=== PATIENT | female | born 1980 | race Two or more races ===

== ENCOUNTER 2020-02-22 08:27 | Day surgery (SDC) | payer OTHER, SELFPAY ==
--- NOTE | 2020-02-21 10:27 | HO.ANESPROP2 ---
HPI - Anesthesia Eval Consult details Narrative: 39yo F for EGD and colonoscopy: RUQ pain, rectal discharge PMFSH Past Medical History Medical History (Updated 02/22/20 @ 09:53 by David Grace MD) Asthma Gastric ulcer Hemorrhoids IBS (irritable bowel syndrome) Menorrhagia Seasonal allergic rhinitis Surgical History Surgical History Hx of tubal ligation Social History Social History Smoking Status: Never smoker Second Hand Smoke Exposure: No Use of substances other than those prescribed or required for medical reasons: No Advance Directives: No Advance Directives Information Provided: Yes Advance Directives on File: No Meds Allergies Allergy/AdvReac Type Severity Reaction Status Date / Time pollen Allergy Mild Itchy Eyes Uncoded 02/22/20 08:42 Home Medications Medication Instructions Recorded Confirmed Type dicyclomine 1 cap PO TID 02/21/20 02/21/20 History norethindrone (contraceptive) 1 tab PO DAILY 02/21/20 02/21/20 History [Leidy] Exam Exam Date and Time: February 21, 2020 1027 Assessment and Plan Assessment Anesthesia Assessment: Chart Reviewed
[2020-02-21 11:02] VITALS: BMI 29.2
--- NOTE | 2020-02-22 08:33 | MHC.SHP ---
Pre-Procedural Eval Section A The patient is an INPATIENT: No Changes since office visit: Yes Patient answered all questions; No Cold of Flu in the past 2 weeks, No New Medical Problems and No Changes in Medication The History & Physical has been completed within 30 days and I have reviewed it.: Yes Section B Chief Complaint: Rectal Discharge, RUQ Abdominal Pain Details of Present Illness: abdominal pain, diarrhea alternating with constipation, rectal bleeding and rectal discharge. Relevant Family History (Specify if Yes): No Relevant Social History: None Present Medications: see Short Stay Collaborative assessment Medical History: Significant History ( Mixed irritable bowel syndrome. Menorrhagia with irregular cycle. Seasonal allergic rhinitis due to other allergic trigger. ) History of Previous Operations: Relevant previous surgery/procedure and date(s) ( tubal ligation.) Allergies: Allergies Allergy/AdvReac Type Severity Reaction Status Date / Time pollen Allergy Unknown Uncoded 10/05/19 00:00 Review of Systems Sugical H&P ROS: Negative: Cardiovascular, Respiratory and Neurological and Yes, Specify: Gastrointestinal (abd pain, rectal bleeding with discharge) Exam Surgical H&P Exam: Normal: Heart, Normal: Lungs, Normal: Extremities and Normal: Abdomen Plan Diagnosis/Plan: Unchanged Patient has been examined and remains a candidate for the planned procedure
--- NOTE | 2020-02-22 08:36 | PM.OP ---
Brief Operative Note Date of procedure: 02/22/20 Pre-op diagnosis: abdominal pain, diarrhea alternating with constipation, rectal discharge Post-op diagnosis: other (Gastric ulcer, gastritis, diverticulosis, hemorrhoids) Procedure: FLEXIBLE TRANSORAL UPPER GASTROINTESTINAL ENDOSCOPY WITH BIOPSIES AND COLONOSCOPY TILL CECUM WITH BIOPSIES UPPER ENDOSCOPY Consent: Indications for the procedure and potential complications of bleeding, perforation, reaction to medications and missed diagnosis were discussed with the patient and informed consent was obtained. Instrument: Olympus GIF H 190 mid size upper endoscope Monitoring: Vital signs and clinical assessment, continuous EKG monitoring, Pulse oximetry, Carbon Dioxide monitoring and blood pressure monitoring were done throughout the procedure. Procedure: The patient was placed in the left lateral decubitis position and pre-procedure medications were administered and a bite block was placed. The endoscope was inserted into the mouth and advanced under direct vision to the third part of duodenum. A careful inspection was made as the upper endoscope was withdrawn including a retroflexed examination of the proximal stomach; Findings and interventions are described below. Findings: Esophagus: GE junction at 35cms. No esophagitis or Blackwood?s. Stomach: A 1.5 to 2 cms chronic appearing ulcer in the antrum - biopsied. Mild gastric erythema. Biopsies were obtained to check for H Pylori. Grade 2 flap valve on retroflexed examination of the cardia. Duodenum: Normal bulb and descending duodenum. Biopsies were obtained from 3rd part of duodenum to check for celiac sprue. Intervention: Biopsies as noted above COLONOSCOPY PROCEDURE NOTE Consent: Indications for the procedure and potential complications of bleeding, perforation, reaction to medications and missed diagnosis were discussed with the patient and informed consent was obtained. Instrument: Olympus PCF H 190 L variable stiffness pediatric colonoscope Monitoring: Vital signs and clinical assessment, intermittent blood pressure monitoring, continuous EKG monitoring, Pulse oximetry and Carbon Dioxide monitoring were done throughout the procedure. Colon withdrawl time was 12 minutes. Procedure: The patient was placed in the left lateral decubitis position and pre-procedure medications were administered. After a digital rectal examination of the ano-rectum, the video colonoscope was inserted into the rectum and advanced through the colon to the cecum. The colonoscope was slowly withdrawn in a retrograde panoramic fashion and the colon mucosa was carefully examined including a retroflexed view of the rectum. Findings and interventions are described below. Procedure Difficulty: Without difficulty Findings: Terminal Ileum: distal 10 cm was examined and showed a few 3-5 mm benign-appearing nodules (likely lymphoid hyperplasia) which were biopsied. Cecum: Normal Ascending Colon: Normal Transverse Colon: Normal Descending Colon: Normal Sigmoid Colon: Mild diverticulosis Rectum: Normal Ano-rectum: Moderate internal hemorrhoids In hypertrophied anal papillae Colon preparation: Excellent Impression and Post Procedure Diagnosis: Endoscopy Findings: STOMACH: A 1.5 to 2 cms chronic appearing ulcer in the antrum - biopsied. Mild gastric erythema. Biopsies were obtained to check for H Pylori. Grade 2 flap valve on retroflexed examination of the cardia (pt admits to taking Alleve 2 tab 3 times a week for neck pains). DUODENUM: Normal - biopsied to check for celiac sprue. Colonoscopy Findings: No polyps were detected. Random biopsies were obtained from the TI, right and left colon and rectum. Mild diverticulosis seen in the sigmoid colon Moderate hemorrhoids in hypertrophied anal papillae on retroflexed exam. Plan: Await pathology results Patient to schedule a FU appointment in the GI Clinic with COOKIE Veliz or David Grace M.D to discuss bx results. Start Omeprazole 20 mg daily for PUD and hold NSAID use. Repeat EGD in 12 weeks to confirm gastric ulcer has healed. Repeat Colonoscopy in 10 years if Colon biopsies are normal. Above findings were reviewed with the patient and Gastritis and diverticulosis handouts were given in the discharge area Surgeon: David Grace MD Anesthesia: MAC (Dr Eller) Family Readiness Support Assistant: Wilfrido Rojas Estimated blood loss (mL): 0 Pathology: other (A. Small bowel, B. Gastric antrum, C. Gastric ulcer, D. TI, E. Rt Colon, F. Left Colon, G. Rectum) Condition: stable Disposition: PACU
[2020-02-22 08:37] VITALS: BP 120/81; PULSE 98; RESP 18; TEMP 36.1; O2SAT 98
--- NOTE | 2020-02-22 08:55 | HO.ANESPROP2 ---
[facility] Past Medical History Medical History Asthma IBS (irritable bowel syndrome) Menorrhagia Seasonal allergic rhinitis Surgical History Surgical History Hx of tubal ligation Social History Social History Smoking Status: Never smoker Second Hand Smoke Exposure: No Use of substances other than those prescribed or required for medical reasons: No Advance Directives: No Advance Directives Information Provided: Yes Advance Directives on File: No Meds Allergies Allergy/AdvReac Type Severity Reaction Status Date / Time pollen Allergy Mild Itchy Eyes Uncoded 02/22/20 08:42 Home Medications Medication Instructions Recorded Confirmed Type dicyclomine 1 cap PO TID 02/21/20 02/21/20 History norethindrone (contraceptive) 1 tab PO DAILY 02/21/20 02/21/20 History [Leidy] Exam Exam Date and Time: February 22, 2020 0855 Height,Weight and Vital Signs: Height 5 ft 4 in Weight 77.111 kg Last Vital Signs Temp 97 F 02/22/20 08:37 Pulse 98 02/22/20 08:37 Resp 18 02/22/20 08:37 BP 120/81 02/22/20 08:37 Pulse Ox 98 02/22/20 08:37 Airway Mallampati Class: II TM Dist: >3cm Neck ROM: Full Heart: rrr Lungs: clear Assessment and Plan Assessment Anesthesia Assessment: Anesthesia Plan Discussed Final Anesthetic Review NPO: Yes ASA Class: II Final Preanesthetic Review: No Changes in Pt Med Stat, Meds/Allgs Chart Reviewed, Consent Obtained/Reviewed and Anes Risks/Benef Reviewed Patient Risk: Low Procedure Risk: Low Anesthetic Plan Anesthetic Plan: MAC:
[2020-02-22] MEDS: Lactated Ringers 1,000 ML 100 ML IVCONT (09:01)
[2020-02-22 09:48] VITALS: BP 113/88; PULSE 92; RESP 20; TEMP 36.6; O2SAT 99
[2020-02-22 10:04] VITALS: BP 107/75; PULSE 80; RESP 17; TEMP 36.6; O2SAT 99
--- NOTE | 2020-02-22 10:55 | HO.POSTANES ---
Post Anesthesia Evaluation Post Anesthesia Evaluation Vital Signs: Vital Signs Temp Pulse Resp BP Pulse Ox 02/22/20 10:04 97.9 F 80 17 107/75 99 02/22/20 09:48 97.9 F 92 20 113/88 99 02/22/20 08:37 97 F 98 18 120/81 98 Anesthesia: Monitored Mental Status: Awake Pain Control: Satisfactory Nausea/Vomiting: None Hydration: Adequate Anesthesia-Related Issues: No Anes. Related Issues
== END 2020-02-22 10:54 | disposition home or self-care (01) ==
PROVIDERS: Visit Provider Internal Medicine Gastroenterology
PROC: (CPT 45380; principal; 2020-02-22 10:50)
DX: R19.8 Other specified symptoms and signs involving the digestive system and abdomen (principal); K58.2 Mixed irritable bowel syndrome; K57.30 Diverticulosis of large intestine without perforation or abscess without bleeding; K64.8 Other hemorrhoids; K62.89 Other specified diseases of anus and rectum; K29.70 Gastritis, unspecified, without bleeding; K25.9 Gastric ulcer, unspecified as acute or chronic, without hemorrhage or perforation; F41.9 Anxiety disorder, unspecified; J30.9 Allergic rhinitis, unspecified; Z79.51 Long term (current) use of inhaled steroids; Z79.899 Other long term (current) drug therapy
CPT/HCPCS: 45380; 43239; 88305; 88342

== ENCOUNTER → 2020-04-02 12:54 | Outpatient (BNVA) | payer OTHER, SELFPAY | PROVIDERS: PCP Internal Medicine; Referring Provider Internal Medicine; Visit Provider Dietitian, Registered | DX: Z76.89 Persons encountering health services in other specified circumstances (principal) ==

== ENCOUNTER 2020-08-14 14:58 | Outpatient (REF) | payer OTHER, SELFPAY ==
--- NOTE | ~2020-08-14 | XR_ITS ---
EXAMINATION: XR CHEST CLINICAL INFORMATION: Shortness of breath COMPARISON: None TECHNIQUE: 2 views of the chest were obtained. FINDINGS: No significant abnormality is noted involving the heart, lungs, mediastinum, bony thorax or soft tissues. XR/XR chest 2V IMPRESSION: No acute disease.
== END 2020-08-14 14:59 | disposition home or self-care (01) ==
LOC: HO.HMGCX 14:58
PROVIDERS: Visit Provider Hospitalist
DX: R06.02 Shortness of breath (principal)
CPT/HCPCS: 71046

== ENCOUNTER 2020-09-27 06:42 | Outpatient (REF) | payer OTHER, SELFPAY ==
[2020-09-27 11:06] LABS: MANUAL DIFF FLAG NO
[2020-09-27 11:12] LABS: Basophils Absolute Auto 0.1 X10*3/uL (0.0-0.2); Basophils Percent Auto 1.1 % (0-2); Eosinophils Absolute Auto 0.1 X10*3/uL (0.0-0.4); Eosinophils Percent Auto 1.9 % (0-4); Hematocrit 38.3 % (37-47); Hemoglobin 12.2 g/dl (12.0-16.0); Imm Gran Abs Auto 0.01 X10*3/uL (0.00-0.03); Imm Gran Pct Auto 0.2 % (0.0-0.4); Lymphocytes Absolute Auto 1.9 X10*3/uL (1.2-4.9); Lymphocytes Percent Auto 40.5 % (20-40); Mean Corpuscular HGB Conc 31.9 g/dl (31.0-35.0); Mean Corpuscular Hemoglobin 27.1 pg (27.0-33.0); Mean Corpuscular Volume 84.9 fL (80-98); Mean Platelet Volume 12.1 fL (9.4-12.3); Monocytes Absolute Auto 0.4 X10*3/uL (0.1-1.2); Monocytes Percent Auto 8.1 % (2-11); Neutrophils Absolute Auto 2.3 X10*3/uL (2.0-8.3); Neutrophils Percent Auto 48.2 % (45-73); Platelet Count 241 X10*3/uL (160-400); Red Blood Count 4.51 X10*6/uL (4.20-5.50); Red Cell Distribution Width 14.8 % (11.0-16.0); White Blood Count 4.7 X10*3/uL (4.8-10.8)
[2020-09-27 11:46] LABS: Alanine Aminotransferase 23 U/L (0-31); Anion Gap 8 (12-20); Aspartate Amino Transferase 19 U/L (5-31); Blood Urea Nitrogen 12 mg/dL (9-16); Calcium 8.8 mg/dL (8.4-10.2); Carbon Dioxide 27 mmol/L (22-29); Chloride 107 mmol/L (96-108); Cholesterol 258 mg/dL; Estimated Glomerular Filt Rate > 60; Glucose Fasting 92 mg/dL (60-99); HDL Cholesterol 68 mg/dL; LDL Cholesterol Calculated 167 mg/dl; Potassium 4.3 mmol/L (3.3-5.1); Sodium 138 mmol/L (135-145); Triglycerides 116 mg/dL
[2020-09-28 07:28] LABS: SARS COV2 IgG Positive (Negative)
== END 2020-09-27 06:43 | disposition home or self-care (01) ==
LOC: HO.HMGCLDS 06:42
PROVIDERS: PCP Internal Medicine; Visit Provider Internal Medicine
DX: Z00.01 Encounter for general adult medical examination with abnormal findings (principal); F41.8 Other specified anxiety disorders; J45.20 Mild intermittent asthma, uncomplicated; K25.9 Gastric ulcer, unspecified as acute or chronic, without hemorrhage or perforation; K58.1 Irritable bowel syndrome with constipation; K64.9 Unspecified hemorrhoids; I10 Essential (primary) hypertension; E04.9 Nontoxic goiter, unspecified; Z86.16 Personal history of COVID-19; Z86.39 Personal history of other endocrine, nutritional and metabolic disease
CPT/HCPCS: 36415; 80048; 80061; 82306; 84443; 84450; 84460; 85025; 86769

== ENCOUNTER 2020-10-30 11:04 | Outpatient (REF) | payer OTHER, SELFPAY ==
--- NOTE | ~2020-10-30 | MM_ITS ---
EXAMINATION: MM SCREENING DIGITAL BREAST TOMOSYNTHESIS, BILATERAL CLINICAL INFORMATION: Screening. Asymptomatic. The lifetime risk of breast cancer based on the Tyrer-Cuzick Model is 15.2%. COMPARISON: Mammography: None. TECHNIQUE: Digital breast tomosynthesis is performed in both the craniocaudal and mediolateral oblique views along with computer-aided detection (CAD). Synthesized 2D images are generated from the tomosynthesis. FINDINGS: The breasts are heterogeneously dense, which may obscure small masses (ACR BI-RADS breast composition Category c). No suspicious abnormal dominant masses or grouping of microcalcifications within the left breast is identified. There is nodular dense breast parenchyma present. Within the anterior medial aspect of the right breast, approximately 3 cm from nipple there is a circumscribed somewhat lobular density without spiculation or microcalcifications for which spot compression view and possible ultrasound is recommended. MM/MM tomosynthesis screening BI IMPRESSION: Right breast density for further evaluation with spot compression view and possible ultrasound. ASSESSMENT: BI-RADS 0: Incomplete - Need Additional Imaging Evaluation. RECOMMENDATION: 1. Additional views of the right breast. 2. Targeted ultrasound if warranted after review of the additional views. 3. Radiology department staff will contact the patient for additional imaging. This patient's information was entered into a reminder system with a target due date for their next mammogram.
== END 2020-10-30 11:05 | disposition home or self-care (01) ==
LOC: HO.MAMMO 11:04
PROVIDERS: Visit Provider Internal Medicine
DX: Z12.31 Encounter for screening mammogram for malignant neoplasm of breast (principal)
CPT/HCPCS: 77063; 77067

== ENCOUNTER 2020-11-13 10:40 | Outpatient (REF) | payer OTHER, SELFPAY ==
--- NOTE | ~2020-11-13 | MM_ITS ---
EXAMINATION: MM DIAGNOSTIC DIGITAL BREAST TOMOSYNTHESIS, RIGHT US DIAGNOSTIC ULTRASOUND BREAST, RIGHT CLINICAL INFORMATION: Recall from baseline exam for question of asymmetric density anterior medial right breast. Family history premenopausal breast cancer maternal aunt. TC score 15%. COMPARISON: Mammography: 10/30/2020, baseline. TECHNIQUE: Digital breast tomosynthesis is performed. 2D images are generated from the tomosynthesis. The following views are obtained: 3-D spot CC, 3-D ML. Ultrasound right breast is targeted to the medial breast. Grayscale imaging and color Doppler are performed without and with harmonics. FINDINGS: There are scattered areas of fibroglandular density (ACR BI-RADS breast composition Category b). Additional views show scattered fibroglandular densities without underlying mass or architectural abnormality. Ultrasound demonstrates no cystic or solid mass or architectural abnormality. No focal duct ectasia or skin thickening or edema tracking in soft tissue planes. Results are discussed with the patient at time of visit. MM/MM tomosynthesis added views R IMPRESSION: 1. Additional views show no asymmetric density or mass or architectural abnormality. 2. Unremarkable targeted right breast ultrasound. ASSESSMENT: BI-RADS 1: Negative RECOMMENDATION: Routine annual mammography screening. This patient's information was entered into a reminder system with a target due date for their next mammogram.
== END 2020-11-13 10:41 | disposition home or self-care (01) ==
LOC: HO.MAMMO 10:40
PROVIDERS: Visit Provider Internal Medicine
DX: R92.2 Inconclusive mammogram (principal)
CPT/HCPCS: 76642; 77061; 77065

== ENCOUNTER → 2021-06-24 11:26 | Outpatient (BNVA) | payer OTHER, SELFPAY | PROVIDERS: PCP Internal Medicine; Visit Provider Physician Assistant ==

== ENCOUNTER → 2021-09-23 11:58 | Outpatient (BNVA) | payer OTHER, SELFPAY | PROVIDERS: PCP Internal Medicine; Referring Provider Internal Medicine; Visit Provider Physician Assistant | DX: K58.1 Irritable bowel syndrome with constipation (principal) ==

== ENCOUNTER 2021-10-15 09:55 | Outpatient (REF) | payer OTHER, SELFPAY ==
--- NOTE | ~2021-10-15 | XR_ITS ---
EXAMINATION: XR CHEST CLINICAL INFORMATION: Shortness of breath COMPARISON: None TECHNIQUE: 2 views of the chest were obtained. FINDINGS: No significant abnormality is noted involving the heart, lungs, mediastinum, bony thorax or soft tissues. XR/XR chest 2V IMPRESSION: Unremarkable chest examination.
== END 2021-10-15 09:56 | disposition home or self-care (01) ==
LOC: HO.HMGCX 09:55
PROVIDERS: PCP Internal Medicine; Visit Provider Internal Medicine
DX: R06.02 Shortness of breath (principal); J06.9 Acute upper respiratory infection, unspecified; U07.1 COVID-19
CPT/HCPCS: 71046

== ENCOUNTER 2021-12-07 08:25 | Outpatient (REF) | payer OTHER, SELFPAY ==
--- NOTE | ~2021-12-07 | US_ITS ---
EXAMINATION: US THYROID CLINICAL INFORMATION: Nontoxic multinodular goiter. COMPARISON: None TECHNIQUE: Linear transducer grayscale and color Doppler examination with attention to the region of the thyroid. FINDINGS: SIZE: Measurements of the thyroid lobes and nodules are given in sagittal, anteroposterior and transverse dimensions respectively. Right Thyroid Lobe: 7.2 x 2.7 x 2.9 cm, volume 29.5 mL. Parenchyma: The gland echotexture is homogeneous. Thyroid vascularity is normal. Left Thyroid Lobe: 7.0 x 2.2 x 2.9 cm, volume 23.4 mL. Parenchyma: The gland echotexture is homogeneous. Thyroid vascularity is normal. Isthmus: 0.7 cm in maximum AP dimension. Estimated total number of nodules greater than or equal to 1 cm: 0. Irrigation Specialist nodules are described as follows: 1. Location: Left mid. Size: 0.6 x 0.4 x 0.6 cm, volume 0.07 mL. Nodule characteristics: Composition: Spongiform (0). Echogenicity: Anechoic (0). Shape: Not taller than wide (0). Margins: Smooth (0). Echogenic Foci: None (0). ACR TI-RADS total points: 0 ACR TI-RADS category: 1 NODES: No lymphadenopathy is seen in the tissue surrounding the thyroid gland. US/US thyroid IMPRESSION: 1. A small left thyroid lobe nodule is seen, as detailed. 2. There is a diffuse goiter. ACR TI-RADS RECOMMENDATION REFERENCE: Ultrasound-guided fine-needle aspiration, followup ultrasound, no further follow up. * TR1 (0 point) and TR 2 (2 points): No FNA or follow up * TR3 (3 points): FNA if more than or equal to 2.5 cm in maximum dimension, followup ultrasound in 1, 3 and 5 years if 1.5 to 2.4 cm in maximum dimension. * TR4 (4-6 points): FNA if more than or equal to 1.5 cm in maximum dimension, followup ultrasound in 1, 2, 3 and 5 years if 1 to 1.4 cm in maximum dimension. * TR5 (more than or equal to 7 points): FNA if more than or equal to 1 cm in maximum dimension, followup ultrasound every year for 5 years if 0.5 to 0.9 cm in maximum dimension. * TR3, TR4 or TR5 nodules that are below the size threshold for follow up receive no follow up.
== END 2021-12-07 08:26 | disposition home or self-care (01) ==
LOC: HO.HMGCX 08:25
PROVIDERS: PCP Internal Medicine; Visit Provider Internal Medicine
DX: E04.2 Nontoxic multinodular goiter (principal)
CPT/HCPCS: 76536

== ENCOUNTER 2021-12-24 09:04 | Outpatient (REF) | payer OTHER, SELFPAY ==
[2021-12-24 11:55] LABS: Alanine Aminotransferase 14 U/L (0-31); Albumin Level 4.2 g/dL (3.5-5.0); Alkaline Phosphatase 44 U/L (39-117); Aspartate Amino Transferase 15 U/L (5-31); Bilirubin Direct 0.2 mg/dL (0.0-0.5); Bilirubin Total 0.5 mg/dL (0.0-1.0); Total Protein 7.1 g/dL (6.5-8.0)
== END 2021-12-24 09:05 | disposition home or self-care (01) ==
LOC: HO.HMGCLDS 09:04
PROVIDERS: PCP Internal Medicine; Visit Provider Internal Medicine
DX: R10.11 Right upper quadrant pain (principal)
CPT/HCPCS: 36415; 80076

== ENCOUNTER 2022-01-19 09:47 | Outpatient (REF) | payer OTHER, SELFPAY ==
--- NOTE | ~2022-01-19 | US_ITS ---
EXAMINATION: US ABDOMEN COMPLETE CLINICAL INFORMATION: Right upper quadrant pain x2 months. COMPARISON: None TECHNIQUE: Real-time imaging of the abdominal viscera. FINDINGS: PANCREAS: Normal. ABDOMINAL AORTA: The proximal, mid, and distal segments are normal in caliber. INFERIOR VENA CAVA: Visualized portions are normal. LIVER: Normal. The liver is normal in size. The liver contour is normal. Parenchymal echogenicity is normal. No focal hepatic lesion. There is no intrahepatic biliary duct dilatation seen. GALLBLADDER: Gallbladder wall thickness is 0.23 cm. The gallbladder is physiologically distended without evidence of stones, sludge, polyps, wall thickening or pericholecystic fluid. COMMON BILE DUCT: Normal in caliber measuring 0.31 cm in diameter. RIGHT KIDNEY: Normal. No hydronephrosis. No renal calculi or focal parenchymal lesions. The kidney measures 10.2 cm in maximum dimension. LEFT KIDNEY: Normal. No hydronephrosis. No renal calculi or focal parenchymal lesions. The kidney measures 10.9 cm in maximum dimension. SPLEEN: Normal. The spleen measures 12.5 cm in maximum dimension. FREE FLUID: None. US/US abdomen complete IMPRESSION: Unremarkable complete abdomen ultrasound.
== END 2022-01-19 09:48 | disposition home or self-care (01) ==
LOC: HO.HMGCX 09:47
PROVIDERS: PCP Internal Medicine; Visit Provider Internal Medicine
DX: R10.11 Right upper quadrant pain (principal)
CPT/HCPCS: 76700

== ENCOUNTER 2022-02-17 12:13 | Outpatient (REF) | payer OTHER, SELFPAY ==
--- NOTE | ~2022-02-17 | MM_ITS ---
EXAMINATION: MM SCREENING DIGITAL BREAST TOMOSYNTHESIS, BILATERAL CLINICAL INFORMATION: Screening. Asymptomatic. The lifetime risk of breast cancer based on the Tyrer-Cuzick Model is 13.5%. COMPARISON: Mammography: 11/13/2020 and 10/30/2020. TECHNIQUE: Digital breast tomosynthesis is performed in both the craniocaudal and mediolateral oblique views along with computer-aided detection (CAD). Synthesized 2D images are generated from the tomosynthesis. FINDINGS: The breasts are heterogeneously dense, which may obscure small masses (ACR BI-RADS breast composition Category c). There is a stable parenchymal pattern of the right breast. Within the deep superior aspect of the left breast there is an asymmetric density present which spot compression view is recommended. MM/MM tomosynthesis screening BI IMPRESSION: Left breast density for further evaluation. ASSESSMENT: BI-RADS 0: Incomplete - Need Additional Imaging Evaluation RECOMMENDATION: 1. Additional views of the left breast. 2. Targeted ultrasound if warranted after review of the additional views. 3. Radiology department staff will contact the patient for additional imaging. This patient's information was entered into a reminder system with a target due date for their next mammogram.
== END 2022-02-17 12:14 | disposition home or self-care (01) ==
LOC: HO.MAMMO 12:13
PROVIDERS: PCP Internal Medicine; Visit Provider Internal Medicine
DX: Z12.31 Encounter for screening mammogram for malignant neoplasm of breast (principal)
CPT/HCPCS: 77063; 77067

== ENCOUNTER 2022-06-09 14:02 | Outpatient (REF) | payer OTHER, SELFPAY ==
--- NOTE | ~2022-06-09 | MM_ITS ---
EXAMINATION: MM DIAGNOSTIC DIGITAL BREAST TOMOSYNTHESIS, LEFT CLINICAL INFORMATION: Asymmetric density deep superior left breast. COMPARISON: Mammography: February 17, 2022 and studies dating back to October 30, 2020 TECHNIQUE: Digital breast tomosynthesis is performed. 2D images are generated from the tomosynthesis. The following views are obtained: 90 degree mediolateral and mediolateral oblique views of the left breast. FINDINGS: The breasts are heterogeneously dense, which may obscure small masses (ACR BI-RADS breast composition Category c). Additional views show no significant mass, architectural abnormality, or abnormal calcifications. The density appears to have represented superimposition of structures. Results are provided to the patient at time of visit by the technologist. MM/MM tomosynthesis added views L IMPRESSION: No mammographic evidence of malignancy. ASSESSMENT: BI-RADS 1: Negative RECOMMENDATION: Routine annual mammography screening. This patient's information was entered into a reminder system with a target due date for their next mammogram.
== END 2022-06-09 14:03 | disposition home or self-care (01) ==
LOC: HO.MAMMO 14:02
PROVIDERS: PCP Internal Medicine; Visit Provider Internal Medicine
DX: R92.2 Inconclusive mammogram (principal)
CPT/HCPCS: 77061; 77065

== ENCOUNTER 2022-10-16 07:48 | Outpatient (REF) | payer OTHER, SELFPAY ==
[2022-10-16 11:03] LABS: MANUAL DIFF FLAG NO
[2022-10-16 11:10] LABS: Basophils Absolute Auto 0.1 X10*3/uL (0.0-0.2); Basophils Percent Auto 1.2 % (0-2); Eosinophils Percent Auto 0.8 % (0-4); Hematocrit 37.1 % (37.0-47.0); Hemoglobin 11.7 g/dl (12.0-16.0); Imm Gran Abs Auto 0.01 X10*3/uL (0.00-0.03); Imm Gran Pct Auto 0.2 % (0.0-0.4); Lymphocytes Absolute Auto 1.5 X10*3/uL (1.2-4.9); Lymphocytes Percent Auto 31.2 % (20-40); Mean Corpuscular HGB Conc 31.5 g/dl (31.0-35.0); Mean Corpuscular Hemoglobin 25.8 pg (27.0-33.0); Mean Corpuscular Volume 81.9 fL (80.0-98.0); Mean Platelet Volume 11.8 fL (9.4-12.3); Monocytes Absolute Auto 0.3 X10*3/uL (0.1-1.2); Monocytes Percent Auto 5.9 % (2-11); Neutrophils Percent Auto 60.7 % (45-73); Platelet Count 250 X10*3/uL (160-400); Red Blood Count 4.53 X10*6/uL (4.20-5.50); Red Cell Distribution Width 16.6 % (11.0-16.0); White Blood Count 4.9 X10*3/uL (4.8-10.8)
[2022-10-16 11:35] LABS: Alanine Aminotransferase 9 U/L (0-31); Anion Gap 9 (12-20); Aspartate Amino Transferase 14 U/L (5-31); Blood Urea Nitrogen 14 mg/dL (9-16); Calcium 9.3 mg/dL (8.4-10.2); Carbon Dioxide 23 mmol/L (22-29); Chloride 109 mmol/L (96-108); Cholesterol 227 mg/dL; Estimated Glomerular Filt Rate > 60; Glucose Fasting 93 mg/dL (60-99); HDL Cholesterol 53 mg/dL; LDL Cholesterol Calculated 159 mg/dl; Potassium 4.2 mmol/L (3.3-5.1); Sodium 137 mmol/L (135-145); Triglycerides 79 mg/dL
[2022-10-16 11:51] LABS: Free T4 (Free Thyroxine) 0.94 ng/dL (0.71-1.85); Vitamin D 25-OH Total 32.1 ng/mL (>30)
[2022-10-18 19:18] LABS: Thyroid Peroxidase Antibodies 1 IU/mL (<9)
== END 2022-10-16 07:49 | disposition home or self-care (01) ==
LOC: HO.HMGCLDS 07:48
PROVIDERS: PCP Internal Medicine; Visit Provider Internal Medicine
DX: Z00.01 Encounter for general adult medical examination with abnormal findings (principal); E04.2 Nontoxic multinodular goiter; E55.9 Vitamin D deficiency, unspecified; E78.5 Hyperlipidemia, unspecified; F41.9 Anxiety disorder, unspecified; J45.20 Mild intermittent asthma, uncomplicated; K58.1 Irritable bowel syndrome with constipation; E03.9 Hypothyroidism, unspecified
CPT/HCPCS: 36415; 80048; 80061; 82306; 84439; 84450; 84460; 85025; 86376

== ENCOUNTER → 2022-10-20 12:23 | Outpatient (BNVA) | payer OTHER, SELFPAY | PROVIDERS: Visit Provider Physician Assistant ==

== ENCOUNTER 2023-07-07 09:26 | Outpatient (AMB) | payer OTHER, SELFPAY ==
[2023-07-07 11:03] VITALS: BP 116/68; PULSE 96; TEMP 36.6; O2SAT 98; BMI 32.8
--- NOTE | 2023-07-07 11:03 | AM.OFFWIN_ITS ---
Intake Vital Signs 07/07/23 11:03 Height 5 ft 4 in Weight 191 lb BMI 32.8 BP 116/68 Blood Pressure Location Lt brachial Position Sitting Pulse 96 Pulse Source Pulse Oximeter Temp 97.9 F Temp Source Temporal Artery Scan Pulse Oximetry (%) 98 Oxygen Delivery Method Room Air Intake Visit Reasons: EP RT side pain Intake Note: pt is here today for rt side pain started 1 month ago Patient Tobacco Use Status: Never used Tobacco Allergies pollen Allergy (Mild, Uncoded 09/29/22 13:15) Itchy Eyes Do you need a note to return to daycare/school/sports/work: No HPI EP RT side pain HPI Details This is a 42-year-old female patient who presents today with right upper quadrant pain for about 1 month. States this is intermittent, and a dull pulling/aching sensation 3/10. States that it is worse when in a seated position, and resolves when she is lying down. Denies any cramping, epigastric pain, fever, chills, nausea or vomiting. States she has IBS so frequently does have diarrhea, however no recent change in bowel habits. States that she did have a fall down a flight of stairs about 1 year ago, at which time she did injure her right side, however she was evaluated at the emergency department and did not sustain any fractures. Denies any new trauma. No urinary issues. [facility], LAT[facility] Medical History Multinodular non-toxic goiter Dyslipidemia Dyslipidemia (high LDL; low HDL) Vitamin D deficiency Lumbago with sciatica, right side Depression with anxiety Mild intermittent asthma COVID-19 virus infection Hemorrhoids Gastric ulcer Seasonal allergic rhinitis Menorrhagia IBS (irritable bowel syndrome) Surgical History History of esophagogastroduodenoscopy (EGD) H/O colonoscopy Hx of tubal ligation Family History Father No problems noted. Paternal Grandmother No problems noted. Paternal Uncle Mental health disorder Paternal Grandmother Mental health disorder Mother Mental health disorder Social History Housing: Apartment Alcohol intake: current Alcohol intake frequency: holidays/special occasions only Patient Tobacco Use Status: Never used Tobacco e-Cigarette/Vaping Use: Never Used Second Hand Smoke Exposure: No service: No Current occupational status: employed Cognitive needs: No Hearing needs: No Vision needs: Yes Review of Systems Const All systems reviewed & are unremarkable except as noted in HPI and below Physical Exam Vital Signs: Last Vital Signs Temp 97.9 F 07/07/23 11:03 Pulse 96 07/07/23 11:03 BP 116/68 07/07/23 11:03 Pulse Ox 98 07/07/23 11:03 Oxygen Delivery Method Room Air 07/07/23 11:03 BMI result Body Mass Index 32.8 Const General: cooperative and no acute distress Resp Effort & Inspection: normal respiratory effort and able to speak in complete sentences Auscultation: clear to auscultation bilaterally Cardio Palpation: normal PMI Rate: regular rate Rhythm: regular rhythm GI Other: Mild tenderness to deep palpation RUQ. No rebound tenderness. No guarding. Inspection: Yes normal to inspection Palpation (GI): Soft to palpation Percussion: Yes normal to percussion Auscultation: normal bowel sounds General: Yes bladder normal to palpation and Yes no CVA tenderness Bimanual exam- vagina & uterus: bladder normal to palpation Back/Spine/Pelvis Back: no CVA tenderness Skin General skin exam: no rashes or lesions noted Extrem General: Yes capillary refill normal and Yes no clubbing, cyanosis or edema Psych Appearance: grossly normal Mental Status: mental status grossly normal Speech and movement: Normal speech and movement present Assessment & Plan Assessment & Plan (1) Right upper quadrant pain: Code(s): R10.11 - Right upper quadrant pain Plan: Patient has a one-month history of dull right upper quadrant pain. It does seem to change and resolve with movement, and so may represent a musculoskeletal condition in nature. I am going to order some labs for her today, and will follow-up with her via phone once these are available. I also would like her to follow up with her PCP Dr. Cherry within the next several weeks should this condition persist, as she has not due for an annual exam until September. I advised her to go to the emergency department if her pain worsens or new symptoms develop. She verbalizes understanding and agrees to plan. Orders: Orders Basic Metabolic Panel Today R10.11 - Right upper quadrant pain Liver Panel Today R10.11 - Right upper quadrant pain Complete Blood Count Auto Diff Today R10.11 - Right upper quadrant pain Coding Level of Care Code Est Pt Level 3 (02798) Diagnoses Right upper quadrant pain R10.11
== END 2023-07-07 12:16 | disposition home or self-care (01) ==
PROVIDERS: PCP Internal Medicine; Visit Provider Nurse Practitioner Family
DX: R10.11 Right upper quadrant pain (principal)
CPT/HCPCS: 99213

== ENCOUNTER 2023-07-07 12:08 | Outpatient (REF) | payer OTHER, SELFPAY ==
[2023-07-07 13:07] LABS: MANUAL DIFF FLAG NO
[2023-07-07 13:20] LABS: Basophils Absolute Auto 0.1 X10*3/uL (0.0-0.2); Basophils Percent Auto 1.1 % (0-2); Eosinophils Percent Auto 0.9 % (0-4); Hematocrit 41.7 % (37.0-47.0); Hemoglobin 13.8 g/dl (12.0-16.0); Imm Gran Abs Auto 0.01 X10*3/uL (0.00-0.03); Imm Gran Pct Auto 0.2 % (0.0-0.4); Lymphocytes Absolute Auto 1.5 X10*3/uL (1.2-4.9); Lymphocytes Percent Auto 34.1 % (20-40); Mean Corpuscular HGB Conc 33.1 g/dl (31.0-35.0); Mean Corpuscular Hemoglobin 28.5 pg (27.0-33.0); Monocytes Absolute Auto 0.3 X10*3/uL (0.1-1.2); Monocytes Percent Auto 6.7 % (2-11); Neutrophils Absolute Auto 2.5 x10*3/uL (2.0-8.3); Platelet Count 246 X10*3/uL (160-400); Red Blood Count 4.85 X10*6/uL (4.20-5.50); Red Cell Distribution Width 15.1 % (11.0-16.0); White Blood Count 4.5 X10*3/uL (4.8-10.8)
[2023-07-07 14:06] LABS: Alanine Aminotransferase 28 U/L (0-31); Albumin Level 4.1 g/dL (3.5-5.0); Alkaline Phosphatase 52 U/L (39-117); Anion Gap 12 (12-20); Aspartate Amino Transferase 21 U/L (5-31); Bilirubin Direct 0.1 mg/dL (0.0-0.5); Bilirubin Total 0.3 mg/dL (0.0-1.0); Blood Urea Nitrogen 14 mg/dL (9-16); Calcium 9.6 mg/dL (8.4-10.2); Carbon Dioxide 27 mmol/L (22-29); Chloride 104 mmol/L (96-108); Estimated Glomerular Filt Rate > 60; Glucose Random 90 mg/dL (60-115); Sodium 139 mmol/L (135-145); Total Protein 7.5 g/dL (6.5-8.0)
== END 2023-07-07 12:09 | disposition home or self-care (01) ==
LOC: HO.HMGCLDS 12:08
PROVIDERS: PCP Internal Medicine; Visit Provider Nurse Practitioner Family
DX: R10.11 Right upper quadrant pain (principal)
CPT/HCPCS: 36415; 80048; 80076; 85025

== ENCOUNTER 2023-07-15 11:28 | Outpatient (REF) | payer OTHER, SELFPAY | END 2023-07-15 11:29 | disposition home or self-care (01) | LOC: HO.MAMMO 11:28 | PROVIDERS: PCP Internal Medicine; Visit Provider Internal Medicine | DX: Z12.31 Encounter for screening mammogram for malignant neoplasm of breast (principal) | CPT/HCPCS: 77063; 77067 ==

== ENCOUNTER → 2023-07-15 11:30 | Outpatient (BNV) | payer OTHER, SELFPAY | PROVIDERS: PCP Internal Medicine; Visit Provider Radiology Diagnostic Radiology | DX: Z12.31 Encounter for screening mammogram for malignant neoplasm of breast (principal) | CPT/HCPCS: 77063; 77067 ==

== ENCOUNTER 2023-08-04 10:21 | Outpatient (AMB) | payer OTHER, SELFPAY ==
[2023-08-04 10:24] VITALS: BP 112/60; PULSE 87; O2SAT 98; BMI 33.5
--- NOTE | 2023-08-04 10:24 | A.OFFPC_ITS ---
Vital Signs 08/04/23 10:24 Height 5 ft 4 in Weight 195 lb BMI 33.5 BP 112/60 Blood Pressure Location Lt brachial Position Sitting Pulse 87 Pulse Source Pulse Oximeter Pulse Oximetry (%) 98 Oxygen Delivery Method Room Air Intake Visit Reasons: follow up from walk in per CB Intake Note: Pt is here today to f/u walkin Rt upper quadrant pain going to Rt leg Allergies pollen Allergy (Mild, Uncoded 08/07/23 21:09) Itchy Eyes Medication List - Last Reconciled 08/07/23 by Latosha Cherry MD albuterol sulfate 90 mcg/actuation 2 puffs inhalation QID PRN albuterol sulfate 0.63 mg (3 mL) inhalation QID PRN 30 days buspirone 5 mg PO TID cyclobenzaprine 10 mg PO BEDTIME PRN dicyclomine 10 mg PO TID PRN fluticasone propionate 50 mcg/actuation 1 spray intranasal DAILY omeprazole 40 mg (2 x 20 mg) PO DAILY Tobacco use date assessed: 08/04/23 Dental Screening Dental Screen Date: 08/04/23 Did you have a dental visit in the last 12 months?: Yes Did you have a dental problem in the last 6 months where you did not have access to dental care?: No Was dental information given to patient?: Patient has dentist HPI follow up from walk in per CB HPI Details 42-year-old female with history of hyper lipidemia, anxiety disorder, presents today after recent visit at the walk-in clinic complaining of right upper quadrant pain, which has been present now for about 1 month. She describes pain as intermittent, and a dull pulling/aching sensation , worse when in a seated position, and resolves when she is lying down. Denies any cramping, epigastric pain, fever, chills, nausea or vomiting. States she has IBS so frequently does have diarrhea, however no recent change in bowel habits. Has been diagnosed to have gastric ulcer a year ago but was unable to get an upper endoscopy due to insurance issues, currently has been taking omeprazole 40 mg daily, which has helped. [facility] Medical History (Updated 08/07/23 @ 22:10 by Latosha Cherry MD) Left thyroid nodule Dyslipidemia Dyslipidemia (high LDL; low HDL) Vitamin D deficiency Lumbago with sciatica, right side Depression with anxiety Mild intermittent asthma COVID-19 virus infection Hemorrhoids Gastric ulcer Seasonal allergic rhinitis Menorrhagia IBS (irritable bowel syndrome) Surgical History History of esophagogastroduodenoscopy (EGD) H/O colonoscopy Hx of tubal ligation Family History Father No problems noted. Paternal Grandmother No problems noted. Paternal Uncle Mental health disorder Paternal Grandmother Mental health disorder Mother Mental health disorder Social History Housing: Apartment Alcohol intake: current Alcohol intake frequency: holidays/special occasions only Patient Tobacco Use Status: Never used Tobacco e-Cigarette/Vaping Use: Never Used Second Hand Smoke Exposure: No service: No Current occupational status: employed Cognitive needs: No Hearing needs: No Vision needs: Yes Questionnaire PHQ-9 Over the last 2 weeks, how often have you been bothered by any of the following problems? 1. Little interest or pleasure in doing things: several days 2. Feeling down, depressed, or hopeless: several days 3. Trouble falling or staying asleep, or sleeping too much: more than half the days 4. Feeling tired or having little energy: nearly every day 5. Poor appetite or overeating: not at all 6. Feeling bad about yourself - or that you are a failure or have let yourself or your family down: more than half the days 7. Trouble concentrating on things, such as reading the newspaper or watching television: several days 8. Moving or speaking so slowly that other people could have noticed. Or the opposite - being so fidgety or restless that you have been moving around a lot more than usual: several days 9. Thoughts that you would be better off or of hurting yourself in some way: not at all Total score: 11 Source: Developed by Drs. Jose Sanchez, Giselle Valdez, Jose Tabor and colleagues, with an educational declan from [employer]. Thrive Questionnaire Date Thrive assessed: 08/04/23 I am a: Patient What is your living situation today?: I have a steady place to live Within the past 12 months, did the food you bought not last and you didn't have the money to get more?: Never true Within the past 12 months, did you worry whether your food would run out before you got money to buy more?: Never true Do you have trouble paying for medicines?: No Do you have trouble getting transportation to medical appointments?: No Do you have trouble paying your heating and electricity bill?: No Do you have trouble taking care of your child, family member or friend?: No Do you have trouble with day-to-day activities such as bathing, preparing meals, shopping, managing finances, etc.?: No Are you currently unemployed and looking for a job?: No Are you interested in more education?: No THRIVE Score: 0 AUDIT C Alcohol Use Questionnaire (AUDIT-C) 1. How often do you have a drink containing alcohol?: Monthly or less 2. How many drinks containing alcohol do you have on a typical day when you are drinking?: 1 or 2 3. How often do you have six or more drinks on one occasion?: Never Total Score: 1 ANTWAN-7 AMB Questionnaire ANTWAN-7 Date ANTWAN - 7 assessed: 08/04/23 Feeling nervous, anxious, or on edge: 1 = Several days Not being able to stop or control worryin = Not at all Worrying too much about different things: 1 = Several days Trouble relaxin = Several days Being so restless that it is hard to sit still: 1 = Several days Becoming easily annoyed or irritable: 0 = Not at all Feeling afraid as if something awful might happen: 0 = Not at all Total ANTWAN-7 score (0-4 normal; 5-9 mild; 10-14 moderate; 15-21 severe): 4 Source: Developed by Drs. Jose Sanchez, Giselle Valdez, Jose Tabor and colleagues, with an educational declan from [employer]. ANTWAN-7 Assessment Billing ANTWAN-7 Assessment Tool: ANTWAN-7 Assessment 58712 Review of Systems Const Denies headache(s) and Denies malaise ENT Denies dysphagia, Denies vertigo, Denies dizziness, Denies headache(s), Denies hoarseness, Denies sinus pressure, Denies sore throat and Denies throat swelling Card Denies chest pain, Denies rapid heart rate, Denies irregular heart rhythm, Denies lightheadedness and Denies dyspnea Resp Denies chest congestion, Denies cough and Denies dyspnea GI Denies melena, Denies hematochezia, Denies dysphagia, Denies dyspepsia and Reports heartburn Reports no additional complaints Musc Reports no additional complaints Skin/Breast Denies rash Neuro Denies vertigo, Denies dizziness and Denies headache(s) Psych Reports no additional complaints Endo Reports no additional complaints Trent/Lymph Denies easy bleeding and Denies easy bruising Aller/Immun Denies throat swelling Physical exam (Primary Care) Vital Signs: Last Vital Signs Pulse 87 08/04/23 10:24 BP 112/60 08/04/23 10:24 Pulse Ox 98 08/04/23 10:24 Oxygen Delivery Method Room Air 08/04/23 10:24 BMI result Body Mass Index 33.5 Tobacco/Smoking Status: Tobacco use Status Tobacco use date assessed 08/04/23 08/04/23 10:31 Patient Tobacco Use Status Never used Tobacco 08/04/23 10:26 e-Cigarette/Vaping Use Never Used 08/04/23 10:26 PHQ-9: PHQ-9 Score PHQ-9: Total score 11 08/04/23 11:22 Thrive Assessment: Date of Thrive Assessment Date Thrive assessed 08/04/23 08/04/23 11:22 Const Other: Alert oriented x3, no acute distress noted [facility] General nose exam: Normal external nose present Face and sinus: Yes face symmetric Mouth: Normal oral and palatal mucosa present, oropharynx normal and moist mucous membranes Eyes General: appearance normal, both eyes and all related structures Neck Neck: Yes full ROM, Yes no lymphadenopathy and Yes supple Resp Effort & Inspection: normal respiratory effort and able to speak in complete sentences Auscultation: clear to auscultation bilaterally Cardio Rate: regular rate Rhythm: regular rhythm Heart sounds: S1 normal heart sound present and S2 normal heart sound present GI Palpation (GI): Soft to palpation, no guarding and no masses General: Yes no CVA tenderness Back/Spine/Pelvis Back: no CVA tenderness and No back tenderness Skin General skin exam: no rashes or lesions noted Extrem Other: Slight swelling noted on right axillary area, no definite mass palpated Psych Appearance: grossly normal and well kempt Mental Status: mental status grossly normal Speech and movement: Normal speech and movement present Affect: normal affect Attitude: cooperative Thought process: Normal thought process present Thought content: Normal thought content present Assessment and Plan Assessment & Plan (1) Right upper quadrant pain: Code(s): R10.11 - Right upper quadrant pain Plan: Ultrasound abdomen ordered, continue omeprazole (2) Anxiety: Code(s): F41.9 - Anxiety disorder, unspecified Plan: Continue on buspirone 5 mg 1 tab 3 times a day (3) Left thyroid nodule: Comment: 0.6 x 0.4 x 0.6 cm, and a thyroid ultrasound done in 2021, no FNA biopsy or follow-up ultrasound recommended Code(s): E04.1 - Nontoxic single thyroid nodule Plan: Ordered TSH with free T4, and thyroid peroxidase antibodies (4) Right axillary swelling: Code(s): M79.89 - Other specified soft tissue disorders Plan: Likely muscle spasm, prescription sent for cyclobenzaprine, 10 mg, to take bedtime as needed for painful muscle spasms. (5) Dyslipidemia: Code(s): E78.5 - Hyperlipidemia, unspecified Plan: Ordered a repeat fasting lipid panel in 2 months Orders: Orders Lipid Panel 10/02/23 E04.1 - Nontoxic single thyroid nodule, E55.9 - Vitamin D deficiency, unspecified, E78.5 - Hyperlipidemia, unspecified, F41.9 - Anxiety disorder, unspecified Alanine Aminotransferase 10/02/23 E04.1 - Nontoxic single thyroid nodule, E55.9 - Vitamin D deficiency, unspecified, E78.5 - Hyperlipidemia, unspecified, F41.9 - Anxiety disorder, unspecified Aspartate Amino Transferase 10/02/23 E04.1 - Nontoxic single thyroid nodule, E55.9 - Vitamin D deficiency, unspecified, E78.5 - Hyperlipidemia, unspecified, F41.9 - Anxiety disorder, unspecified US abdomen complete 08/04/23 R10.11 - Right upper quadrant pain Thyroid Stimulating Hormone 10/02/23 E04.1 - Nontoxic single thyroid nodule, E55.9 - Vitamin D deficiency, unspecified, E78.5 - Hyperlipidemia, unspecified, F41.9 - Anxiety disorder, unspecified Thyroid Peroxidase Antibodies 10/02/23 E04.1 - Nontoxic single thyroid nodule, E55.9 - Vitamin D deficiency, unspecified, E78.5 - Hyperlipidemia, unspecified, F41.9 - Anxiety disorder, unspecified Free T4 (Free Thyroxine) 10/02/23 E04.1 - Nontoxic single thyroid nodule, E55.9 - Vitamin D deficiency, unspecified, E78.5 - Hyperlipidemia, unspecified, F41.9 - Anxiety disorder, unspecified Vitamin D 25-OH Total 10/02/23 E04.1 - Nontoxic single thyroid nodule, E55.9 - Vitamin D deficiency, unspecified, E78.5 - Hyperlipidemia, unspecified, F41.9 - Anxiety disorder, unspecified Medications: New cyclobenzaprine 10 mg PO BEDTIME PRN 30 tabs 0RF muscle spasm Coding Level of Care Code Est Pt Level 4 (13168) Diagnoses Right upper quadrant pain R10.11 Anxiety F41.9 Left thyroid nodule E04.1 Right axillary swelling M79.89 Dyslipidemia E78.5 Additional Codes ANTWAN-7 Assessment Billing - ANTWAN-7 Assessment Tool: ANTWAN-7 Assessment 99888 ([id number])
== END 2023-08-04 13:24 | disposition home or self-care (01) ==
PROVIDERS: PCP Internal Medicine; Visit Provider Internal Medicine
DX: R10.11 Right upper quadrant pain (principal); F41.9 Anxiety disorder, unspecified; E04.1 Nontoxic single thyroid nodule; M79.89 Other specified soft tissue disorders; E78.5 Hyperlipidemia, unspecified
CPT/HCPCS: 99214

== ENCOUNTER 2023-08-26 08:55 | Outpatient (REF) | payer OTHER, SELFPAY ==
--- NOTE | ~2023-08-26 | US_ITS ---
EXAMINATION: US ABDOMEN COMPLETE CLINICAL INFORMATION: Right upper quadrant pain. COMPARISON: Ultrasound abdomen complete 01/19/2022. TECHNIQUE: Real-time imaging of the abdominal viscera. Limited visualization due to bowel gas. FINDINGS: PANCREAS: Limited visualization of pancreatic tail and head. Imaged portion of pancreatic body is unremarkable. ABDOMINAL AORTA: Unremarkable. INFERIOR VENA CAVA: Visualized portions are normal. LIVER: The liver is normal in size. The liver contour is normal. Parenchymal echogenicity is normal. Limited visualization due to bowel gas. GALLBLADDER: No gallstones. No gallbladder wall thickening. COMMON BILE DUCT: Normal in caliber measuring 0.26 cm in diameter. RIGHT KIDNEY: No hydronephrosis. No renal calculi. Limited visualization. The kidney measures 11.2 cm in maximum dimension. LEFT KIDNEY: No hydronephrosis. No renal calculi. Limited visualization. The kidney measures 10.7 cm in maximum dimension. SPLEEN: Normal. The spleen measures 11.8 cm in maximum dimension. FREE FLUID: None. US/US abdomen complete IMPRESSION: Unremarkable exam. Visualization is limited due to bowel gas.
== END 2023-08-26 08:56 | disposition home or self-care (01) ==
LOC: HO.HMGCX 08:55
PROVIDERS: PCP Internal Medicine; Visit Provider Internal Medicine
DX: R10.11 Right upper quadrant pain (principal)
CPT/HCPCS: 76700

== ENCOUNTER 2023-11-14 08:11 | Day surgery (SDC) | payer OTHER, SELFPAY ==
--- NOTE | 2023-11-11 09:04 | HO.ANESPROP2 ---
HPI - Anesthesia Eval Consult details Narrative: 43yo F for Upper Endoscopy PMFSH Active Problems Active Problems: All Active Problems Left thyroid nodule (Acute) Dyslipidemia (Acute) Anxiety (Acute) IBS (irritable bowel syndrome) (Acute) Vitamin D deficiency (Acute) Lumbago with sciatica, right side (Acute) Seasonal allergic rhinitis (Acute) Mild intermittent asthma (Acute) Irritable bowel syndrome with predominant constipation (Acute) Other lactose intolerance (Acute) Diverticulosis (Acute) Gastric ulcer (Acute) Past Medical History Medical History Left thyroid nodule Dyslipidemia Dyslipidemia (high LDL; low HDL) Vitamin D deficiency Lumbago with sciatica, right side Depression with anxiety Mild intermittent asthma COVID-19 virus infection Hemorrhoids Gastric ulcer Seasonal allergic rhinitis Menorrhagia IBS (irritable bowel syndrome) Family History Family History Father No problems noted. Paternal Grandmother No problems noted. Paternal Uncle Mental health disorder Paternal Grandmother Mental health disorder Mother Mental health disorder Surgical History Surgical History History of esophagogastroduodenoscopy (EGD) H/O colonoscopy Hx of tubal ligation Social History Social History Housing: Apartment Alcohol intake: current Alcohol intake frequency: does not drink Patient Tobacco Use Status: Never used Tobacco e-Cigarette/Vaping Use: Never Used Second Hand Smoke Exposure: No service: No Current occupational status: employed Cognitive needs: No Hearing needs: No Vision needs: Yes Meds Allergies Allergy/AdvReac Type Severity Reaction Status Date / Time pollen Allergy Mild Itchy Eyes Uncoded 08/07/23 21:09 Assessment and Plan Assessment Anesthesia Assessment: Chart Reviewed
[2023-11-14] VITALS (11 sets, daily range): BP systolic 93–132; BP diastolic 50–88; PULSE 72–93; RESP 16–18; TEMP 36.3–36.9; O2SAT 94–97; BMI 34.0
[2023-11-14] MEDS: Lactated Ringers 1,000 ML 100 ML IVCONT (08:39)
--- NOTE | 2023-11-14 08:40 | MHC.SHP ---
Pre-Procedural Eval Section A - 24 Hr Update-Section A only Date of Service: 11/14/23 The patient is an INPATIENT: No The patient has been examined within 24 hours of the surgical procedure. The History & Physical has been completed within 30 days and I have reviewed it.: No Section B - Complete if H&P > 30 days Chief Complaint: FU of gastric ulcer Relevant Family History (Specify if Yes): No Relevant Social History: None Present Medications: see Short Stay Collaborative assessment Medical History: Significant History (Depression with anxiety Dyslipidemia Dyslipidemia (high LDL; low HDL) Gastric ulcer Hemorrhoids IBS (irritable bowel syndrome) Lumbago with sciatica, right side Menorrhagia Mild intermittent asthma Multinodular non-toxic goiter Seasonal allergic rhinitis Vitamin D deficiency) History of Previous Operations: Relevant previous surgery/procedure and date(s) (H/O colonoscopy History of esophagogastroduodenoscopy (EGD) Hx of tubal ligation) Allergies: Allergies Allergy/AdvReac Type Severity Reaction Status Date / Time pollen Allergy Mild Itchy Eyes Uncoded 08/07/23 21:09 Review of Systems Sugical H&P ROS: Negative: Constitution, Cardiovascular, Respiratory and Gastrointestinal Exam Surgical H&P Exam: Normal: Heart and Normal: Abdomen Plan Diagnosis/Plan: Unchanged I have reviewed the history and physical and performed a pertinent physical examination on my patient. No changes have occurred unless specified. Time Spent With Patient Time: Total time managing care of this patient today ____ minutes.
--- NOTE | 2023-11-14 10:05 | W.PM.OPN ---
Operative Note Operative Note Date of Service: 11/14/23 Narrative: FLEXIBLE TRANSORAL UPPER GASTROINTESTINAL ENDOSCOPY WITH BIOPSIES Pre-op diagnosis: GERD, epigastric pain, Hx of gastric ulcer Post-op diagnosis: GERD, Gastritis, Endoscopist:? David Grace MD Anesthesia:?MAC UPPER ENDOSCOPY Consent: Indications for the procedure and potential complications of bleeding, perforation, reaction to medications and missed diagnosis were discussed with the patient and informed consent was obtained. Instrument: Olympus GIF H 190 mid size upper endoscope Monitoring: Vital signs and clinical assessment, continuous EKG monitoring, Pulse oximetry, Carbon Dioxide monitoring and blood pressure monitoring were done throughout the procedure. Procedure: The patient was placed in the left lateral decubitis position and pre-procedure medications were administered and a bite block was placed. The endoscope was inserted into the mouth and advanced under direct vision to the third part of duodenum. A careful inspection was made as the upper endoscope was withdrawn including a retroflexed examination of the proximal stomach; Findings and interventions are described below. Findings: Larynx: Normal Esophagus: GE junction at 35 cms. No esophagitis or Blackwood's. Biopsies were obtained from distal esophagus to check for esophagitis Stomach: Minimal antral erythema - biopsies were obtained from the antrum. Ulcer seen on previous EGD healed completely Grade 2 flap valve on retroflexed examination of the cardia. Duodenum: Normal bulb and descending duodenum Intervention: Biopsies as noted above Impression and Post Procedure Diagnosis: Endoscopy Findings: ESOPHAGUS: Normal - biopsies were obtained from distal esophagus to check for esophagitis STOMACH: Ulcer seen on past EGD has healed Plan: Pt to schedule a FU appointment with COOKIE Miller, . Relevant handouts were given to the patient in the discharge area. If pt continues to have symptoms, consider obtaining a barium swallow to assess severity of GERD.
--- NOTE | 2023-11-14 10:33 | HO.ANESPROP2 ---
[facility] Active Problems Active Problems: All Active Problems Left thyroid nodule (Acute) Dyslipidemia (Acute) Anxiety (Acute) IBS (irritable bowel syndrome) (Acute) Vitamin D deficiency (Acute) Lumbago with sciatica, right side (Acute) Seasonal allergic rhinitis (Acute) Mild intermittent asthma (Acute) Irritable bowel syndrome with predominant constipation (Acute) Other lactose intolerance (Acute) Diverticulosis (Acute) Gastric ulcer (Acute) Past Medical History Medical History Left thyroid nodule Dyslipidemia Dyslipidemia (high LDL; low HDL) Vitamin D deficiency Lumbago with sciatica, right side Depression with anxiety Mild intermittent asthma COVID-19 virus infection Hemorrhoids Gastric ulcer Seasonal allergic rhinitis Menorrhagia IBS (irritable bowel syndrome) Functional capacity: independent ambulation Family History Family History Father No problems noted. Paternal Grandmother No problems noted. Paternal Uncle Mental health disorder Paternal Grandmother Mental health disorder Mother Mental health disorder Family history of problems with anesthesia: No Surgical History Surgical History History of esophagogastroduodenoscopy (EGD) H/O colonoscopy Hx of tubal ligation History of Problems with Anesthesia: No Social History Social History Housing: Apartment Alcohol intake: current Alcohol intake frequency: does not drink Patient Tobacco Use Status: Never used Tobacco e-Cigarette/Vaping Use: Never Used Second Hand Smoke Exposure: No Are you DNR?: No Advance Directives: No Advance Directives Information Provided: Yes Patient : No FDLMP: now service: No Current occupational status: employed Cognitive needs: No Hearing needs: No Vision needs: Yes Meds Allergies Allergy/AdvReac Type Severity Reaction Status Date / Time pollen Allergy Mild Itchy Eyes Uncoded 08/07/23 21:09 Active Medications: Current Medications Albuterol Sulfate (Albuterol Sulfate (0.083%) 2.5 Mg/3 Ml Vial.Neb) 2.5 mg INHALE ONCE PRN PRN Reason: Shortness of Breath/Wheezing Lactated Ringer's (Lr) 1,000 mls @ 100 mls/hr IVCONT .Q10H LISSET Last Admin: 11/14/23 08:39 Dose: 100 mls/hr Exam Height,Weight and Vital Signs: Height 5 ft 4 in Weight 89.947 kg Last Vital Signs Temp 97.9 F 11/14/23 10:24 Pulse 84 11/14/23 10:24 Resp 18 11/14/23 10:24 BP 119/78 11/14/23 10:24 Pulse Ox 96 11/14/23 10:24 O2 Del Method Room Air 11/14/23 10:24 O2 Flow Rate 2 11/14/23 10:09 Airway Mallampati Class: II TM Dist: >3cm Neck ROM: Full Heart: RRR Lungs: CTA Assessment and Plan Assessment Anesthesia Assessment: Anesthesia Plan Discussed Final Anesthetic Review Family History of Problems with Anesthesia: No History of Problems with Anesthesia: No NPO: Yes ASA Class: III Final Preanesthetic Review: Meds/Allgs Chart Reviewed, Consent Obtained/Reviewed and Anes Risks/Benef Reviewed Patient Risk: Low Procedure Risk: Low Anesthetic Plan Anesthetic Plan: MAC: Disposition: Standard PACU
--- NOTE | 2023-11-14 10:36 | HO.POSTANES ---
Post Anesthesia Evaluation Post Anesthesia Evaluation Date of Service: 11/14/23 Vital Signs: Vital Signs Temp Pulse Resp BP Pulse Ox O2 Del Method O2 Flow Rate 11/14/23 10:24 97.9 F 84 18 119/78 96 Room Air 11/14/23 10:09 97.3 F 93 16 93/50 L 94 Nasal Cannula 2 11/14/23 08:14 98.4 F 84 18 113/87 97 Room Air Anesthesia: Monitored Mental Status: Awake Pain Control: Satisfactory Nausea/Vomiting: None Hydration: Adequate Anesthesia-Related Issues: No Anes. Related Issues
[2023-11-14 12:34] LABS: Glucose, Whole Blood 88 mg/dL (60-115)
== END 2023-11-14 13:00 | disposition home or self-care (01) ==
PROVIDERS: PCP Internal Medicine; Visit Provider Internal Medicine Gastroenterology
PROC: 0DJ08ZZ Inspection of Upper Intestinal Tract, Via Natural or Artificial Opening Endoscopic (ICD-10-PCS; CPT 43235; principal; 2023-11-14 09:20)
DX: K21.9 Gastro-esophageal reflux disease without esophagitis (principal); K29.60 Other gastritis without bleeding; E78.5 Hyperlipidemia, unspecified; E04.1 Nontoxic single thyroid nodule; K58.9 Irritable bowel syndrome, unspecified; E55.9 Vitamin D deficiency, unspecified; J45.20 Mild intermittent asthma, uncomplicated; E73.8 Other lactose intolerance; Z79.899 Other long term (current) drug therapy
CPT/HCPCS: 43239; 82947; 88305; 88313; 88342; J2704

== ENCOUNTER → 2023-11-14 08:11 | Outpatient (BNV) | payer OTHER, SELFPAY | PROVIDERS: PCP Internal Medicine; Visit Provider Internal Medicine Gastroenterology | DX: K21.9 Gastro-esophageal reflux disease without esophagitis (principal); K29.70 Gastritis, unspecified, without bleeding | CPT/HCPCS: 43239 ==

== ENCOUNTER 2023-12-29 09:23 | Outpatient (AMB) | payer OTHER, SELFPAY ==
--- NOTE | 2023-12-29 09:25 | MHC.OFFWIV ---
Intake Vital Signs 12/29/23 09:34 Weight 192 lb 6 oz BP 124/80 Blood Pressure Location Rt brachial Position Sitting Pulse 113 H Pulse Source Pulse Oximeter Temp 98.7 F Temp Source Oral Pulse Oximetry (%) 98 Oxygen Delivery Method Room Air Intake Visit Reasons: EP- Positive Covid- [phone] Intake Note: Pt is here today tested positive for covid Patient Tobacco Use Status: Never used Tobacco Allergies pollen Allergy (Mild, Uncoded 12/29/23 09:26) Itchy Eyes Do you need a note to return to daycare/school/sports/work: Yes HPI EP- Positive Covid- [phone] HPI Details This note is constructed using voice recognition software. While every effort has been made to ensure accuracy, anode machine operator errors may have been included. The patient is a 43 year old female who presents to the clinic today with complaints of cough, congestion, ear pain following COVID positive test yesterday and symptom onset 6 days ago. She had an asthmatic and uses an albuterol inhaler, but noticed this morning that her albuterol inhaler was and would like a refill of this. She denies any current fever or any in greater than 24 hours. She denies dyspnea at rest but is having some dyspnea when she is coughing. [facility] Medical History Left thyroid nodule Dyslipidemia Dyslipidemia (high LDL; low HDL) Vitamin D deficiency Lumbago with sciatica, right side Depression with anxiety Mild intermittent asthma COVID-19 virus infection Hemorrhoids Gastric ulcer Seasonal allergic rhinitis Menorrhagia IBS (irritable bowel syndrome) Surgical History History of esophagogastroduodenoscopy (EGD) H/O colonoscopy Hx of tubal ligation Family History Father No problems noted. Paternal Grandmother No problems noted. Paternal Uncle Mental health disorder Paternal Grandmother Mental health disorder Mother Mental health disorder Social History Housing: Apartment Alcohol intake: current Alcohol intake frequency: does not drink Patient Tobacco Use Status: Never used Tobacco e-Cigarette/Vaping Use: Never Used Second Hand Smoke Exposure: No service: No Current occupational status: employed Cognitive needs: No Hearing needs: No Vision needs: Yes Review of Systems Const All systems reviewed & are unremarkable except as noted in HPI and below Physical Exam Vital Signs: Last Vital Signs Pulse 113 H 12/29/23 09:34 BP 124/80 12/29/23 09:34 Pulse Ox 98 12/29/23 09:34 Oxygen Delivery Method Room Air 12/29/23 09:34 Const General: cooperative, healthy appearing, comfortable and no acute distress Orientation/consciousness: patient oriented x3 HEENT Head: Yes normal to inspection, Yes No palpable skull fracture present and Yes normocephalic Ears: hearing grossly normal bilaterally, external ears normal, EAC's normal, mastoids normal (no TTP) bilaterally and TM abnormal bulging on the right and erythematous on the right General nose exam: Normal external nose present Face and sinus: Yes normal facial exam Mouth: Normal oral and palatal mucosa present Teeth and gingiva: dentition normal Throat: Yes posterior oropharynx normal and Yes postnasal drainage Eyes General: appearance normal, both eyes and all related structures Neck Neck: Yes normal visual inspection, Yes full ROM, Yes no lymphadenopathy, Yes no meningeal signs, Yes trachea midline and Yes supple Resp Effort & Inspection: normal respiratory effort, able to speak in complete sentences and Actively coughing Auscultation: clear to auscultation bilaterally (But tight sounding) Skin General skin exam: no rashes or lesions noted Neuro General: patient oriented x3 and no meningeal signs Assessment & Plan Assessment & Plan (1) Mild intermittent asthma: Code(s): J45.20 - Mild intermittent asthma, uncomplicated Qualifiers: Asthma complication type: uncomplicated Qualified Code(s): J45.20 - Mild intermittent asthma, uncomplicated Plan: Refill provided today for albuterol inhaler. Reviewed symptomatic [id number] measures to assist with URI symptoms. Advised follow up with worsening or failure to resolve. Steroid burst provided for symptomatic management. (2) Otitis media: Code(s): H66.90 - Otitis media, unspecified, unspecified ear Qualifiers: Otitis media type: suppurative Chronicity: acute Laterality: right Recurrence: not specified as recurrent Spontaneous tympanic membrane rupture: without spontaneous rupture Qualified Code(s): H66.001 - Acute suppurative otitis media without spontaneous rupture of ear drum, right ear Plan: Antimicrobial therapy sent to requested pharmacy. Advised NSAIDs for pain management. Advised patient to take medication until complete. Advised follow up with worsening or failure to resolve. (3) Coronavirus infection: Code(s): B34.2 - Coronavirus infection, unspecified Plan: Reviewed current CDC guidelines for masking, quarantine, return to work. Given the patient is having some increased distress related to coronavirus advised to remain out of work today. She has been more than 24 hours fever free, and may return to work tomorrow. Letter provided for work. Plan See above for full details and plan. Medications: New prednisone 40 mg (2 x 20 mg) PO DAILY 3 days 6 tabs 0RF amoxicillin-pot clavulanate 875-125 mg 1 tab PO BID 7 days 14 tabs 0RF Refilled albuterol sulfate 90 mcg/actuation 2 puffs inhalation QID PRN 8.5 grams 0RF shortness of breath or wheezing Coding Level of Care Code Est Pt Level 3 (82832) Diagnoses Mild intermittent asthma without complication J45.20 Asthma complication type: uncomplicated Acute suppurative otitis media of right ear without spontaneous rupture of tympanic membrane, recurrence not specified H66.001 Otitis media type: suppurative Chronicity: acute Laterality: right Recurrence: not specified as recurrent Spontaneous tympanic membrane rupture: without spontaneous rupture Coronavirus infection B34.2
[2023-12-29 09:34] VITALS: BP 124/80; PULSE 113; TEMP 37.1; O2SAT 98
== END 2023-12-29 09:56 | disposition home or self-care (01) ==
PROVIDERS: PCP Internal Medicine; Visit Provider Registered Nurse
DX: J45.20 Mild intermittent asthma, uncomplicated (principal); H66.001 Acute suppurative otitis media without spontaneous rupture of ear drum, right ear; B34.2 Coronavirus infection, unspecified
CPT/HCPCS: 99213

== ENCOUNTER 2024-05-03 09:18 | Outpatient (AMB) | payer OTHER, SELFPAY ==
--- NOTE | 2024-05-03 09:27 | A.OFFVIS_ITS ---
Vital Signs 05/03/24 09:29 Height 5 ft 4 in Weight 187 lb BMI 32.1 BP 112/62 Blood Pressure Location Lt brachial Position Sitting Intake Visit Reasons: IBS/post EGD Intake Note: Patient 5 month follow up for IBS/post EGD Patient cc: abdominal pain/bloating, GERD, with a lot of gasses, denies any other GI issues. Senior Account Executive Required: No Accompanied by: Self / Same As Patient Allergies prednisone Adverse Reaction (Intermediate, Verified 10/11/24 09:23) vaginal bleeding pollen Allergy (Mild, Uncoded 08/08/24 08:55) Itchy Eyes Medication List - Last Reconciled 05/03/24 by David Grace MD albuterol sulfate 90 mcg/actuation 2 puffs inhalation QID PRN albuterol sulfate 0.63 mg (3 mL) inhalation QID PRN 30 days buspirone 5 mg PO TID cyclobenzaprine 10 mg PO BEDTIME PRN dicyclomine 10 mg PO TID PRN fluticasone propionate 50 mcg/actuation 1 spray intranasal DAILY norethindrone acetate 5 mg PO DAILY HPI HPI IBS/post EGD: Details: GI clinic visit for this 43 YF for FU of GERD, epigastric pain and history of gastric ulcer. Patient had an EGD and colonoscopy in October,. TODAY'S VISIT: Patient cc: abdominal pain/bloating, GERD, with a lot of gasses, denies any other GI issues. Pt complains of post prandial chest pain - can feel the food in her throat Symptoms are related to diet. Can eat a salad and get the worst stomach pain and a lot of gas Last night she had pizza with Marinara sauce and had nausea Denies recent change in bowel habits, constipation, diarrhea, black stools or rectal bleeding. Has a BM daily. Sometimes can have diarrhea related to her diet. Avoids lactose and gluten (gluten causes bloating) Denies smoking and drinks socially Patient denies major cardiac or pulmonary problems, and admits to loud snoring due to sinus issues Denies problems with anesthesia in the past. Denies being on chronic anticoagulation. Patient denies known family history of colon polyps, colon cancer or other GI malignancies. Maternal GF had prostate cancer LABS IN [facility] : Reviewed IMAGING STUDIES: ENDOSCOPIC STUDIES: 10/2023 EGD AND COLONOSCOPY SHOWED: ESOPHAGUS: Normal - biopsies were obtained from distal esophagus to check for esophagitis STOMACH: Ulcer seen on past EGD has healed Plan: If pt continues to have symptoms, consider obtaining a barium swallow to assess severity of GERD BIOPSIES SHOWED: A. Stomach, antrum, biopsy: Antral-type mucosa with mild chronic inactive inflammation; no Helicobacter organisms seen. B. Esophagus, distal, biopsy: Squamous epithelium within normal limits; no inflammation seen 01/2020 EGD AND COLON SHOWED: Endoscopy Findings: STOMACH: A 1.5 to 2 cms chronic appearing ulcer in the antrum - biopsied. Mild gastric erythema. Biopsies were obtained to check for H Pylori. Grade 2 flap valve on retroflexed examination of the cardia (pt admits to taking Alleve 2 tab 3 times a week for neck pains). DUODENUM: Normal - biopsied to check for celiac sprue. Colonoscopy Findings: No polyps were detected. Random biopsies were obtained from the TI, right and left colon and rectum. Mild diverticulosis seen in the sigmoid colon Moderate hemorrhoids in hypertrophied anal papillae on retroflexed exam. Plan: Start Omeprazole 20 mg daily for PUD and hold NSAID use. Repeat EGD in 12 weeks to confirm gastric ulcer has healed. Repeat Colonoscopy in 10 years if Colon biopsies are normal. BIOPSIES SHOWED: A. Small bowel, biopsy: Duodenal mucosa within normal limits. B. Stomach, antrum, biopsy: Antral-type and oxyntic mucosa with mild chronic inactive inflammation; no Helicobacter organisms seen. C. Stomach, ulcer, biopsy: Ulcerative gastritis; no Helicobacter organisms seen; no atypia or malignancy identified. D. Terminal ileum, biopsy: Terminal ileal mucosa within normal limits. E. Colon, right, biopsy: Colonic mucosa within normal limits. F. Colon, left, biopsy: Colonic mucosa within normal limits. G. Rectum, biopsy: Rectal mucosa within normal limits PAST GI HISTORY BY REVIEW OF MEDICAL RECORDS: 09/2022 patient was seen by COOKIE Miller: She was last seen about 1 year ago-she has not been taking PPI, many issues insurance related She does have acid reflux, intermittent epigastric pain after eating. Symptoms have been ongoing however due to insurance she has not follow through. She has been taking dicyclomine for IBS She has not had any nausea or vomiting no hematemesis, hematochezia fever chills Review procedure report and pathology, as well as recommendation from [facility] Medical History (Updated 12/14/24 @ 17:27 by David Grace MD) Adenomyosis of the uterus Irregular menstrual bleeding Left thyroid nodule Dyslipidemia Dyslipidemia (high LDL; low HDL) Vitamin D deficiency Lumbago with sciatica, right side Depression with anxiety Mild intermittent asthma COVID-19 virus infection Hemorrhoids Gastric ulcer Seasonal allergic rhinitis Menorrhagia IBS (irritable bowel syndrome) Surgical History History of esophagogastroduodenoscopy (EGD) H/O colonoscopy Hx of tubal ligation Family History Father No problems noted. Paternal Grandmother No problems noted. Paternal Uncle Mental health disorder Paternal Grandmother Mental health disorder Mother Mental health disorder Social History Housing: Apartment Alcohol intake: current Alcohol intake frequency: does not drink Patient Tobacco Use Status: Never used Tobacco e-Cigarette/Vaping Use: Never Used Second Hand Smoke Exposure: No service: No Current occupational status: employed Cognitive needs: No Hearing needs: No Vision needs: Yes Review of Systems Const All systems reviewed & are unremarkable except as noted in HPI and below Physical Exam Vital Signs: Last Vital Signs BP 112/62 05/03/24 09:29 BMI result Body Mass Index 32.1 Const General: healthy appearing and no acute distress Nutritional Appearance: obese Orientation/consciousness: patient oriented x3 HEENT Head: Yes normal to inspection Ears: hearing grossly normal bilaterally Eyes Sclerae: sclerae normal Pupils: Equal, round and reactive pupils present Neck Neck: Yes normal visual inspection Chest Chest palpation & inspection: normal inspection of the chest Resp Effort & Inspection: normal respiratory effort Auscultation: clear to auscultation bilaterally Cardio Palpation: normal PMI Rate: regular rate Rhythm: regular rhythm Heart sounds: S1 normal heart sound present, S2 normal heart sound present and no murmurs GI Palpation (GI): Soft to palpation, nontender and No hepatosplenomegaly present Auscultation: normal bowel sounds Rectal Exam - Female: deferred Skin General skin exam: no rashes or lesions noted Neuro General: patient oriented x3, gait normal and moves all extremities Cranial nerves: Yes Equal, round and reactive pupils present Psych Appearance: grossly normal Mental Status: mental status grossly normal Assessment & Plan Assessment & Plan (1) GERD (gastroesophageal reflux disease): Code(s): K21.9 - Gastro-esophageal reflux disease without esophagitis Category: Medical (2) Dysphagia, pharyngoesophageal phase: Code(s): R13.14 - Dysphagia, pharyngoesophageal phase Category: Medical (3) IBS (irritable bowel syndrome): Comment: extremely anxious regards to insurance coverage, many social stressors, upset about weight gain Continue FODMAP, identify triggers, dicyclomine Code(s): K58.9 - Irritable bowel syndrome, unspecified Category: Medical (4) Diverticulosis: Comment: maintain high-fiber diet , discuss diverticulosis/diverticulitis plan of care Code(s): K57.90 - Diverticulosis of intestine, part unspecified, without perforation or abscess without bleeding Category: Medical (5) Other lactose intolerance: Code(s): E73.8 - Other lactose intolerance Category: Medical Plan 44 YF, with history of dyslipidemia, adenomyosis of the uterus, with irregular menstrual bleeding, history of left thyroid nodule with ultrasound done in 2021 showing a 0.6 x 0.4 x 0.6 cm nodule, with no FNA biopsy indicated, has mild intermittent asthma and history of gastric ulcer and IBS, 05/03/24 Pt complains of post prandial chest pain - can feel the food in her throat Symptoms are related to diet. Can eat a salad and get the worst stomach pain and a lot of gas Last night she had pizza with Marinara sauce and had nausea Denies recent change in bowel habits, constipation, diarrhea, black stools or rectal bleeding. Has a BM daily. Sometimes can have diarrhea related to her diet. Pt advised to schedule a barium swallow and continue Omeprazole 20 mg daily FU in 4 months 06/2024 Barium swallow was normal Orders: Orders FL barium swallow 05/03/24 K21.9 - Gastro-esophageal reflux disease without esophagitis, R13.14 - Dysphagia, pharyngoesophageal phase Medications: New omeprazole 20 mg PO DAILY 90 caps 1RF 90 days K21.9 - Gastro-esophageal reflux disease without esophagitis Coding Level of Care Code Est Pt Level 4 (87744) Diagnoses GERD (gastroesophageal reflux disease) K21.9 Dysphagia, pharyngoesophageal phase R13.14 IBS (irritable bowel syndrome) K58.9 Diverticulosis K57.90 Other lactose intolerance E73.8 Time Spent (min) 20
[2024-05-03 09:29] VITALS: BP 112/62; BMI 32.1
== END 2024-05-03 10:18 | disposition home or self-care (01) ==
PROVIDERS: PCP Internal Medicine; Visit Provider Internal Medicine Gastroenterology
DX: K21.9 Gastro-esophageal reflux disease without esophagitis (principal); R13.14 Dysphagia, pharyngoesophageal phase; K58.9 Irritable bowel syndrome, unspecified; K57.90 Diverticulosis of intestine, part unspecified, without perforation or abscess without bleeding; E73.8 Other lactose intolerance
CPT/HCPCS: 99499

== ENCOUNTER 2024-07-20 09:21 | Outpatient (REF) | payer OTHER, SELFPAY ==
--- NOTE | ~2024-07-20 | FL_ITS ---
EXAMINATION: XR BARIUM SWALLOW CLINICAL INFORMATION: Gastroesophageal reflux disease without esophagitis. COMPARISON: None available. TECHNIQUE: Barium swallow was performed in upright view in different positions following oral administration of thick barium and barium coated solids crackers. Thin barium was orally administered in prone lying position. FINDINGS: Oral following oral administration of thick barium and barium coated solids and cracker is upright view there is normal propagation bolus from the oral cavity through the pharynx, esophagus without obstruction, narrowing or stricture. No laryngeal penetration or aspiration seen. No retention in valleculae or piriform sinuses. No extrinsic esophageal compression seen. On placing patient in prone lying and oral administration of thick barium there is good distention of the esophagus without any intraluminal narrowing or obstruction. No gastroesophageal reflux or hiatal hernia seen. FLUOROSCOPY TIME: 1 minute 46 seconds DOSE AREA PRODUCT: 1231 uGy-m2 (microgray-meter squared) FL/FL barium swallow IMPRESSION: Unremarkable barium swallow examination. Electronically signed by: Tyson Turpin MD 07/20/2024 03:32 PM EDT
== END 2024-07-20 09:22 | disposition home or self-care (01) ==
LOC: HO.XRAY 09:21
PROVIDERS: PCP Internal Medicine; Visit Provider Internal Medicine Gastroenterology
DX: K21.9 Gastro-esophageal reflux disease without esophagitis (principal); R13.14 Dysphagia, pharyngoesophageal phase
CPT/HCPCS: 74220

== ENCOUNTER → 2024-07-20 09:23 | Outpatient (BNV) | payer OTHER, SELFPAY | PROVIDERS: PCP Internal Medicine; Visit Provider Radiology Diagnostic Radiology | DX: K21.9 Gastro-esophageal reflux disease without esophagitis (principal) | CPT/HCPCS: 74220 ==

== ENCOUNTER 2024-07-25 | Outpatient (REF) | payer OTHER, SELFPAY ==
--- OUTSIDE RECORDS SUMMARY | 2024-10-25 17:35 | XMS_ITS | Clinical Summary ---
Author Organization [facility] [address] [place] [address] [place] [phone] Phone Care Team Providers Care Hair Specialist Name Role Phone Latosha Cherry MD Primary [...] EDT Office Visit Obstetrics and Gynecology - [address] [phone] Natalee Neumann MD IUD (intrauterine device) in place (Primary Dx); Prolonged menstruation 09/27/2024 12:12 AM EDT - 09/27/2024 3:05 AM EDT Emergency [facility] Emergency [address] [place] [address] Ioana Goodman MD Costochondral chest pain (Primary Dx); Cervical radiculopathy Discharge Disposition: Home or Self Care 08/23/2024 8:45 AM EDT Office Visit Obstetrics and Gynecology - [address] [phone] Natalee Neumann MD IUD (intrauterine device) in place (Primary Dx); Lesion of endometrium; Prolonged menstruation from Last 3 Months Surgical History Surgery Date Site/Laterality Comments OTHER SURGICAL HISTORY PROCEDURE: [place] LIG/TRNSXJ FLP TUBE ABDL/VAG APPR UNI/BI Medical History Medical History Date Comments IBS (irritable bowel syndrome) D X:IBS (irritable bowel syndrome) Hypercholesteremia DX:Hyperchole steremia Family History Medical History Relation Name Comments Breast cancer Aunt 1 maternal from [facility] in her 40s Breast cancer Aunt 2 [...] for your loved ones. For example, child care assistant or elderly care for an older adult? [...] 98 10/04/2024 8:50 AM EDT Temperature 36.6 C (97.8 F) 09/26/2024 11:07 PM EDT Respiratory Rate 18 09/26/2024 11:0 [...] 08/23/2024 9:12 AM EDT Lesion of endometrium HM HPV Routine 12/20/2023 from Last 3 [...] Signed Date: 09/27/2024 08:13 ET Workstation ID: [id number] Transcribed By: Self Edit Transcribed Date: 09/27/2024 08:12 ET Narrative 09/27/2024 8:13 AM EDT PROCEDURE: PA and lateral radiographs of the chest. HISTORY: chest pain. COMPARISON: 04/08/2024. FINDINGS: Lungs, pleural spaces, pulmonary vasculature, and cardiomediastinal contours are normal. Mild leftward curvature and mild degenerative changes of [...] Signed Date: 09/27/2024 08:13 ET Workstation ID: [id number] Transcribed By: Self Edit Transcribed Date: 09/27/2024 08:12 ET Luis Graves MD IMG XR PROCEDURES Final Result * POC , urine manually resulted (09/27/2024 1:53 AM EDT) [facility] HCG, Ur POC Negative Negative POC hCG Int QC Pass? Yes Yes Urine Urine specimen obtained by clean catch procedure / Unknown 09/27/2024 1:53 AM EDT Ioana Goodman MD POINT OF CARE TEST ENTER /EDIT ORDERABLES Final Result * Troponin I high sensitivity (09/27/2024 12:24 AM EDT) [facility] High Sensitivity Troponin I 3 <=54 ng/L LAB CHEMISTRY METHOD 09/27/2024 1:[address] [facility] Blood Venous blood specimen / Unknown Venipuncture / Unknown 09/27/2024 12:24 AM EDT 09/27/2024 12:[address] [facility] - 09/27/2024 1:22 AM EDT High levels of biotin in samples may falsely decrease hsTroponin values. Use caution when interpreting hsTroponin results in patients taking biotin who exhibit renal impairment (eGFR <60) or in patients taking more than 20 mg/day of biotin. Luis Graves MD LAB BLOOD ORDERABLES Final Resu lt [facility] [address] [place] [address], * (ABNORMAL) CBC auto differential (09/27/2024 12:24 AM EDT) [facility] WBC 8.4 4.8 - 10.8 K/[facility] LAB HEMETOLOGY METHOD 09/27/2024 12:[address] [facility] RBC 4.30 3.80 - 4.80 M/[facility] LAB HEMETOLOGY METHOD 09/27/2024 12:[address] [facility] Hemoglobin 10.0(L) 11.5 - 16.0 g/dL LAB HEMETOLOGY METHOD 09/27/2024 12:57 AM [facility] Hematocrit 33.1(L) 35.0 - 47.0 % LAB HEMETOLOGY METHOD 09/27/2024 12:57 AM [facility] MCV 77.7(L) 79.0 - 98.0 FL LAB HEMETOLOGY METHOD 09/27/2024 12:57 AM [facility] MCH 23.5(L) 27.0 - 32.0 pcg LAB HEMETOLOGY METHOD 09/27/2024 12:57 AM [facility] MCHC 30.2(L) 32.0 - 37.0 g/dL LAB HEMETOLOGY METHOD 09/27/2024 12:57 AM [facility] RDW 16.2(H) 11.0 - 15.0 % LAB HEMETOLOGY METHOD 09/27/2024 12:57 AM [facility] Platelets 261 130 - 400 K/mcL LAB HEMETOLOGY METHOD 09/27/2024 12:57 AM [facility] MPV 11.2(H) 7.0 - 11.0 FL LAB HEMETOLOGY METHOD 09/27/2024 12:57 AM [facility] NRBC 0.0 <1.0 % LAB HEMETOLOGY METHOD 09/27/2024 12:57 AM [facility] NRBC Absolute 0.00 <0.10 K/mcL LAB HEMETOLOGY METHOD 09/27/2024 12:57 AM [facility] Neutrophils Relative 71.4 % LAB HEMETOLOGY METHOD 09/27/2024 12:57 AM [facility] Lymphocytes Relative 20.2 % LAB HEMETOLOGY METHOD 09/27/2024 12:57 AM [facility] Monocytes Relative 6.4 % LAB HEMETOLOGY METHOD 09/27/2024 12:[address] [facility] Eosinophils Relative 0.8 % LAB HEMETOLOGY METHOD 09/27/2024 12:[address] [facility] Basophils Relative 1.0 % LAB HEMETOLOGY METHOD 09/27/2024 12:[address] [facility] Immature Granulocytes Relative 0.2 % LAB HEMETOLOGY METHOD 09/27/2024 12:[address] [facility] Neutrophils Absolute 5.98 1.50 - 7.00 K/mcL LAB HEMETOLOGY METHOD 09/27/2024 12:[address] [facility] Lymphocytes Absolute 1.69 1.00 - 5.00 K/mcL LAB HEMETOLOGY METHOD 09/27/2024 12:[address] [facility] Monocytes Absolute 0.54 0.20 - 1.00 K/mcL LAB HEMETOLOGY METHOD 09/27/2024 12:[address] [facility] Eosinophils Absolute 0.07 0.00 - 0.50 K/mcL LAB HEMETOLOGY METHOD 09/27/2024 12:[address] [facility] Basophils Absolute 0.08 0.00 - 0.20 K/mcL LAB HEMETOLOGY METHOD 09/27/2024 12:[address] [facility] Immature Granulocytes Absolute 0.02 0.00 - 0.03 K/mcL LAB HEMETOLOGY METHOD 09/27/2024 12:[address] [facility] Blood Venous blood specimen / Unknown Venipuncture / Unknown 09/27/2024 12:24 AM EDT 09/27/2024 12:52 AM EDT us Luis Graves MD LAB BLOOD ORDERABLES Final Resu lt [facility] [address] [place] [address], [place] [phone] * B-type natriuretic peptide (09/27/2024 12:24 AM EDT) BNP 5 <=100 pcg/mL LAB CHEMISTRY METHOD 09/27/2024 1:[address] [facility] Blood Venous blood specimen / Unknown Venipuncture / Unknown 09/27/2024 12:24 AM EDT 09/27/2024 12:52 AM EDT Luis Graves MD LAB BLOOD ORDERABLES Final Resu lt [facility] [address] [place] [address], [place] [phone] * Magnesium (09/27/2024 12:24 AM EDT) Pathologist [facility] Magnesium 2.2 1.9 - 2.6 mg/dL LAB CHEMISTRY METHOD 09/27/2024 1:[address] [facility] Blood Venous blood specimen / Unknown Venipuncture / Unknown 09/27/2024 12:24 AM EDT 09/27/2024 12:51 AM EDT Luis Graves MD LAB BLOOD ORDERABLES Final Resu lt [facility] [address] [place] [address], [place] [phone] * Lipase (09/27/2024 12:24 AM EDT) Lipase 37 13 - 75 unit/L LAB CHEMISTRY METHOD 09/27/2024 1:[address] [facility] Blood Venous blood specimen / Unknown Venipuncture / Unknown 09/27/2024 12:24 AM EDT 09/27/2024 12:51 AM EDT us Luis Graves MD LAB BLOOD ORDERABLES Final Resu lt [facility] [address] [place] [address], [place] [phone] * Comprehensive metabolic panel (09/27/2024 12:24 AM EDT) Sodium 138 133 - 145 mmol/L LAB CHEMISTRY METHOD 09/27/2024 1:22 AM [facility] Potassium 4.0 3.5 - 5.5 mmol/L LAB CHEMISTRY METHOD 09/27/2024 1:22 AM [facility] Chloride 107 96 - 110 mmol/L LAB CHEMISTRY METHOD 09/27/2024 1:22 AM [facility] CO2 27 21 - 32 mmol/L LAB CHEMISTRY METHOD 09/27/2024 1:22 AM [facility] Anion Gap 4 3 - 11 LAB CHEMISTRY METHOD 09/27/2024 1:22 AM [facility] Glucose 93 70 - 100 mg/dL LAB CHEMISTRY METHOD 09/27/2024 1:22 AM [facility] BUN 13 5 - 25 mg/dL LAB CHEMISTRY METHOD 09/27/2024 1:22 AM [facility] Creatinine 0.77 0.50 - 1.10 mg/dL LAB CHEMISTRY METHOD 09/27/2024 1:22 AM [facility] eGFR 97 >=60 mL/min/1. 73m2 LAB CHEMISTRY METHOD 09/27/2024 1:22 AM [facility] Comment:Calculation based on the Chronic Kidney Disease Epidemiology Collaboration (CKD-EPI) equation refit without adjustment for race. BUN/Creatinine Ratio 16.9 LAB CHEMISTRY METHOD 09/27/2024 1:22 AM [facility] Calcium 8.9 8.5 - 10.5 mg/dL LAB CHEMISTRY METHOD 09/27/2024 1:[address] [facility] AST (SGOT) 13 10 - 42 unit/L LAB CHEMISTRY METHOD 09/27/2024 1:22 AM [facility] ALT (SGPT) 17 10 - 60 unit/L LAB CHEMISTRY METHOD 09/27/2024 1:22 AM [facility] Alkaline Phosphatase 57 42 - 121 unit/L LAB CHEMISTRY METHOD 09/27/2024 1:22 AM [facility] Total Protein 7.0 6.0 - 8.0 g/dL LAB CHEMISTRY METHOD 09/27/2024 1:22 AM [facility] Albumin 3.6 3.2 - 5.0 g/dL LAB CHEMISTRY METHOD 09/27/2024 1:22 AM [facility] Total Bilirubin 0.3 0.0 - 1.4 mg/dL LAB CHEMISTRY METHOD 09/27/2024 1:22 AM [facility] Blood Venous blood specimen / Unknown Venipuncture / Unknown 09/27/2024 12:24 AM EDT 09/27/2024 12:51 AM EDT Luis Graves MD LAB BLOOD ORDERABLES Final Resu lt [facility] [address] [place] [address], * ECG-Annotated (09/27/2024) us Provider Onbase ECG ORDERABLES Final Result * ECG 12 lead (09/26/2024 11:04 PM EDT) Ventricular Rate ECG 95 BPM GEMUSE Atrial Rate 95 BPM GEMUSE P-R Interval 138 ms GEMUSE QRS Duration 66 ms GEMUSE Q-T Interval 348 ms GEMUSE QTc 437 ms GEMUSE P Wave Chandler 18 degrees GEMUSE R Chandler 11 degrees GEMUSE T Chandler 29 degrees GEMUSE ECG Interpretation Normal sinus rhythm Normal ECG When compared with ECG of 08-APR-2024 09:49, No significant change was found Confirmed by Alcon AGOSTO, MICHELLE ([id number]) on 09/27/2024 7:19:48 PM GEMUSE 09/26/2024 11:0 4 PM EDT 09/27/2024 7:19 PM EDT us Luis Graves MD ECG ORDERABLES Final Result GEMUSE * Tissue exam (08/23/2024 9:12 AM EDT) Final Diagnosis Endometrial biopsy: Necrotic and inflamed decidua/pseudo-d ecidualized endometrium No trophoblastic tissue identified No viable endometrium identified 08/27/2024 10:16 AM [facility] Comment Given the patient's history of a Mirena IUD, this likely represents necrotic endometrium with progestin effect giving the pseudo-deciduali zed appearance. 08/27/2024 10:16 AM [facility] Clinical Information Lesion of endometrium N85.9 08/27/2024 10:16 AM [facility] Gross Description A. Endometrium, biopsy: Labeled Endo . Received in formalin is a 5.3 x 1.1 x 0.3 cm dusky leon-brown softened tissue fragment admixed with a 0.6 cm aggregate of irregular dusky astorga tissue fragments. The largest fragment is bisected. The specimen is entirely submitted in two cassettes, one piece and multiple pieces, respectively, x 2. DUNCAN 08/27/2024 10:16 AM [facility] Disclaimer Unless otherwise specified, all tissue is 10% NB formalin fixed and paraffin embedded. 08/27/2024 10:16 AM [facility] Tissue Endometrial structure / Unknown Non-blood Collection / Unknown 08/23/2024 9:12 AM EDT 08/23/2024 9:12 AM EDT Natalee Neumann MD LAB PATHOLOGY ORDERABLES Fi nal Result [facility] [address] [place] [address], [place] [phone] * Cervical Cancer Screening: HPV (12/20/2023) Pathologist [facility] Cervical Cancer Screening: HPV Negative, Abstracted Historical Provider HEALTH MAINTENANCE Final Result from Last 3 Months or Most Recently Relevant to Health Maintenance Insurance [facility] [employer] Care Teams Hair Specialist Relationship Specialty Start Date End Date Latosha Cherry MD [address] [facility] [place] [address] PCP - General Internal Medicine 08/22/24
== END 2024-07-25 00:01 | disposition home or self-care (01) ==
LOC: CF
PROVIDERS: PCP Internal Medicine; Visit Provider Physician Assistant
DX: F41.9 Anxiety disorder, unspecified (principal); M54.2 Cervicalgia
CPT/HCPCS: 99212

== ENCOUNTER 2024-07-25 15:06 | Outpatient (AMB) | payer OTHER, SELFPAY ==
[2024-07-25 15:10] VITALS: BP 122/70; PULSE 82; O2SAT 98; BMI 32.4
--- NOTE | 2024-07-25 15:10 | AM.OFFWIN_ITS ---
Intake Vital Signs 07/25/24 15:10 Height 5 ft 4 in Weight 189 lb BMI 32.4 BP 122/70 Blood Pressure Location Rt brachial Position Sitting Pulse 82 Pulse Source Pulse Oximeter Pulse Oximetry (%) 98 Oxygen Delivery Method Room Air Intake Visit Reasons: EP Anxiety and back pain Intake Note: Patient here for left arm pain that comes and goes which she is unsure if its related to a pinched nerve and she also sleeps on her arm. She would also like to talk about a pain/discomfort under her left breast that has been happening on and off for a while now. Patient Tobacco Use Status: Never used Tobacco Allergies pollen Allergy (Mild, Uncoded 07/25/24 15:14) Itchy Eyes Do you need a note to return to daycare/school/sports/work: No HPI HPI Comments History of Present Illness Details History of Present Illness - The patient is a 43-year-old female pr esenting with anxiety which has worsened. Her anxiety is most pronounced in the mornings and at night. She is on Buspirone 5 mg once daily, though it is prescribed for three times a day. She had multiple ER visits in the past year due to anxiety-related symptoms, but diagnostic tests, including troponin levels and imaging, ruled out acute cardiac issues and PE. - She is also complaining of left arm ti ngling and pain. She experiences neck pain that radiates down to her shoulder, right arm tingling, and occasional sharp pain under her right breast, not exacerbated by deep breathing. She avoids anti-inflammatory medications due to IBS. She denies comorbid hypertension or hyperlipidemia. There is no history of neck injuries. Physical Exam General: Cooperative, healthy appearing, comfortable, no acute distress and well developed Orientation: Patient oriented x3 Limitations: No limitations Head: Normal to inspection Ears: Hearing grossly normal bilaterally Nose: Normal External nose present Face and sinus: Normal facial exam Eyes: Appearance normal, both eyes and all related structures Neck: Normal visual inspection and Yes full ROM Respiratory: Normal respiratory effort and able to speak in complete sentences. Skin: No rashes or lesions noted Back/spine: no TTP to cervical, thoracic spine, TTP to left sided cervical muscular and left trapezius muscle pain Neuro: Patient oriented x3. Extremities: Normal to inspection [facility] Medical History (Updated 07/25/24 @ 15:32 by Ronda John PA-C) Left thyroid nodule Dyslipidemia Dyslipidemia (high LDL; low HDL) Vitamin D deficiency Lumbago with sciatica, right side Depression with anxiety Mild intermittent asthma COVID-19 virus infection Hemorrhoids Gastric ulcer Seasonal allergic rhinitis Menorrhagia IBS (irritable bowel syndrome) Surgical History (Updated 05/03/24 @ 09:38 by Lauren Serrano) History of esophagogastroduodenoscopy (EGD) H/O colonoscopy Hx of tubal ligation Family History Father No problems noted. Paternal Grandmother No problems noted. Paternal Uncle Mental health disorder Paternal Grandmother Mental health disorder Mother Mental health disorder Social History Housing: Apartment Alcohol intake: current Alcohol intake frequency: does not drink Patient Tobacco Use Status: Never used Tobacco e-Cigarette/Vaping Use: Never Used Second Hand Smoke Exposure: No service: No Current occupational status: employed Cognitive needs: No Hearing needs: No Vision needs: Yes Review of Systems Const All systems reviewed & are unremarkable except as noted in HPI and below Physical Exam Vital Signs: Last Vital Signs Pulse 82 07/25/24 15:10 BP 122/70 07/25/24 15:10 Pulse Ox 98 07/25/24 15:10 Oxygen Delivery Method Room Air 07/25/24 15:10 BMI result Body Mass Index 32.4 Assessment & Plan Assessment & Plan (1) Anxiety: Code(s): F41.9 - Anxiety disorder, unspecified Plan: VSS, pt well appearing and PE remarkable for left sided cervical muscle and trapezius muscle tenderness. Declined EKG. I advised the patient to increase her Buspirone usage to 3 times daily for improved anxiety management, which could also help reduce musculoskeletal pain aggravated by stress/anxiety. Non- pharmacological treatment with ice application to the neck was recommended to alleviate cervical radiculopathy symptoms. The use of topical Voltaren gel was suggested as the patient cannot take systemic NSAIDs due to IBS. Given her low likelihood of cardiac issues, immediate cardiac intervention was not deemed necessary; however, I encouraged follow-up with her primary care provider to consider further management for anxiety, including potential SSRIs. Patient was informed and verbally consented to the use of an ambient scribe for clinic note documentation during this visit. (2) Neck pain on left side: Code(s): M54.2 - Cervicalgia Plan: as above Coding Level of Care Code Est Pt Level 3 (75239) Diagnoses Anxiety F41.9 Neck pain on left side M54.2
--- OUTSIDE RECORDS SUMMARY | 2024-07-25 18:06 | XMS_ITS | Clinical Summary ---
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 Role Phone Unavailable Primary Care Provider Unavailabl e Social History Tobacco Use Types Packs/Day Years Used Date Smoking Tobacco: Never Assessed Comments Unknown Sex and Gender Information Value Date Recorded Sex Assigned at Female 03/01/2022 10:36 AM EDT Legal Sex Female 10:36 AM EDT Gender Identity Not on file Sexual Orientation Straight 03/01/2022 10 :36 AM EDT Last Filed Vital Signs Vital Sign Reading Time Taken Comments Blood Pressure 120/88 06/26/2019 12:02 AM EST Pulse 80 06/26/2019 12:02 AM EST Temperature - - Respiratory Rate - - Oxygen Saturation - - Inhaled Oxygen Concentration - - Weight 84.9 kg (187 lb 3.2 oz) 06/26/2019 12:02 AM EST Height 158.8 cm (5' 2.5 ) 06/26/2019 12:02 AM ES T Body Mass Index 33.69 06/26/2019 12:02 AM EST Plan of Treatment Health Maintenance Due Date Last Done Comments CT Colonography 1978 Colonoscopy 1978 Colorectal Cancer Screening 1978 Depression Screening 1978 FIT DNA/Cologuard 1978 FIT 1978 FOBT 1978 Sigmoidoscopy 1978 Alcohol/Substance Use Screening 1990 Tobacco Screening 1990 Family Planning (PISQ) 1993 DTaP/Tdap/Td Vaccines (1 - Tdap) 1997 Hepatitis B Vaccines (1 of 3 - 19+ 3-dose series) 1997 Pap Smear 11/05/1999 Mammogram 2018 COVID-19 Vaccine (2023-2 5 season) 2024 Influenza Vaccine (#1) 2024 Cervical Cancer Screening 06/26/2024 HPV/Cotest 06/26/2024 06/26/2019 Zoster Vaccines (1 of 2) 2028 RSV Patients and Pa tients Aged 60 years or older (1 - 1-dose 75+ series) 2053 HIB Vaccines Aged Out No longer eligi ble based on patient's age to complete this topic HPV Vaccines Aged Out No longer eligi ble based on patient's age to complete this topic Hepatitis A Vaccines Aged Out No long er eligible based on patient's age to complete this topic IPV Vaccines Aged Out No longer eligi ble based on patient's age to complete this topic Meningococcal Vaccine Aged Out No lucy mae eligible based on patient's age to complete this topic Pneumococcal Vaccine: Pediat rics (0 to 5 Years) and At-Risk Patients (6 to 49) Years) Aged Out No longer elig ible based on patient's age to complete this topic RSV under 20 months Aged Out No longe r eligible based on patient's age to complete this topic Rotavirus Vaccines Aged Out No longer eligible based on patient's age to complete this topic Procedures Procedure Name Priority Date/Time Associated Diagnosis Comments ZZZ HISTORICAL HPV MRNA E6/E7 Routine 06/26/2019 3:53 PM EST from Last 3 Months or Most Recently Relevant to Health Maintenance Results * HPV mRNA E6/E7 (06/26/2019 3:53 PM EST) HPV mRNA E6/E7 Not Detected NOT DETECTED [facility] Comment: This test was performed using the APTIMA(R) HPV Assay ([employer] This assay detects E6/E7 viral messenger RNA (mRNA) from 14 high-risk HPV types (16,18,31,33,35,39,45,51, 52,56,58,59,66,68). For additional information please refer to: http://education.[employer].MobileDay/faq/MUY875i0 (This link is being provided for informational/ educational purposes only.) The analytical performance characteristics of this assay have been determined by [employer] [place], [place]. The modifications have not been cleared or approved by the FDA. This assay has been validated pursuant to the CLIA regulations and is used for clinical purposes. Test Performed by [employer], [employer] [facility], [address] [place] [address] Tin Pierre M.D., Ph.D., Director of Laboratories , CLIA [id number] Please note: ??Effective 01/12/2016, HPV testing will be performed using [employer]'s APTIMA test which targets mRNA. Detecting mRNA instead of DNA, as in older methods, offers significant improvements in specificity. 06/26/2019 3:53 PM EST us May Medina CNM HISTORICAL/NON ORDERABLE LABS Final Result [facility] [address] from Last 3 Months or Most Recently Relevant to Health Maintenance
--- OUTSIDE RECORDS SUMMARY | 2024-07-25 18:06 | XMS_ITS | Patient Health Record ---
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 Role Phone TIERNEY TELLO Unavailable [phone] Allergies No Known Allergies Reason For Referral No Information Medications Medication SIG (Take, Route, Frequency, Duration) Notes Start Date End Date Status Omeprazole 20 MG 1 capsule 30 minutes before morning meal Orally Once a day Active busPIRone HCl 5 MG 1 tablet Orally Twic e a day Active Dicyclomine HCl 10 MG as directed Orally Once a day Active Vitamin D (Ergocalciferol) 1.25 MG (66048 UT) 1 capsule Orally Once a week Active Cetirizine HCl 5 MG 1 tablet Orally Once a day Active Incassia 0.35 MG TAKE 1 TABLET BY OLY TH EVERY DAY Orally Once a day for 84 days Active Social History Tobacco Use: Social History Observation Description Date Details (start date - stop date) Never Smoker NA - NA Tobacco Use/Smoking Question Answer Notes Are you a nonsmoker Alcohol Screen (Audit-C) Question Answer Notes Did you have a drink contain ing alcohol in the past year? Yes How often did you have a dri nk containing alcohol in the past year? Monthly or less (1 point) How many drinks did you have on a typical day when you were drinking in the past year? 1 or 2 drinks (0 point) How often did you have 6 or more drinks on one occasion in the past year? Never (0 point) Points 1 Interpretation Negative Plan Of Treatment Pending Test Test Name Order Date ONE SWAB 12/06/2019 MM Digital Screening Mammogram 3D 2020 MM Digital Screening Mammogram 3D 2021 MM Digital Screening Mammogram 3D 2022 Insurance Providers Payer Name Payer Address Payer Phone Subscriber Number Group Number Insured Name Patient Relationship to Insured Coverage Start Date Coverage End Date YOLIE MEHTA [address] [place] [address] [id number] LEONARDO CALZADA Self - patient is the insured Medical (General) History Medical History History ICD Code Unspecified asthma, uncomplicated J45.90 9 Anxiety disorder, unspecified F41.9 Major depressive disorder, recurrent, mo derate F33.1 Nontoxic multinodular goiter E04.2 Mixed irritable bowel syndrome K58.2 COVID-19 U07.1 Surgical History Surgery Date(Month/Year) Tubal ligation 01/25/2008 Hospitalization History Reason Date(Month/Year) childbirth 01/12/2006 childbirth 01/24/2008
--- OUTSIDE RECORDS SUMMARY | 2024-07-25 18:06 | XMS_ITS | Clinical Summary ---
Author Organization [facility] [address] [place] [address] [place] [phone] Phone Care Team Providers Care Roller Name Role Phone Latosha Cherry MD Primary Care Provider Allergies No known active allergies Medications OMEPRAZOLE ORAL Take by mouth. Active buspirone HCl (BUSPIRONE ORAL) Take by mouth. Activ e loratadine (CLARITIN ORAL) Take by mouth. Active Fe gluconate/vit C/folic acid (IRON-C ORAL) Take by mouth. A ctive dicyclomine (BENTYL) 10 mg capsule TAKE 1 CAPSULE BY MOUTH 3 TIMES A DAY NEEDED FOR FOR ABDOMINAL PAIN 4 Active medroxyPROGESTE Kai (PROVERA) 10 mg tablet Take 1 tablet (10 mg total) by mouth 3 (three) times a day for 10 days. If bleeding is controlled decrease to twice daily. 30 tablet 4 Active albuterol HFA (PROAIR HFA ; PROVENTIL HFA ; VENTOLIN HFA) 90 mcg/actuation inhaler INHALE 2 PUFFS INTO THE LUNGS 4 TIMES A DAY NEEDED FOR SHORTNESS OF BREATH OR WHEEZING 4 Active Hospital, Clinic, or Other Facility Administered Medication Ordered Dose Route Frequency Start Date End Date Status levonorgestreL (MIRENA) 21 mcg/24hr (up to 8 yrs) 52 mg IUDIndications:Prolonged menstruation utrn Once 07/11/2024 07/11/2024 Ended Active Problems Problem Noted Date Diagnosed Date Irregular menstrual cycle 05/11/2024 Assessment & Plan (05/11/2024 7:35 PM EST): Variable bleeding pattern could be caused by prolonged hormone exposure vs perimenopause. I recommended she not using any hormonal therapy and have repeat labs in 1 additional month. She was offered to return for IUD vs observe. She would like to schedule Mirena for just after labs to allow her not to worry about menses returning. Prolonged menstruation 12/14/2023 Overview (04/03/2024): Last Assessment & Plan: I explained to Shakila that, based on her history and her US findings, I suspect her bleeding is related to adenomyosis. I explained what this is and also that it cannot be diagnosed except on pathology, but that it can be surmised from a non- specifically enlarged uterus and heavy or painful periods. I explained that she could go on oral hormonal medication to regulate her periods and help with pain, but she could also consider Mirena IUD which is the treatment of choice for adenomyosis. She was open to this as she desired to avoid systemic hormones. She was open to starting Aygestin temporarily to stop her acute bleeding while she checks with her insurance about Mirena coverage. She will schedule follow up for placement in the next few weeks. I gave her info about Mirena to review in the meantime. Right ovarian cyst 12/14/2023 Overview (04/03/2024): Last Assessment & Plan: Explained this is likely physiologic and will resolve spontaneously. She will have repeat US 8 weeks from last. She agrees to schedule this. Assessment & Plan (05/11/2024 7:35 PM EST): Follow up US ordered for early Jun. Anemia 12/01/2023 Encounters Date Type Department Care Team Description 07/11/2024 11:15 AM EDT Procedure visit Obstetrics and Gynecology - [address] [phone] Natalee Neumann MD Prolonged menstruation (Primary Dx); examination or test, negative result 06/13/2024 11:15 AM EST Lab Draw Station - [address] Irregular menstrual cycle; Abnormal uterine bleeding (AUB) 06/13/2024 10:17 AM EST - 06/13/2024 11:59 PM EST Hospital Encounter Radiology Department - [address] [phone] Irregular menstrual cycle Discharge Disposition: Home or Self Care 05/11/2024 11:15 AM EST Office Visit Obstetrics and Gynecology - [address] [phone] Natalee Neumann MD Irregular menstrual cycle (Primary Dx); Right ovarian cyst from Last 3 Months Surgical History Surgery Date Site/Laterality Comments OTHER SURGICAL HISTORY PROCEDURE: ND LIG/TRNSXJ FLP TUBE ABDL/VAG APPR UNI/BI Medical History Medical History Date Comments IBS (irritable bowel syndrome) D X:IBS (irritable bowel syndrome) Hypercholesteremia DX:Hyperchole steremia Family History Medical History Relation Name Comments Breast cancer Aunt 1 maternal from [place] in her 40s Breast cancer Aunt 2 maternal unsure of age at dx Prostate cancer Maternal Grandfather Lung cancer Paternal Grandfather Cancer of Small Bowel Neg Hx Colon cancer Neg Hx Kidney cancer Neg Hx Ovarian cancer Neg Hx Pancreatic cancer Neg Hx Uterine cancer Neg Hx Relation Name Status Comments Aunt 1 maternal Alive Aunt 2 maternal Alive Maternal Grandfather Paternal Grandfather Social History Tobacco Use Types Packs/Day Years Used Date Smoking Tobacco: Never Smokeless Tobacco: Never Tobacco Cessation:Counseling Given: Not Answered Alcohol Use Standard Drinks/Week Comments Yes 0 (1 standard drink = 0.6 oz pur e alcohol) occ. Housing Instability Answer Date Recorde d Are you worried that in the next 2 months you may not have stable housing? No 07/11/2024 Food Access & Nutrition Answer Date Rec orded Do you have access to a vari ety of food including fruits and vegetables? Yes 07/11/2024 Health Literacy Answer Date Recorded How often do you need to hav e someone help you when you read instructions, pamphlets, or other written material from your doctor or pharmacy? Never 07/11/2024 Caregiver: How often do you need to have someone help you when you read instructions, pamphlets, or other written material from your doctor or pharmacy? Not on file 07/11/2024 Financial Risk Answer Date Recorded How hard is it for you to pa y for the very basics like food, housing, medical care, and air conditioning / heating? Not very hard 07/11/2024 Transportation Answer Date Recorded Has the lack of transportati on kept you from meetings, work, or from getting things needed for daily living? No Has the lack of transportati on kept you from medical appointments or from getting medications? No 07/11/2024 Social Isolation Answer Date Recorded How often do you feel lonely or isolated from th ose around you? Often 07/11/2024 Food Risk Answer Date Recorded Within the past 12 months we worried whether our food would run out before we got money to buy more. Sometimes true 025 Within the past 12 months th e food we bought just didn't last and we didn't have money to get more. Never true 07/11/2024 Dependent Care Answer Date Recorded Do you need help finding or paying for care for your loved ones. For example, childrens club attendant or elderly care for an older adult? No 07/11/2024 Education Answer Date Recorded Do you think completing more education or training, like finishing a GED, going to college, or learning a trade, would be helpful for you? Patient declined 07/11/2024 Employment and Income Answer Date Recor ded During the last four weeks, have you been actively looking for work? Patient declined 07/11/2024 Living Situation Answer Date Recorded What is your living situation? 0 07/11/2024 Comments No Sex and Gender Information Value Date Recorded Sex Assigned at Not on file Legal Sex Female 8:55 PM EST Gender Identity Not on file Sexual Orientation Not on file Obstetrics History Para Term AB IAB SAB Ectopic Multiple Livin g Live Births 2 2 2 0 0 0 0 0 0 0 0 Date Outcome GA Total Labor Labor/2nd/3rd Weight Sex Type Anes PTL Basia A1 A5 Name Clin Term Vag-Spo nt Term Vag-Spo nt Last Filed Vital Signs Vital Sign Reading Time Taken Comments Blood Pressure 111/84 07/11/2024 11:24 AM EDT Pulse 94 07/11/2024 11:24 AM EDT Temperature 37.3 ??C (99.1 ??F) 04/08/2024 10:[address] Respiratory Rate 18 07/11/2024 11:24 AM EDT Oxygen Saturation 100% 04/08/2024 5:27 PM EST Inhaled Oxygen Concentration - - Weight 82.6 kg (182 lb 3.2 oz) 07/11/2024 11:24 AM EDT Height 162.6 cm (5' 4 ) 07/11/2024 11:24 AM EDT Body Mass Index 31.27 07/11/2024 11:24 AM EDT Plan of Treatment Upcoming Encounters Date Type Department Care Team (Late st Contact Info) Description 08/23/2024 8:45 AM EDT Office Visit Obstetrics and Gynecology - [address] [phone] Natalee Neumann MD [address] [place], [place] Health Maintenance Due Date Last Done Comments Breast Cancer Screening 1978 DTaP,Tdap,and Td Vaccines (1 - Tdap) 1997 Hepatitis B Vaccines (1 of 3 - 19+ 3-dose series) 1997 Colorectal Cancer Screening: Colonoscopy 05/27/2023 HIV Screening 05/27/2023 Hepatitis C Screening 05/27/2023 COVID-19 Vaccine (3 - 2023-2 5 season) 2024 11/30/2020, 11/07/2020 Influenza Vaccine (#1) 2024 Depression Screening 07/11/2025 07/11/2024 Social Influencers of Health Screening 07/11/2025 07/11/2024 Cervical Cancer Screening: HPV 12/19/2028 12/20/2023 HIB Vaccines Aged Out No longer eligi [...] on patient's age to complete this topic MMR Vaccines Aged Out No longer eligi ble based on patient's age to complete this topic Meningococcal ACWY Vaccine Aged Out N o longer eligible based on patient's age to complete this topic Meningococcal B Vacine Aged Out No lo nger eligible based on patient's age to complete this topic Pneumococcal Vaccine: Pediatrics (0 to 5 Years) and At-Risk Patients (6 to 64 Years) Aged Out No longer eligible b ased on patient's age to complete this topic RSV Immunization Patients Under 20 months Aged Out No longer eligible b ased on patient's age to complete this topic Varicella Vaccines Aged Out No longer eligible based on patient's age to complete this topic Procedures Procedure Name Priority Date/Time Associated Diagnosis Comments POC , URINE DIAGNOSTIC Routine 07/11/2024 11:36 AM EDT examination or test, negative result US PELVIS NON OB COMPLETE W TRANSVAGINAL Routine 06/13/2024 11:06 AM EST Irregular menstrual cycle HEMOGLOBIN AND HEMATOCRIT Routine 06/13/2024 11:06 AM EST Abnormal uterine bleeding (AUB) FOLLICLE STIMULATING HORMONE Routine 06/13/2024 11:06 AM EST Irregular menstrual cycle ESTRADIOL Routine 06/13/2024 11:06 AM EST Irregular menstrual cycle PROLACTIN Routine 06/13/2024 11:06 AM EST Irregular menstrual cycle TESTOSTERONE FREE, BIOAVAILABLE AND TOTAL Routine 06/13/2024 11:06 AM EST Irregular menstrual cycle THYROID STIMULATING HORMONE WITH REFLEX TO FREE T4 AND FREE T3 Routine 06/13/2024 11:06 AM EST Irregular menstrual cycle HM HPV Routine 12/20/2023 from Last 3 Months or Most Recently Relevant to Health Maintenance Results * (ABNORMAL) POC , urine manually resulted (07/11/2024 11:36 AM EDT) HCG, Ur POC Negative Negative POC hCG Int QC Pass? Yes Yes Urine Urine specimen obtained by clean catch procedure / Unknown 07/11/2024 11:36 AM EDT us Natalee Neumann MD POINT OF CARE TEST ENTER/ED IT ORDERABLES Final Result * US Pelvis Non OB Complete w Transvaginal (06/13/2024 11:06 AM EST) Anatomical Region Laterality Modality Body, Pelvis Ultrasound 06/13/2024 2:45 PM EST Impressions 06/13/2024 2:50 PM EST 1. Endometrial stripe measures 1.1 cm 2. Subserosal fibroid -------- FINAL REPORT -------- Dictated By: Myke Mendoza Dictated Date: 06/13/2024 14:45 ET Assigned Physician: Myke Mendoza Reviewed and Electronically Signed By: Myke Mendoza Signed Date: 06/13/2024 14:50 ET Workstation ID: [id number] Transcribed By: Self Edit Transcribed Date: 06/13/2024 14:45 ET Narrative 06/13/2024 2:50 PM EST EXAM: TRANSABDOMINAL AND TRANSVAGINAL PELVIC ULTRASOUND HISTORY: irregular mense COMPARISON: Ultrasound pelvis from 12/08/2023 Technique: Grayscale and Doppler images of the pelvis were obtained using transabdominal approach. Transvaginal approach was used to better characterize the ovaries. FINDINGS: The uterus is normal in size and measures 13.2 x 5.2 x 6.5 cm. The endometrial stripe measures up to 1.1 cm. Hypoechoic solid mass measuring 1.4 x 1.3 x 1.1 cm in the subserosal region Right ovary measures 3.1 x 3.4 x 4.4 cm and is sonographically unremarkable. ??An anechoic thin-walled follicle measuring 2.3 x 2.8 x 2.6 cm. Left ovary measures 2.7 x 2.2 x 2.3 cm and is also sonographically unremarkable. ??An anechoic thin-walled follicle measures 1.7 x 2.1 x 1.8 cm. No free fluid. Procedure Note Myke Mendoza MD - 06/13/2024 EXAM: TRANSABDOMINAL AND TRANSVAGINAL PELVIC ULTRASOUND HISTORY: irregular mense COMPARISON: Ultrasound pelvis from 12/08/2023 Technique: Grayscale and Doppler images of the pelvis were obtained usingtransabdominal approach. Transvaginal approach was used to bettercharacterize the ovaries. FINDINGS: The uterus is normal in size and measures 13.2 x 5.2 x 6.5 cm. Theendometrial stripe measures up to 1.1 cm. Hypoechoic solid mass measuring1.4 x 1.3 x 1.1 cm in the subserosal region Right ovary measures 3.1 x 3.4 x 4.4 cm and is sonographicallyunremarkable. An anechoic thin-walled follicle measuring 2.3 x 2.8 x 2.6cm. Left ovary measures 2.7 x 2.2 x 2.3 cm and is also sonographicallyunremarkable. An anechoic thin-walled follicle measures 1.7 x 2.1 x 1.8cm. No free fluid. IMPRESSION: 1. Endometrial stripe measures 1.1 cm 2. Subserosal fibroid -------- FINAL REPORT -------- Dictated By: Myke Mendoza Dictated Date: 06/13/2024 14:45 ET Assigned Physician: Myke Mendoza Reviewed and Electronically Signed By: Myke Mendoza Signed Date: 06/13/2024 14:50 ET Workstation ID: [id number] Transcribed By: Self Edit Transcribed Date: 06/13/2024 14:45 ET us Natalee Neumann MD [facility] US PROCEDURES Final Res ult * Thyroid stimulating hormone with reflex to free t4 and free t3 (06/13/2024 11:06 AM EST) TSH 0.66 0.40 - 4.00 mcIU/mL LAB CHEMISTRY METHOD 06/13/2024 3:33 PM EST [facility] Blood Venous blood specimen / Unknown Venipuncture / Unknown 06/13/2024 11:06 AM EST 06/13/2024 11:06 AM EST us Natalee Neumann MD LAB BLOOD ORDERABLES Final Result Performing Organization Address City/[facility]/ZIP Co de Phone Number [facility] [address] [place] [address], * Testosterone free, bioavailable and total (06/13/2024 11:06 AM EST) Testosterone 18 9 - 48 ng/dL LAB CHEMISTRY METHOD 06/13/2024 3:36 PM EST [facility] Testosterone, Free 0.3 0.0 - 0.5 ng/dL LAB CHEMISTRY METHOD 06/13/2024 3:36 PM EST [facility] Testosterone, Bioavailable 6 1 - 9 ng/dL LAB CHEMISTRY METHOD 06/13/2024 3:36 PM [facility] Sex Hormone Binding 43.2 See Comment nmol/L LAB CHEMISTRY METHOD 06/13/2024 3:36 PM EST [facility] Comment: FEMALES: ??pre-menopausal ?? 10.8 - >180 ??post-menopausal ??23.2 - 159.1 MALES: ?? 21-49 years ? 14.6 - 94.6 ?? 50-89 years ? 21.6 - 113.1 CHILDREN: ??No established reference range Over the counter supplements containing high doses of biotin may interfere with this assay. ??If interference is suspected, patients should be retested after refraining from biotin supplements for 72 hours. Albumin 3.8 3.2 - 5.0 g/dL LAB CHEMISTRY METHOD 06/13/2024 3:36 PM EST [facility] Blood Venous blood specimen / Unknown Venipuncture / Unknown 06/13/2024 11:06 AM EST 06/13/2024 11:06 AM EST Natalee Neumann MD LAB BLOOD ORDERABLES Final Result [facility] [address] [place] [address], * (ABNORMAL) Hemoglobin and hematocrit (06/13/2024 11:06 AM EST) [facility] Hemoglobin 10.5(L) 11.5 - 16.0 g/dL LAB HEMETOLOGY METHOD 06/13/2024 12:37 PM EST [facility] Hematocrit 34.7(L) 35.0 - 47.0 % LAB HEMETOLOGY METHOD 06/13/2024 12:37 PM EST [facility] Blood Venous blood specimen / Unknown Venipuncture / Unknown 06/13/2024 11:06 AM EST 06/13/2024 11:06 AM EST Radha GARY LAB BLOOD ORDERABLES Final R esult Performing Organization Address [facility]/ZIP Co de Phone Number [facility] [address] [place] [address], * Prolactin (06/13/2024 11:06 AM EST) [facility] Prolactin 17.00 See Comment ng/mL LAB CHEMISTRY METHOD 06/13/2024 3:29 PM EST [facility] Comment: Prolactin Reference Ranges (ng/mL) ??Non ?2.2 - ??30.3 ? 8.1 - 347.6 ??Postmenopausal 0.7 - ??31.5 Blood Venous blood specimen / Unknown Venipuncture / Unknown 06/13/2024 11:06 AM EST 06/13/2024 11:06 AM EST Natalee Neumann MD LAB BLOOD ORDERABLES Final Result [facility] [address] [place] [address], * Estradiol (06/13/2024 11:06 AM EST) [facility] Estradiol 248 See below pcg/mL LAB CHEMISTRY METHOD 06/13/2024 3:29 PM EST [facility] Comment: ESTRADIOL REFERENCE RANGES (PG/ML) FEMALES NORMALLY MENSTRUATING: FOLLICULAR PHASE 21.4 - 164.8 MIDCYCLE PEAK ?49.9 - 367.2 LUTEAL PHASE ? 40.2 - 259.0 POSTMENOPAUSAL: ON HRT ?<11 - 462.1 UNTREATED ? <11 - ??58.3 Fulvestrant has been shown to cross-react with the estradiol assay and cause falsely elevated results. For patients being treated with fulvestrant, Estradiol ultrasensitive should be ordered. ??This test is performed by LC/MS and is not expected to show cross reactivity to fulvestrant. Blood Venous blood specimen / Unknown Venipuncture / Unknown 06/13/2024 11:06 AM EST 06/13/2024 11:06 AM EST Natalee Neumann MD LAB BLOOD ORDERABLES Final Result [facility] [address] [place] [address], * Follicle stimulating hormone (06/13/2024 11:06 AM EST) [facility] Follicle Stimulating Hormone 12.1 See Comment mIU/mL LAB CHEMISTRY METHOD 06/13/2024 3:29 PM EST [facility] Comment: FSH REFERENCE RANGES (MIU/ML) FEMALES NORMALLY MENSTRUATING: FOLLICULAR PHASE ??2.3 - 12.6 MIDCYCLE PEAK ? 5.2 - 17.5 LUTEAL PHASE ?1.7 - ??9.5 POSTMENOPAUSAL: ON HRT ?5.9 - ??72.8 UNTREATED ?12.7 - 132.2 Blood Venous blood specimen / Unknown Venipuncture / Unknown 06/13/2024 11:06 AM EST 06/13/2024 11:06 AM EST Natalee Neumann MD LAB BLOOD ORDERABLES Final Result [facility] [place] ([facility]) [facility] [address] [place] [address], [place] [phone] * Cervical Cancer Screening: HPV (12/20/2023) [facility] Cervical Cancer Screening: HPV Negative, Abstracted Historical Provider HEALTH MAINTENANCE Final Result from Last 3 Months or Most Recently Relevant to Health Maintenance Insurance [facility] [employer] Care Teams Roller Relationship Specialty Start Date End Date Latosha Cherry MD [address] [facility] [place] [address] PCP - General 11/17/23
--- OUTSIDE RECORDS SUMMARY | 2024-07-25 18:06 | XMS_ITS | Encounter Summary ---
Author Organization [facility] Address [address] [place] [address] Care Team Providers Care Specialty Food Products Supervisor Name Role Phone Latosha Cherry MD Primary Care Provider [phone] Reason for Visit * Reason Comments Mirena Insertion Encounter Details Date Type Department Care Team (Latest Contact Info) Description 07/11/2024 11:15 AM EDT Procedure visit Obstetrics and Gynecology [address] [phone] Natalee Neumann MD [address] [place], [place] Prolonged menstruation (Primary Dx); examination or test, negative result Social History Tobacco Use Types Packs/Day Years [...] care for your loved ones. For example, child daycare worker or elderly care for an older adult? [...] on file Sexual Orientation Not on file documented as of this encounter Last Filed Vital Signs Vital Sign Reading Time Taken Comments Blood Pressure 111/84 07/11/2024 11:24 AM EDT Pulse 94 07/11/2024 11:24 AM EDT Temperature - - Respiratory Rate 18 07/11/2024 11:24 AM EDT Oxygen Saturation - - Inhaled Oxygen Concentration - - Weight 82.6 kg (182 lb 3.2 oz) 07/11/2024 11:24 AM EDT Height 162.6 cm (5' 4 ) 07/11/2024 11:24 AM EDT Body Mass Index 31.27 07/11/2024 11:24 AM EDT documented in this encounter Progress Notes * Natalee Neumann MD - 07/11/2024 11:15 AM EDT 07/11/2024 IUD Insert The patient is a 43 y.o. who presents for an insertion of an IUD. IUD Type Mirena Reason for IUD Encounter Diagnoses Name Primary? Prolonged menstruation Yes examination or test, negative result Prior to Admission medications Medication Sig Start Date End Date Taking? Authorizing Provider albuterol HFA (PROAIR HFA ; PROVENTIL HFA ; VENTOLIN HFA) 90 mcg/actuation inhaler INHALE 2 PUFFS INTO THE LUNGS 4 TIMES A DAY NEEDED FOR SHORTNESS OF BREATH OR WHEEZING 12/29/23 Yes Historical Provider, buspirone HCl (BUSPIRONE ORAL) Take by mouth. Yes Historical Provider, dicyclomine (BENTYL) 10 mg capsule TAKE 1 CAPSULE BY MOUTH 3 TIMES A DAY NEEDED FOR FOR ABDOMINAL PAIN 07/20/23 Yes Historical Provider, Fe gluconate/vit C/folic acid (IRON-C ORAL) Take by mouth. Yes Historical Provider, loratadine (CLARITIN ORAL) Take by mouth. Yes Historical Provider, OMEPRAZOLE ORAL Take by mouth. Yes Historical Provider, medroxyPROGESTERone (PROVERA) 10 mg tablet Take 1 tablet (10 mg total) by mouth 3 (three) times a day for 10 days. If bleeding is controlled decrease to twice daily. 04/04/24 04/14/24 COOKIE Hu[place] No Known Allergies Vitals: 07/11/24 1124 BP: 111/84 Pulse: 94 Resp: 18 Weight: 82.6 kg (182 lb 3.2 oz) Height: 1.626 m (64 ) The risks, benefits and alternatives to the IUD were discussed today. Discussed risk of infection, bleeding, allergic reaction, severe cramping, and perforation with insertion. The general risks of infection, expulsion and , as well as ectopic were discussed. She has also read anFrequency patient education pamphlet. She is aware that the Mirena IUD is effective for 7 years for contra ception as approved by the FDA. Informed consent was obtained and she had no further questions. test was performed and negative. Procedure: The patient was positioned on the table in a lithotomy position. On bimanual exam, the uterus was anteverted, normal in size, and had no tenderness present. A speculum was inserted into the vagina and the cervix was visualized. The cervix was prepped with Betadine. The cervix was graspedby a single toothed tenaculum and the uterus was sounded to 11 cm. The IUD was inserted without diff iculty. The string was trimmed to approximately 3cm. The tenaculum was removed and hemostasis was noted. The patient tolerated the procedure well. Follow up: 6-8 weeks No problem-specific Assessment & Plan notes found for this encounter. Orders Placed This Encounter Procedures POC , urine manually resulted Natalee Neumann MD documented in this encounter Plan of Treatment Upcoming Encounters Date Type Department Care Team (Late st Contact Info) Description 08/23/2024 8:45 AM EDT Office Visit Obstetrics and Gynecology [address] [phone] Natalee Neumann MD [address] [place], [place] documented as of this encounter Procedures Procedure Name Priority Date/Time Associated Diagnosis Comments POC , URINE DIAGNOSTIC Routine 07/11/2024 11:36 AM EDT examination or test, negative result documented in this encounter Results * (ABNORMAL) POC , urine manually resulted (07/11/2024 11:36 AM EDT) HCG, Ur POC Negative Negative POC hCG Int QC Pass? Yes Yes Urine Urine specimen obtained by clean catch procedure / Unknown 07/11/2024 11:36 AM EDT Natalee Neumann MD POINT OF CARE TEST ENTER/ED IT ORDERABLES Final Result documented in this encounter Visit Diagnoses Diagnosis Prolonged menstruation- Primary examination or test, negative result documented in this encounter Administered Medications Inactive Administered Medications - up to 3 most recent administrations Medication Order MAR Action Action Date Dose Rate Site levonorgestreL (MIRENA) 21 mcg/24hr (up to 8 yrs) 52 mg IUD intrauterine, Once, On Tue07/11/24 at 1215, For 1 doseIndications:Prolonged menstruation Given 07/11/2024 12:08 PM EDT documented in this encounter Orders Medications Ordered That Rgegie ht Not Have Been Administered Count Last Ordered Date First Ordered Date levonorgestreL (MIRENA) 21 m cg/24hr (up to 8 yrs) 52 mg IUD 1 07/11/2024 documented in this encounter Additional Health Concerns Assessment Noted Time PHQ-9 Depression Total Score: 13 025 9:04 AM EDT documented as of this encounter Care Teams Specialty Food Products Supervisor Relationship Specialty Start Date End Date Latosha Cherry MD [address] [place] [address] PCP - General 11/17/23 documented as of this encounter
== END 2024-07-25 15:35 | disposition home or self-care (01) ==
PROVIDERS: PCP Internal Medicine; Visit Provider Physician Assistant
DX: F41.9 Anxiety disorder, unspecified (principal); M54.2 Cervicalgia

== ENCOUNTER 2024-08-08 08:33 | Outpatient (AMB) | payer OTHER, SELFPAY ==
--- NOTE | 2024-08-08 08:36 | A.OFFPC_ITS ---
Vital Signs 08/08/24 08:41 Height 5 ft 4 in Weight 184 lb BMI 31.6 BP 110/84 Blood Pressure Location Lt brachial Position Sitting Respiration 16 Pulse 97 Pulse Source Pulse Oximeter Pulse Oximetry (%) 98 Oxygen Delivery Method Room Air Intake Visit Reasons: PE Intake Note: Pt is here today for her PE: Last mammogram 07/15/23, papsmear 10/02/20 Allergies pollen Allergy (Mild, Uncoded 08/08/24 08:55) Itchy Eyes Medication List - Last Reconciled 08/08/24 by Latosha Cherry MD albuterol sulfate 90 mcg/actuation 2 puffs inhalation QID PRN albuterol sulfate 0.63 mg (3 mL) inhalation QID PRN 30 days buspirone 5 mg PO TID dicyclomine 10 mg PO TID PRN fluticasone propionate 50 mcg/actuation 1 spray intranasal DAILY levonorgestrel (Mirena) intrauterine omeprazole 20 mg PO DAILY 90 days Tobacco use date assessed: 08/04/23 Dental Screening Dental Screen Date: 08/08/24 HPI PE HPI Details 43-year-old lady , with history of dysli pidemia, adenomyosis of the uterus, with irregular menstrual bleeding, history of left thyroid nodule with ultrasound done in 2021 showing a 0.6 x 0.4 x 0.6 cm nodule, with no FNA biopsy indicated, has mild intermittent asthma and history of gastric ulcer and IBS, here today for her physical exam. She had her last Pap smear in 2020 at [facility] with negative findings, last screening mammogram was done 07/15/2023 with negative findings . She had a colonoscopy done in 2019 which only showed presence of hemorrhoids, repeat due again in 2029. She has frequent anxiety attacks and low mood, has been prescribed buspirone 5 mg but has only been taking it irregularly. Also has been having intermittent episodes of sharp pains on left side of the chest, and reports occasional numbness tingling going down left arm. Had EKGs done in the past all of which came back within normal limits, uncertain whether it is due to an anxiety attack. [facility] Medical History (Updated 08/08/24 @ 09:31 by Latosha Cherry MD) Adenomyosis of the uterus Irregular menstrual bleeding Left thyroid nodule Dyslipidemia Dyslipidemia (high LDL; low HDL) Vitamin D deficiency Lumbago with sciatica, right side Depression with anxiety Mild intermittent asthma COVID-19 virus infection Hemorrhoids Gastric ulcer Seasonal allergic rhinitis Menorrhagia IBS (irritable bowel syndrome) Surgical History History of esophagogastroduodenoscopy (EGD) H/O colonoscopy Hx of tubal ligation Family History Father No problems noted. Paternal Grandmother No problems noted. Paternal Uncle Mental health disorder Paternal Grandmother Mental health disorder Mother Mental health disorder Social History Housing: Apartment Alcohol intake: current Alcohol intake frequency: does not drink Patient Tobacco Use Status: Never used Tobacco e-Cigarette/Vaping Use: Never Used Second Hand Smoke Exposure: No service: No Current occupational status: employed Cognitive needs: No Hearing needs: No Vision needs: Yes Female Reproductive History Menstrual Duration of menses: other (Having irregular menstrual cycle) Date of last menstrual period: 08/08/24 control method: progestin IUCD Other: See Dr. Natalee España at [facility] Questionnaire PHQ-9 Over the last 2 weeks, how often have you been bothered by any of the following problems? 1. Little interest or pleasure in doing things: several days 2. Feeling down, depressed, or hopeless: several days 3. Trouble falling or staying asleep, or sleeping too much: more than half the days 4. Feeling tired or having little energy: more than half the days 5. Poor appetite or overeating: nearly every day 6. Feeling bad about yourself - or that you are a failure or have let yourself or your family down: several days 7. Trouble concentrating on things, such as reading the newspaper or watching television: several days 8. Moving or speaking so slowly that other people could have noticed. Or the opposite - being so fidgety or restless that you have been moving around a lot more than usual: not at all 9. Thoughts that you would be better off or of hurting yourself in some way: not at all Total score: 11 Depression Screening Interpretation: Positive (Currently on buspirone advised to increase dose to 3 times a day, currently being seen by therapist weekly) Depression Screening Follow-up: Existing condition, In treatment and Community Mental Health Worker F/U Depression Screening Done: Yes 28074 - PHQ-9 Billing: Yes Source: Developed by Drs. Jose Sanchez, Giselle Valdez, Jose Tabor and colleagues, with an educational declan from [employer]. Thrive Questionnaire Date Thrive assessed: 08/08/24 I am a: Patient What is your living situation today?: I have a steady place to live Within the past 12 months, did the food you bought not last and you didn't have the money to get more?: Sometimes True Within the past 12 months, did you worry whether your food would run out before you got money to buy more?: Sometimes True Do you have trouble paying for medicines?: I choose not to answer this question Do you have trouble getting transportation to medical appointments?: No Do you have trouble paying your heating and electricity bill?: I choose not to answer this question Do you have trouble taking care of your child, family member or friend?: I choose not to answer this question Do you have trouble with day-to-day activities such as bathing, preparing meals, shopping, managing finances, etc.?: No Are you currently unemployed and looking for a job?: No Are you interested in more education?: Yes Please select the resources that you would like help with: None Currently or been in a relationship where the following occur: No concerns reported THRIVE Score: 2 AUDIT C Alcohol Use Questionnaire (AUDIT-C) 1. How often do you have a drink containing alcohol?: Monthly or less 2. How many drinks containing alcohol do you have on a typical day when you are drinking?: 1 or 2 3. How often do you have six or more drinks on one occasion?: Never Total Score: 1 ANTWAN-7 AMB Questionnaire ANTWAN-7 Date ANTWAN - 7 assessed: 08/08/24 Feeling nervous, anxious, or on edge: 3 = Nearly every day Not being able to stop or control worryin = Nearly every day Worrying too much about different things: 3 = Nearly every day Trouble relaxin = More than half the days Being so restless that it is hard to sit still: 1 = Several days Becoming easily annoyed or irritable: 3 = Nearly every day Feeling afraid as if something awful might happen: 3 = Nearly every day Total ANTWAN-7 score (0-4 normal; 5-9 mild; 10-14 moderate; 15-21 severe): 18 Source: Developed by Drs. Jose Sanchez, Giselle Valdez, Jose Tabor and colleagues, with an educational declan from [employer]. ANTWAN-7 Assessment Billing ANTWAN-7 Assessment Tool: ANTWAN-7 Assessment 26779 Review of Systems Const Denies headache(s) and Denies malaise ENT Denies dysphagia, Denies dizziness, Denies headache(s), Denies hoarseness, Denies sinus pressure and Denies throat swelling Card Denies chest pain, Denies rapid heart rate, Denies irregular heart rhythm, Denies lightheadedness and Denies dyspnea Resp Denies chest congestion, Denies cough and Denies dyspnea GI Denies melena, Denies hematochezia, Denies dysphagia, Denies dyspepsia and Reports heartburn Reports no additional complaints Musc Reports no additional complaints Skin/Breast Denies rash Neuro Denies dizziness and Denies headache(s) Psych Reports as per HPI Endo Reports no additional complaints Trent/Lymph Denies easy bleeding and Denies easy bruising Aller/Immun Denies throat swelling Physical exam (Primary Care) Vital Signs: Last Vital Signs Pulse 97 08/08/24 08:41 Resp 16 08/08/24 08:41 BP 110/84 08/08/24 08:41 Pulse Ox 98 08/08/24 08:41 Oxygen Delivery Method Room Air 08/08/24 08:41 BMI result Body Mass Index 31.6 Tobacco/Smoking Status: Tobacco use Status Tobacco use date assessed 08/04/23 08/08/24 08:39 Patient Tobacco Use Status Never used Tobacco 08/08/24 08:39 e-Cigarette/Vaping Use Never Used 08/08/24 08:39 PHQ-9: PHQ-9 Score PHQ-9: Total score 11 08/08/24 09:33 Depression Screening Interpretation: Positive (Currently on buspirone advised to increase dose to 3 times a day, currently being seen by therapist weekly) Depression Screening Follow-up: Existing condition, In treatment and Community Mental Health Worker F/U Thrive Assessment: Date of Thrive Assessment Date Thrive assessed 08/08/24 08/08/24 08:39 Currently or been in a relationship where the following occur: No concerns reported Const Other: Alert oriented x3, no acute distress noted [facility] General nose exam: Normal external nose present Face and sinus: Yes face symmetric Mouth: Normal oral and palatal mucosa present, oropharynx normal and moist mucous membranes Eyes General: appearance normal, both eyes and all related structures Neck Neck: Yes full ROM, Yes no lymphadenopathy and Yes supple Resp Effort & Inspection: normal respiratory effort and able to speak in complete sentences Auscultation: clear to auscultation bilaterally Cardio Rate: regular rate Rhythm: regular rhythm Heart sounds: S1 normal heart sound present and S2 normal heart sound present GI Palpation (GI): Soft to palpation, no guarding and no masses General: Yes no CVA tenderness Back/Spine/Pelvis Back: no CVA tenderness and No back tenderness Skin General skin exam: no rashes or lesions noted Extrem General: Yes full ROM, Yes no joint enlargement, Yes no pedal edema and Yes normal gait Psych Appearance: grossly normal and well kempt Mental Status: mental status grossly normal Speech and movement: Normal speech and movement present Affect: normal affect Attitude: cooperative Thought process: Normal thought process present Thought content: Normal thought content present Coding Level of Care Code Est Pt Prev Care 40-64y(60536) Diagnoses Left thyroid nodule E04.1 Irritable bowel syndrome with predominant constipation K58.1 Vitamin D deficiency E55.9 Anxiety F41.9 Dyslipidemia E78.5 GERD (gastroesophageal reflux disease) K21.9 Irregular menstrual bleeding N92.6 Encounter for counseling regarding advance directives Z71.89 Annual visit for general adult medical examination with abnormal findings Z00.01 Chest pain of uncertain etiology R07.9 Adenomyosis of the uterus N80.03 Additional Codes ANTWAN-7 Assessment Billing - ANTWAN-7 Assessment Tool: ANTWAN-7 Assessment 80252 ([id number]) PHQ-9 - 67574 - PHQ-9 Billing: Yes ([id number]) Assessment & Plan Assessment & Plan (1) Left thyroid nodule: Comment: 0.6 x 0.4 x 0.6 cm, and a thyroid ultrasound done in 2021, no FNA biopsy or follow-up ultrasound recommended Code(s): E04.1 - Nontoxic single thyroid nodule Category: Medical Plan: Thyroid ultrasound ordered, as well as TSH, free T4 and thyroid peroxidase antibody (2) Irritable bowel syndrome with predominant constipation: Code(s): K58.1 - Irritable bowel syndrome with constipation Category: Medical Plan: Takes dicyclomine 10 mg twice a day as needed. Advised that she can increase dose to 4 times a day 15 units before eating and at bedtime, currently follows FODMAP diet (3) Vitamin D deficiency: Code(s): E55.9 - Vitamin D deficiency, unspecified Category: Medical Plan: Will check vitamin-D level (4) Anxiety: Code(s): F41.9 - Anxiety disorder, unspecified Category: Medical Plan: Advised to take her buspirone 5 mg 1 tablet 3 times a day , instead of once daily, sees therapist regularly (5) Dyslipidemia: Code(s): E78.5 - Hyperlipidemia, unspecified Category: Medical Plan: Fasting lipid panel ordered (6) GERD (gastroesophageal reflux disease): Code(s): K21.9 - Gastro-esophageal reflux disease without esophagitis Category: Medical Plan: Currently on omeprazole, followed by [facility] Dr. Grace (7) Irregular menstrual bleeding: Code(s): N92.6 - Irregular menstruation, unspecified Category: Medical Plan: Sees Dr. Natalee Arguello your at [facility], Mirena IUD inserted 3 weeks ago but patient states still having bleeding (8) Encounter for counseling regarding advance directives: Code(s): Z71.89 - Other specified counseling Plan: Initiated the conversation about Advanced Directives. Advanced Directives help patients prepare for current and future decisions about their medical treatment and place of care. Discussed with patient that it is a process where a patients current condition and prognosis are reviewed, their wishes for information regarding their illness are elicited, and likely medical dilemmas are presented and options discussed. Healthcare proxy form completed. The form can be amended as needed, reviewed yearly and make changes as needed (9) Annual visit for general adult medical examination with abnormal findings: Code(s): Z00.01 - Encounter for general adult medical examination with abnormal findings Plan: Will check appropriate labs. Recommended dental visit every 6 months and regular eye exams, at least every 2 years. Take adequate calcium in diet and vitamin-D 3 at 2000 IU per cap once a day, in addition to weight-bearing exercises to help maintain good muscle tone and weight control. Instructed to do self-breast exam, and continue with t yearly mammogram, already has an appointment at [facility] scheduled. She sees Dr. Natalee España at [facility] for her routine Pap pelvic exam and followed for her irregular menstrual cycles. She declines getting COVID vaccine or flu vaccine or Tdap. Up-to-date with her screening colonoscopy done by Dr. Grace done in 2019, repeat in 2029 (10) Irregular menstrual bleeding: Code(s): N92.6 - Irregular menstruation, unspecified Category: Medical Plan: Recent IUD inserted, but still having prolonged menstrual period. , followed by OBGYN at [facility] (11) Chest pain of uncertain etiology: Comment: with numbness and tingling down left arm Code(s): R07.9 - Chest pain, unspecified Category: Medical Plan: Has been having intermittent episodes of left-sided chest pain occasionally accompanied by numbness tingling going down left arm. Last EKG done in [facility] was within normal limits. Acute NM ruled out at that time at ER. referred to cardiology for further evaluation (12) Adenomyosis of the uterus: Code(s): N80.03 - Adenomyosis of the uterus Category: Medical Plan: Followed by Dr. España at [facility], with Mirena IUD recently inserted Orders: Orders US thyroid 08/08/24 E04.1 - Nontoxic single thyroid nodule Basic Metabolic Panel Fasting 08/08/24 E55.9 - Vitamin D deficiency, unspecified, E78.5 - Hyperlipidemia, unspecified, F41.9 - Anxiety disorder, unspecified, K21.9 - Gastro-esophageal reflux disease without esophagitis, K58.1 - Irritable bowel syndrome with constipation, K58.9 - Irritable bowel syndrome, unspecified, N92.6 - Irregular menstruation, unspecified, Z00.01 - Encounter for general adult medical examination with abnormal findings, Z71.89 - Other specified counseling Lipid Panel 08/08/24 E55.9 - Vitamin D deficiency, unspecified, E78.5 - Hype rlipidemia, unspecified, F41.9 - Anxiety disorder, unspecified, K21.9 - Gastro- esophageal reflux disease without esophagitis, K58.1 - Irritable bowel syndrome with constipation, K58.9 - Irritable bowel syndrome, unspecified, N92.6 - Irregular menstruation, unspecified, Z00.01 - Encounter for general adult medical examination with abnormal findings, Z71.89 - Other specified counseling Vitamin D 25-OH Total 08/08/24 E55.9 - Vitamin D deficiency, unspecified, E78.5 - Hyperlipidemia, unspecified, F41.9 - Anxiety disorder, unspecified, K21.9 - Gastro-esophageal reflux disease without esophagitis, K58.1 - Irritable bowel syndrome with constipation, K58.9 - Irritable bowel syndrome, unspecified, N92.6 - Irregular menstruation, unspecified, Z00.01 - Encounter for general adult medical examination with abnormal findings, Z71.89 - Other specified counseling Complete Blood Count Auto Diff 08/08/24 N92.6 - Irregular menstruation, unspecified Aspartate Amino Transferase 08/08/24 E55.9 - Vitamin D deficiency, unspecified, E78.5 - Hyperlipidemia, unspecified, F41.9 - Anxiety disorder, unspecified, K21.9 - Gastro-esophageal reflux disease without esophagitis, K58.1 - Irritable bowel syndrome with constipation, K58.9 - Irritable bowel syndrome, unspecified, N92.6 - Irregular menstruation, unspecified, Z00.01 - Encounter for general adult medical examination with abnormal findings, Z71.89 - Other specified counseling Alanine Aminotransferase 08/08/24 E55.9 - Vitamin D deficiency, unspecified, E78.5 - Hyperlipidemia, unspecified, F41.9 - Anxiety disorder, unspecified, K21.9 - Gastro-esophageal reflux disease without esophagitis, K58.1 - Irritable bowel syndrome with constipation, K58.9 - Irritable bowel syndrome, unspecified, N92.6 - Irregular menstruation, unspecified, Z00.01 - Encounter for general adult medical examination with abnormal findings, Z71.89 - Other specified coun seling Thyroid Stimulating Hormone 08/08/24 E55.9 - Vitamin D deficiency, unspecified, E78.5 - Hyperlipidemia, unspecified, F41.9 - Anxiety disorder, unspecified, K21.9 - Gastro-esophageal reflux disease without esophagitis, K58.1 - Irritable bowel syndrome with constipation, K58.9 - Irritable bowel syndrome, unspecified, N92.6 - Irregular menstruation, unspecified, Z00.01 - Encounter for general adult medical examination with abnormal findings, Z71.89 - Other specified counseling Free T4 (Free Thyroxine) 08/08/24 E55.9 - Vitamin D deficiency, unspecified, E78.5 - Hyperlipidemia, unspecified, F41.9 - Anxiety disorder, unspecified, K21.9 - Gastro-esophageal reflux disease without esophagitis, K58.1 - Irritable bowel syndrome with constipation, K58.9 - Irritable bowel syndrome, unspecified, N92.6 - Irregular menstruation, unspecified, Z00.01 - Encounter for general adult medical examination with abnormal findings, Z71.89 - Other specified counseling Thyroid Peroxidase Antibodies 08/08/24 E55.9 - Vitamin D deficiency, unspecified, E78.5 - Hyperlipidemia, unspecified, F41.9 - Anxiety disorder, unspecified, K21.9 - Gastro-esophageal reflux disease without esophagitis, K58.1 - Irritable bowel syndrome with constipation, K58.9 - Irritable bowel syndrome, unspecified, N92.6 - Irregular menstruation, unspecified, Z00.01 - Encounter for general adult medical examination with abnormal findings, Z71.89 - Other specified counseling Referrals Cardiology Referral R07.9 - Chest pain, unspecified
[2024-08-08 08:41] VITALS: BP 110/84; PULSE 97; RESP 16; O2SAT 98; BMI 31.6
--- OUTSIDE RECORDS SUMMARY | 2024-08-08 08:47 | XMS_ITS | Patient Health Record ---
Author Organization [facility] Address [address] [place] [address] [address] [place] [address] Care Team Providers Care Networking Administrator Name Role Phone TIERNEY TELLO Unavailable [phone] Allergies No Known Allergies Reason For Referral [...] day Active Vitamin D (Ergocalciferol) 1.25 MG (46189 UT) 1 capsule Orally Once a week [...] Date Coverage End Date YOLIE MEHTA [address] [place] [address] [id number] LEONARDO CALZADA Self - patient is the [...]
--- OUTSIDE RECORDS SUMMARY | 2024-08-08 08:48 | XMS_ITS | Clinical Summary ---
Author Organization [employer] Address [address] [facility] [address] [place] [address] Care Team Providers Care Ict Customer Support Officer Name Role Phone Unavailable Primary Care Provider [...] HPV mRNA E6/E7 Not Detected NOT DETECTED [facility] Comment: This test was performed using the APTIMA(R) HPV Assay ([employer] This assay detects E6/E7 viral messenger RNA (mRNA) from 14 high-risk HPV types (16,18,31,33,35,39,45,51, 52,56,58,59,66,68). For additional information please refer to: http://education.GEO'Supp.Solio/faq/FBA509e5 (This link is being provided for informational/ educational purposes only.) The analytical performance characteristics of this assay have been determined by [facility] [place], [place]. The modifications have not been cleared or approved by the FDA. This assay has been validated pursuant to the CLIA regulations and is used for clinical purposes. Test Performed by [facility], [facility], [address] [place] [address] Tin Pierre M.D., Ph.D., Director of Laboratories , CLIA [id number] Please note: ??Effective 01/12/2016, HPV testing will be performed using [employer]'s APTIMA test which targets mRNA. Detecting mRNA instead of DNA, as in older methods, offers significant improvements in specificity. 06/26/2019 3:53 PM EST us May Medina CNM HISTORICAL/NON ORDERABLE LABS Final Result [facility] [address] from Last 3 Months or Most Recently Relevant to Health Maintenance
--- OUTSIDE RECORDS SUMMARY | 2024-08-08 08:48 | XMS_ITS | Clinical Summary ---
Author Organization [facility] [address] [place] [address] [place] [phone] Phone Care Team Providers Care Electro Mechanical Assembler Name Role Phone Latosha Cherry MD Primary [...] EDT Procedure visit Obstetrics and Gynecology - [address] [phone] Natalee Neumann MD Prolonged menstruation (Primary Dx); examination or test, negative result 06/13/2024 11:15 AM EST Lab Draw Station - [address] Irregular menstrual cycle; Abnormal uterine bleeding (AUB) 06/13/2024 10:17 AM EST - 06/13/2024 11:59 PM EST Hospital Encounter Radiology Department - [address] [phone] Irregular menstrual cycle Discharge Disposition: Home or Self Care 05/11/2024 11:15 AM EST Office Visit Obstetrics and Gynecology - [address] [phone] Natalee Neumann MD Irregular menstrual cycle (Primary Dx); Right ovarian cyst from Last 3 Months Surgical History Surgery Date Site/Laterality Comments OTHER SURGICAL HISTORY PROCEDURE: MD LIG/TRNSXJ FLP TUBE ABDL/VAG APPR UNI/BI Medical History Medical History Date Comments IBS (irritable bowel syndrome) D X:IBS (irritable bowel syndrome) Hypercholesteremia DX:Hyperchole steremia Family History Medical History Relation Name Comments Breast cancer Aunt 1 maternal from [place] in her 40s Breast cancer Aunt 2 [...] for your loved ones. For example, child development consultant or elderly care for an older adult? [...] EDT Office Visit Obstetrics and Gynecology - [address] [phone] Natalee Neumann MD [address] [place], [place] Health Maintenance Due Date Last Done [...] age to complete this topic Meningococcal B Vaccine Aged Out No l onger eligible based on patient's age to complete [...] Signed Date: 06/13/2024 14:50 ET Workstation ID: [id number] Transcribed By: Self Edit Transcribed Date: 06/13/2024 [...] Signed Date: 06/13/2024 14:50 ET Workstation ID: [id number] Transcribed By: Self Edit Transcribed Date: 06/13/2024 14:45 ET us Natalee Neumann MD [facility] [place] Final Res ult * Thyroid stimulating hormone with reflex to free t4 and free t3 (06/13/2024 11:06 AM EST) TSH 0.66 0.40 - 4.00 mcIU/mL LAB CHEMISTRY METHOD 06/13/2024 3:33 PM EST [facility] Blood Venous blood specimen / Unknown Venipuncture / Unknown 06/13/2024 11:06 AM EST 06/13/2024 11:06 AM EST us Natalee Neumann MD LAB BLOOD ORDERABLES Final Result Performing Organization Address [facility]/ZIP Co de Phone Number [facility] [address] [place] [address], * Testosterone free, bioavailable and total (06/13/2024 11:06 AM EST) Testosterone 18 9 - 48 ng/dL LAB CHEMISTRY METHOD 06/13/2024 3:36 PM EST [facility] Testosterone, Free 0.3 0.0 - 0.5 ng/dL LAB CHEMISTRY METHOD 06/13/2024 3:36 PM EST [facility] Testosterone, Bioavailable 6 1 - 9 ng/dL LAB CHEMISTRY METHOD 06/13/2024 3:36 PM [facility] Sex Hormone Binding 43.2 See Comment nmol/L LAB CHEMISTRY METHOD 06/13/2024 3:36 PM EST [facility] Comment: FEMALES: ??pre-menopausal ?? 10.8 - [...] LAB CHEMISTRY METHOD 06/13/2024 3:36 PM EST [facility] Blood Venous blood specimen / Unknown Venipuncture / Unknown 06/13/2024 11:06 AM EST 06/13/2024 11:06 AM EST Natalee Neumann MD LAB BLOOD ORDERABLES Final Result Performing Organization Address City/[facility]/ZIP Co de Phone Number [facility] [address] [place] [address], * (ABNORMAL) Hemoglobin and hematocrit (06/13/2024 11:06 AM EST) [facility] Hemoglobin 10.5(L) 11.5 - 16.0 g/dL LAB HEMETOLOGY METHOD 06/13/2024 12:37 PM EST [facility] Hematocrit 34.7(L) 35.0 - 47.0 % LAB HEMETOLOGY METHOD 06/13/2024 12:37 PM EST [facility] Blood Venous blood specimen / Unknown Venipuncture / Unknown 06/13/2024 11:06 AM EST 06/13/2024 11:06 AM EST Radha GARY LAB BLOOD ORDERABLES Final R esult Performing Organization Address City/[facility]/ZIP Co de Phone Number [facility] [address] [place] [address], * Prolactin (06/13/2024 11:06 AM EST) [facility] Prolactin 17.00 See Comment ng/mL LAB CHEMISTRY METHOD 06/13/2024 3:29 PM EST [facility] Comment: Prolactin Reference Ranges (ng/mL) ??Non ?2.2 - ??30.3 ? 8.1 - 347.6 ??Postmenopausal 0.7 - ??31.5 Blood Venous blood specimen / Unknown Venipuncture / Unknown 06/13/2024 11:06 AM EST 06/13/2024 11:06 AM EST Natalee Neumann MD LAB BLOOD ORDERABLES Final Result [facility] [address] [place] [address], * Estradiol (06/13/2024 11:06 AM EST) [facility] Estradiol 248 See below pcg/mL LAB CHEMISTRY METHOD 06/13/2024 3:29 PM EST [facility] Comment: ESTRADIOL REFERENCE RANGES (PG/ML) FEMALES [...] Neumann MD LAB BLOOD ORDERABLES Final Result [facility]) [facility] [address] [place] [address], * Follicle stimulating hormone (06/13/2024 11:06 AM EST) [facility] Follicle Stimulating Hormone 12.1 See Comment mIU/mL LAB CHEMISTRY METHOD 06/13/2024 3:29 PM EST [facility] Comment: FSH REFERENCE RANGES (MIU/ML) FEMALES NORMALLY MENSTRUATING: FOLLICULAR PHASE ??2.3 - 12.6 MIDCYCLE PEAK ? 5.2 - 17.5 LUTEAL PHASE ?1.7 - ??9.5 POSTMENOPAUSAL: ON HRT ?5.9 - ??72.8 UNTREATED ?12.7 - 132.2 Blood Venous blood specimen / Unknown Venipuncture / Unknown 06/13/2024 11:06 AM EST 06/13/2024 11:06 AM EST Natalee Neumann MD LAB BLOOD ORDERABLES Final Result [facility] [address] [place] [address], * Cervical Cancer Screening: HPV (12/20/2023) [facility] Cervical Cancer Screening: HPV Negative, Abstracted Historical Provider HEALTH MAINTENANCE Final Result from Last 3 Months or Most Recently Relevant to Health Maintenance Insurance [facility] PUBLIC [employer] Care Teams Electro Mechanical Assembler Relationship Specialty Start Date End Date Latosha Cherry MD [address] [place] [address] PCP - General 11/17/23
== END 2024-08-08 09:30 | disposition home or self-care (01) ==
LOC: HO.HMCC 08:34
PROVIDERS: PCP Internal Medicine; Visit Provider Internal Medicine
DX: E04.1 Nontoxic single thyroid nodule (principal); K58.1 Irritable bowel syndrome with constipation; E55.9 Vitamin D deficiency, unspecified; F41.9 Anxiety disorder, unspecified; E78.5 Hyperlipidemia, unspecified; K21.9 Gastro-esophageal reflux disease without esophagitis; N92.6 Irregular menstruation, unspecified; Z71.89 Other specified counseling; Z00.01 Encounter for general adult medical examination with abnormal findings; R07.9 Chest pain, unspecified; N80.03 Adenomyosis of the uterus

== ENCOUNTER → 2024-08-08 08:33 | Outpatient (BNVA) | payer OTHER, SELFPAY | PROVIDERS: PCP Internal Medicine; Visit Provider Internal Medicine | DX: Z00.01 Encounter for general adult medical examination with abnormal findings (principal); E78.5 Hyperlipidemia, unspecified; E04.1 Nontoxic single thyroid nodule; K58.1 Irritable bowel syndrome with constipation; N92.6 Irregular menstruation, unspecified; E55.9 Vitamin D deficiency, unspecified; F41.9 Anxiety disorder, unspecified; K21.9 Gastro-esophageal reflux disease without esophagitis; R07.9 Chest pain, unspecified; N80.03 Adenomyosis of the uterus; Z71.89 Other specified counseling | CPT/HCPCS: 96127; 99396 ==

== ENCOUNTER 2024-09-05 11:34 | Outpatient (REF) | payer OTHER, SELFPAY ==
--- NOTE | ~2024-09-05 | US_ITS ---
EXAMINATION: US THYROID HISTORY: E04.1 - Nontoxic single thyroid nodule TECHNIQUE: Real-time grayscale ultrasound imaging was performed and images were reviewed. COMPARISON: Comparison is made with the prior examination dated 12/07/2021. FINDINGS: SIZE: The right thyroid lobe measures 8.0 x 2.6 x 3.0 cm. The left thyroid lobe measures 6.8 x 2.0 x 2.8 cm. The isthmus measures 8 mm. FLOW: Flow to the gland is normal. ECHOGENICITY: The echotexture of the gland is homogeneous. NODULES: Again seen is a 6 x 4 x 8 mm spongiform nodule in the midportion of the left thyroid lobe. No suspicious nodules are identified. US/US thyroid IMPRESSION: Diffusely enlarged thyroid gland with a stable spongiform 6 x 4 x 8 mm spongiform nodule in the left lobe. ACR TI-RADS Guidelines TR1 (0 points): Benign, No follow-up or biopsy required TR2 (2 points): Not Suspicious, No biopsy or follow up indicated TR3 (3 points): Mildly Suspicious, FNA if >= 2.5 cm, Follow if >= 1.5 cm TR4 (4-6 points): Moderately Suspicious, FNA if >= 1.5 cm, Follow if >= 1.0 cm TR5 (>=7 points): Highly Suspicious, FNA if >= 1.0 cm, Follow if >= 0.5 cm Electronically signed by: Jose Yeung MD 09/05/2024 12:41 PM EDT
--- OUTSIDE RECORDS SUMMARY | 2024-09-05 13:01 | XMS_ITS | Patient Health Record ---
Author Organization [facility] Address [address] [place] [address] [address] [place] [address] Care Team Providers Care Hepatology Physician Name Role Phone TIERNEY TELLO Unavailable [phone] Allergies No Known Allergies Reason For Referral [...] day Active Vitamin D (Ergocalciferol) 1.25 MG (59551 UT) 1 capsule Orally Once a week [...] Date Coverage End Date YOLIE MEHTA [address] [place] [address] [id number] LEONARDO CALZADA Self - patient is the [...]
--- OUTSIDE RECORDS SUMMARY | 2024-09-05 13:01 | XMS_ITS | Clinical Summary ---
Author Organization [employer] Address [address] [facility] 7[address] [place] [address] Care Team Providers Care Broommaker Name Role Phone Unavailable Primary Care Provider [...] HPV mRNA E6/E7 Not Detected NOT DETECTED [facility] Comment: This test was performed using the APTIMA(R) HPV Assay ([employer] This assay detects E6/E7 viral messenger RNA (mRNA) from 14 high-risk HPV types (16,18,31,33,35,39,45,51, 52,56,58,59,66,68). For additional information please refer to: http://education.BDA.[employer]faq/ESD003y0 (This link is being provided for informational/ educational purposes only.) The analytical performance characteristics of this assay have been determined by [facility] [place], [place]. The modifications have not been cleared or approved by the FDA. This assay has been validated pursuant to the CLIA regulations and is used for clinical purposes. Test Performed by [facility], [facility], [address] [place] [address] Tin Pierre M.D., Ph.D., Director of Laboratories , CLIA [id number] Please note: ??Effective 01/12/2016, HPV testing will be performed using [employer]'s APTIMA test which targets mRNA. Detecting mRNA instead of DNA, as in older methods, offers significant improvements in specificity. 06/26/2019 3:53 PM EST us May Medina CNM HISTORICAL/NON ORDERABLE LABS Final Result [facility] [address] from Last 3 Months or Most Recently Relevant to Health Maintenance
--- OUTSIDE RECORDS SUMMARY | 2024-09-05 13:01 | XMS_ITS | Clinical Summary ---
Author Organization [facility] [address] [facility] Address [address] [place] [address] Phone Care Team Providers Care Patient Escort Name Role Phone Latosha Cherry MD Primary [...] SHORTNESS OF BREATH OR WHEEZING 4 Active Active Problems Problem Noted Date Diagnosed Date Lesion of endometrium 08/23/2024 Assessment & Plan (08/23/2024 9:13 AM EDT): Removed and sent for pathology. Explained likelihood that this is a benign endometrial case with patient. She was in agreement. IUD (intrauterine device) in place 08/23/2024 Irregular menstrual cycle 05/11/2024 Assessment & Plan [...] about Mirena to review in the meantime. Assessment & Plan (08/23/2024 9:13 AM EDT): Likely to continue to improve and or stop over time given the endometrium is likely thinning in the first 3-[address]. She will monitor. Return in early September. Right ovarian cyst 12/14/2023 Overview (04/03/2024): Last Assessment & Plan: Explained this is likely physiologic and will resolve spontaneously. She will have repeat US 8 weeks from last. She agrees to schedule this. Assessment & Plan (05/11/2024 7:35 PM EST): Follow up US ordered for early Jun. Anemia 12/01/2023 Encounters Date Type Department Care Team Description 08/23/2024 8:45 AM EDT Office Visit Obstetrics and Gynecology - [address] [phone] Natalee Neumann MD IUD (intrauterine device) in place (Primary Dx); Lesion of endometrium; Prolonged menstruation 07/11/2024 11:15 AM EDT Procedure visit Obstetrics and Gynecology - [address] [phone] Natalee Neumann MD Prolonged menstruation (Primary Dx); examination or test, negative result 06/13/2024 11:15 AM EST Lab Draw Station - [address] Irregular menstrual cycle; Abnormal uterine bleeding (AUB) 06/13/2024 10:17 AM EST - 06/13/2024 11:59 PM EST Hospital Encounter Radiology Department - [address] [phone] Irregular menstrual cycle Discharge Disposition: Home or Self Care from Last 3 Months Surgical History Surgery Date Site/Laterality Comments OTHER SURGICAL HISTORY PROCEDURE: DE LIG/TRNSXJ FLP TUBE ABDL/VAG APPR UNI/BI Medical History Medical History Date Comments IBS (irritable bowel syndrome) D X:IBS (irritable bowel syndrome) Hypercholesteremia DX:Hyperchole steremia Family History Medical History Relation Name Comments Breast cancer Aunt 1 maternal from [facility] in her 40s Breast cancer Aunt 2 [...] for your loved ones. For example, child psychometrist or elderly care for an older adult? [...] Sign Reading Time Taken Comments Blood Pressure 104/77 08/23/2024 8:50 AM EDT Pulse 87 08/23/2024 8:50 AM EDT Temperature 37.3 ??C (99.1 ??F) 04/08/2024 10:[address] Respiratory Rate 18 07/11/2024 11:24 AM EDT Oxygen Saturation 100% 04/08/2024 5:27 PM EST Inhaled Oxygen Concentration - - Weight 83.7 kg (184 lb 9.6 oz) 08/23/2024 8:50 A M EDT Height 162.6 cm (5' 4 ) 07/11/2024 11:24 AM EDT Body Mass Index 31.69 07/11/2024 11:24 AM EDT Plan of Treatment Upcoming Encounters Date Type Department Care Team (Late st Contact Info) Description 10/04/2024 8:45 AM EDT Office Visit Obstetrics and Gynecology [address] [phone] Natalee Neumann MD [address] [place], [place] Health Maintenance Due Date Last Done Comments Breast Cancer Screening 1978 DTaP,Tdap,and Td Vaccines (1 - Tdap) 1997 Hepatitis B Vaccines (1 of 3 - 19+ 3-dose series) 1997 Colorectal Cancer Screening: Colonoscopy 05/27/2023 HIV Screening 05/27/2023 Hepatitis C Screening 05/27/2023 COVID-19 Vaccine (3 - 2023-2 5 season) 2024 11/30/2020, 11/07/2020 Influenza Vaccine (Season Ended) 2024 Depression Screening 07/11/2025 07/11/2024 Social Influencers [...] Procedure Name Priority Date/Time Associated Diagnosis Comments TISSUE EXAM Routine 08/23/2024 9:12 AM EDT Lesion of endometrium POC , URINE DIAGNOSTIC Routine 07/11/2024 11:36 [...] Recently Relevant to Health Maintenance Results * Tissue exam (08/23/2024 9:12 AM EDT) Final Diagnosis Endometrial biopsy: Necrotic and inflamed decidua/pseudo-d ecidualized endometrium No trophoblastic tissue identified No viable endometrium identified 08/27/2024 10:16 AM EDT [facility] Comment Given the patient's history of a Mirena IUD, this likely represents necrotic endometrium with progestin effect giving the pseudo-deciduali zed appearance. 08/27/2024 10:16 AM EDT [facility] Clinical Information Lesion of endometrium N85.9 08/27/2024 10:16 AM EDT [facility] Gross Description A. Endometrium, biopsy: Labeled Endo . Received in formalin is a 5.3 x 1.1 x 0.3 cm dusky leon-brown softened tissue fragment admixed with a 0.6 cm aggregate of irregular dusky astorga tissue fragments. The largest fragment is bisected. The specimen is entirely submitted in two cassettes, one piece and multiple pieces, respectively, x 2. DUNCAN 08/27/2024 10:16 AM EDT [facility] Disclaimer Unless otherwise specified, all tissue is 10% NB formalin fixed and paraffin embedded. 08/27/2024 10:16 AM EDT [facility] Tissue Endometrial structure / Unknown Non-blood Collection / Unknown 08/23/2024 9:12 AM EDT 08/23/2024 9:12 AM EDT us Natalee Neumann MD LAB PATHOLOGY ORDERABLES Fi nal Result [facility] [address] [place] [address], * (ABNORMAL) POC , urine manually resulted [...] Signed Date: 06/13/2024 14:50 ET Workstation ID: [id number] Transcribed By: Self Edit Transcribed Date: 06/13/2024 [...] Signed Date: 06/13/2024 14:50 ET Workstation ID: [id number] Transcribed By: Self Edit Transcribed Date: 06/13/2024 14:45 ET us Natalee Neumann MD [facility] [place] PROCEDURES Final Res ult * Thyroid [...] Final Result [facility] [address] [place] [address], [place] [phone] * Testosterone free, bioavailable and total (06/13/2024 11:06 AM EST) Testosterone 18 9 - 48 ng/dL LAB CHEMISTRY METHOD 06/13/2024 3:36 PM [facility] Testosterone, Free 0.3 0.0 - 0.5 ng/dL LAB CHEMISTRY METHOD 06/13/2024 3:36 PM [facility] Testosterone, Bioavailable 6 1 - 9 ng/dL LAB CHEMISTRY METHOD 06/13/2024 3:36 PM [facility] Sex Hormone Binding 43.2 See Comment nmol/L LAB CHEMISTRY METHOD 06/13/2024 3:36 PM [facility] Comment: FEMALES: ??pre-menopausal ?? 10.8 [...] g/dL LAB CHEMISTRY METHOD 06/13/2024 3:36 PM [facility] Blood Venous blood specimen / Unknown Venipuncture / Unknown 06/13/2024 11:06 AM EST 06/13/2024 11:06 AM EST Natalee Neumann MD LAB BLOOD ORDERABLES Final Result Performing Organization Address [facility] de Phone Number [facility] [address] [place] [address], * (ABNORMAL) Hemoglobin and hematocrit (06/13/2024 11:06 AM EST) Hemoglobin 10.5(L) 11.5 - 16.0 g/dL LAB HEMETOLOGY METHOD 06/13/2024 12:37 PM EST [facility] Hematocrit 34.7(L) 35.0 - 47.0 % LAB HEMETOLOGY METHOD 06/13/2024 12:37 PM EST [facility] Blood Venous blood specimen / Unknown Venipuncture / Unknown 06/13/2024 11:06 AM EST 06/13/2024 11:06 AM EST Radha GARY LAB BLOOD ORDERABLES Final R esult Performing Organization Address [facility] de Phone Number [facility] [address] [place] [address], * Prolactin (06/13/2024 11:06 AM EST) Prolactin 17.00 See Comment ng/mL LAB CHEMISTRY METHOD 06/13/2024 3:29 PM EST [facility] Comment: Prolactin Reference Ranges (ng/mL) ??Non ?2.2 - ??30.3 ? 8.1 - 347.6 ??Postmenopausal 0.7 - ??31.5 Blood Venous blood specimen / Unknown Venipuncture / Unknown 06/13/2024 11:06 AM EST 06/13/2024 11:06 AM EST Natalee Neumann MD LAB BLOOD ORDERABLES Final Result Performing Organization Address City/[facility]/ZIP Co de Phone Number [facility] [address] [place] [address], * Estradiol (06/13/2024 11:06 AM EST) Estradiol 248 See below pcg/mL LAB CHEMISTRY [...] Final Result [facility] [address] [place] [address], * Follicle stimulating hormone (06/13/2024 11:06 AM EST) [facility] Follicle Stimulating Hormone 12.1 See Comment [...] Neumann MD LAB BLOOD ORDERABLES Final Result [facility] [address] [place] [address], * Cervical Cancer Screening: HPV (12/20/2023) Pathologist [facility] Cervical Cancer Screening: HPV Negative, Abstracted Historical Provider HEALTH MAINTENANCE Final Result from Last 3 Months or Most Recently Relevant to Health Maintenance Insurance [facility] [employer] Care Teams Patient Escort Relationship Specialty Start Date End Date Latosha Cherry MD [address] [place] [address] PCP - General Internal Medicine 08/22/24
== END 2024-09-05 11:35 | disposition home or self-care (01) ==
LOC: HO.HMGCX 11:34
PROVIDERS: PCP Internal Medicine; Visit Provider Internal Medicine
DX: E04.1 Nontoxic single thyroid nodule (principal)
CPT/HCPCS: 76536

== ENCOUNTER → 2024-09-05 11:37 | Outpatient (BNV) | payer OTHER, SELFPAY | PROVIDERS: PCP Internal Medicine; Visit Provider Radiology Diagnostic Radiology | DX: E04.1 Nontoxic single thyroid nodule (principal) | CPT/HCPCS: 76536 ==

== ENCOUNTER 2024-09-12 09:10 | Outpatient (REF) | payer OTHER, SELFPAY ==
--- OUTSIDE RECORDS SUMMARY | 2024-09-12 09:39 | XMS_ITS | Patient Health Record ---
Author Organization [facility] Address [address] [place] [address] [address] [place] [address] Care Team Providers Care Maintenance Construction Helper Name Role Phone TIERNEY TELLO Unavailable [phone] Allergies No Known Allergies Reason For Referral [...] day Active Vitamin D (Ergocalciferol) 1.25 MG (05495 UT) 1 capsule Orally Once a week [...] Date Coverage End Date YOLIE MEHTA [address] [place] [address] [id number] LEONARDO CALZADA Self - patient is the [...]
--- OUTSIDE RECORDS SUMMARY | 2024-09-12 09:39 | XMS_ITS | Clinical Summary ---
Author Organization [facility] [address] [facility] Address [address] [place], [place] Phone Care Team Providers Care Digital Art Director Name Role Phone Latosha Cherry MD Primary [...] EDT Office Visit Obstetrics and Gynecology - [address] [phone] Natalee Neumann MD IUD (intrauterine device) in place (Primary Dx); Lesion of endometrium; Prolonged menstruation 07/11/2024 11:15 AM EDT Procedure visit Obstetrics and Gynecology - [address] [phone] Natalee Neumann MD Prolonged menstruation (Primary Dx); examination or test, negative result from Last 3 Months Surgical History Surgery Date Site/Laterality Comments OTHER SURGICAL HISTORY PROCEDURE: [place] LIG/TRNSXJ FLP TUBE ABDL/VAG APPR UNI/BI Medical History Medical History Date Comments IBS (irritable bowel syndrome) D X:IBS (irritable bowel syndrome) Hypercholesteremia DX:Hyperchole steremia Family History Medical History Relation Name Comments Breast cancer Aunt 1 maternal from [facility] in her 40s Breast cancer Aunt 2 [...] care for your loved ones. For example, early childhood teacher or elderly care for an older adult? [...] EDT Office Visit Obstetrics and Gynecology - [address] [phone] Natalee Neumann MD [address] [place], [place] Health Maintenance Due Date Last Done [...] AM EDT examination or test, negative result HM HPV Routine 12/20/2023 from Last 3 Months or Most Recently Relevant to Health Maintenance Results * Tissue exam (08/23/2024 9:12 AM EDT) Final Diagnosis Endometrial biopsy: Necrotic and inflamed decidua/pseudo-d ecidualized endometrium No trophoblastic tissue identified No viable endometrium identified 08/27/2024 10:16 AM EDT [facility] Comment Given the patient's history of a Mirena IUD, this likely represents necrotic endometrium with progestin effect giving the pseudo-deciduali zed appearance. 08/27/2024 10:16 AM EDT [facility] Clinical Information Lesion of endometrium N85.9 08/27/2024 10:16 AM EDT [facility] Gross Description A. Endometrium, biopsy: Labeled Endo . Received in formalin is a 5.3 x 1.1 x 0.3 cm dusky leon-brown softened tissue fragment admixed with a 0.6 cm aggregate of irregular dusky astorga tissue fragments. The largest fragment is bisected. The specimen is entirely submitted in two cassettes, one piece and multiple pieces, respectively, x 2. DUNCAN 08/27/2024 10:16 AM EDT [facility] Disclaimer Unless otherwise specified, all tissue is 10% NB formalin fixed and paraffin embedded. 08/27/2024 10:16 AM EDT [facility] Tissue Endometrial structure / Unknown Non-blood Collection / Unknown 08/23/2024 9:12 AM EDT 08/23/2024 9:12 AM EDT us Natalee Neumann MD LAB PATHOLOGY ORDERABLES Fi nal Result [facility] [address] [place] [address], [place] [phone] * (ABNORMAL) POC , urine manually resulted (07/11/2024 11:36 AM EDT) Pathologist [facility] HCG, Ur POC Negative Negative POC hCG Int QC Pass? Yes Yes Urine Urine specimen obtained by clean catch procedure / Unknown 07/11/2024 11:36 AM EDT Natalee Neumann MD POINT OF CARE TEST ENTER/ED IT ORDERABLES Final Result * Cervical Cancer Screening: HPV (12/20/2023) Pathologist [facility] Cervical Cancer Screening: HPV Negative, Abstracted Akilah Parkinson MD HEALTH MAINTENANCE Final Result from Last 3 Months or Most Recently Relevant to Health Maintenance Insurance [facility] [place] [id number] Care Teams Digital Art Director Relationship Specialty Start Date End Date Latosha Cherry MD [address] [place] [address] PCP - General Internal Medicine 08/22/24
--- OUTSIDE RECORDS SUMMARY | 2024-09-12 09:39 | XMS_ITS | Clinical Summary ---
Author Organization [facility] Address [address] [place] [address] Care Team Providers Care Ict Sales Assistant Name Role Phone Unavailable Primary Care Provider [...] HPV mRNA E6/E7 Not Detected NOT DETECTED [facility] Comment: This test was performed using the APTIMA(R) HPV Assay ([employer] This assay detects E6/E7 viral messenger RNA (mRNA) from 14 high-risk HPV types (16,18,31,33,35,39,45,51, 52,56,58,59,66,68). For additional information please refer to: http://education.[employer].Virtuata/faq/XFT291y7 (This link is being provided for informational/ educational purposes only.) The analytical performance characteristics of this assay have been determined by [facility] [place], [place]. The modifications have not been cleared or approved by the FDA. This assay has been validated pursuant to the CLIA regulations and is used for clinical purposes. Test Performed by [facility], [facility], [address] [place] [address] Tin Pierre M.D., Ph.D., Director of Laboratories , CLIA [id number] Please note: ??Effective 01/12/2016, HPV testing will be performed using [employer]'s APTIMA test which targets mRNA. Detecting mRNA instead of DNA, as in older methods, offers significant improvements in specificity. 06/26/2019 3:53 PM EST us May Medina CNM HISTORICAL/NON ORDERABLE LABS Final Result [facility] [address] from Last 3 Months or Most Recently Relevant to Health Maintenance
== END 2024-09-12 09:11 | disposition home or self-care (01) ==
LOC: HO.MAMMO 09:10
PROVIDERS: PCP Internal Medicine; Visit Provider Internal Medicine
DX: Z12.31 Encounter for screening mammogram for malignant neoplasm of breast (principal)
CPT/HCPCS: 77063; 77067

== ENCOUNTER → 2024-09-12 09:15 | Outpatient (BNV) | payer OTHER, SELFPAY | PROVIDERS: PCP Internal Medicine; Visit Provider Internal Medicine | DX: Z12.31 Encounter for screening mammogram for malignant neoplasm of breast (principal) | CPT/HCPCS: 77063; 77067 ==

== ENCOUNTER 2024-10-11 08:54 | Outpatient (AMB) | payer OTHER, SELFPAY ==
--- NOTE | 2024-10-11 08:58 | A.OFFPC_ITS ---
Vital Signs 10/11/24 09:00 Height 5 ft 4 in Weight 189 lb BMI 32.4 BP 100/70 Blood Pressure Location Rt brachial Position Sitting Respiration 16 Pulse 88 Pulse Source Pulse Oximeter Temp 98.5 F Temp Source Oral Pulse Oximetry (%) 97 Oxygen Delivery Method Room Air Intake Visit Reasons: pinched nerve Lt shoulder & rib cage inf. [facility] Intake Note: Pt is here today for info on pinched nerve. Allergies prednisone Adverse Reaction (Intermediate, Verified 10/11/24 09:23) vaginal bleeding pollen Allergy (Mild, Uncoded 08/08/24 08:55) Itchy Eyes Tobacco use date assessed: 10/11/24 Dental Screening Dental Screen Date: 10/11/24 Did you have a dental visit in the last 12 months?: Yes Did you have a dental problem in the last 6 months where you did not have access to dental care?: No Was dental information given to patient?: Patient has dentist HPI HPI Comments History of Present Illness Details History of Present Illness - The patient is a 43-year-old female pr esenting for a hospital discharge follow up with left-sided neck, chest, and arm pain. - The patient visited the [facility] Emergency Department on September 27 with these complaints, where an EKG showed no acute changes, and a chest x-ray was negative for acute findings, troponins were flat and labs were all normal. She was discharged with costochondral pain, cervical radiculopathy and prescri bed a Solu-medrol dose arline and 10mg flexeril which she took but she ended up with vaginal bleeding and the flexeril made her too tired. So she has been taking the flexeril only at night bc she has to remain functional during the day. - The pain began one week prior to the v isit and was described as sharp, originating in the left shoulder and chest, radiating down the left arm to the fingertips. - Treponin levels were negative, and oth er laboratory tests were normal. - The patient reports that the pain vari es with activity and the type of bra worn, with less pain when not wearing a bra. - The patient has a history of IBS and r eports a hormonal imbalance, has an IUD to manage bleeding with spotting occurring after starting steroids. Physical Exam General: Cooperative, healthy appearing, comfortable, no acute distress and well developed Orientation: Patient oriented x3 Limitations: No limitations Head: Normal to inspection Ears: Hearing grossly normal bilaterally Nose: Normal External nose present Face and sinus: Normal facial exam Eyes: Appearance normal, both eyes and all related structures Neck: Normal visual inspection and Yes full ROM Respiratory: Normal respiratory effort and able to speak in complete sentences. Skin: No rashes or lesions noted Neuro: Patient oriented x3 Extremities: Normal to inspection [facility] Medical History (Updated 10/11/24 @ 09:29 by Ronda John PA-C) Adenomyosis of the uterus Irregular menstrual bleeding Left thyroid nodule Dyslipidemia Dyslipidemia (high LDL; low HDL) Vitamin D deficiency Lumbago with sciatica, right side Depression with anxiety Mild intermittent asthma COVID-19 virus infection Hemorrhoids Gastric ulcer Seasonal allergic rhinitis Menorrhagia IBS (irritable bowel syndrome) Surgical History History of esophagogastroduodenoscopy (EGD) H/O colonoscopy Hx of tubal ligation Family History Father No problems noted. Paternal Grandmother No problems noted. Paternal Uncle Mental health disorder Paternal Grandmother Mental health disorder Mother Mental health disorder Social History Housing: Apartment Alcohol intake: current Alcohol intake frequency: does not drink Patient Tobacco Use Status: Never used Tobacco e-Cigarette/Vaping Use: Never Used Second Hand Smoke Exposure: No service: No Current occupational status: employed Cognitive needs: No Hearing needs: No Vision needs: Yes Questionnaire Thrive Questionnaire Date Thrive assessed: 08/08/24 I am a: Patient What is your living situation today?: I have a steady place to live Within the past 12 months, did the food you bought not last and you didn't have the money to get more?: Sometimes True Within the past 12 months, did you worry whether your food would run out before you got money to buy more?: Sometimes True Do you have trouble paying for medicines?: I choose not to answer this question Do you have trouble getting transportation to medical appointments?: No Do you have trouble paying your heating and electricity bill?: I choose not to answer this question Do you have trouble taking care of your child, family member or friend?: I choose not to answer this question Do you have trouble with day-to-day activities such as bathing, preparing meals, shopping, managing finances, etc.?: No Are you currently unemployed and looking for a job?: No Are you interested in more education?: Yes Please select the resources that you would like help with: None Currently or been in a relationship where the following occur: No concerns reported THRIVE Score: 2 ANTWAN-7 AMB Questionnaire ANTWAN-7 Date ANTWAN - 7 assessed: 08/08/24 Source: Developed by Drs. Jose Sanchez, Giselle Valdez, Jose Tabor and colleagues, with an educational declan from [employer]. Physical exam (Primary Care) Vital Signs: Last Vital Signs Temp 98.5 F 10/11/24 09:00 Pulse 88 10/11/24 09:00 Resp 16 10/11/24 09:00 BP 100/70 10/11/24 09:00 Pulse Ox 97 10/11/24 09:00 Oxygen Delivery Method Room Air 10/11/24 09:00 BMI result Body Mass Index 32.4 Tobacco/Smoking Status: Tobacco use Status Tobacco use date assessed 10/11/24 10/11/24 09:05 Patient Tobacco Use Status Never used Tobacco 10/11/24 09:05 e-Cigarette/Vaping Use Never Used 10/11/24 09:05 Thrive Assessment: Date of Thrive Assessment Date Thrive assessed 08/08/24 10/11/24 09:05 Currently or been in a relationship where the following occur: No concerns reported Coding Level of Care Code Est Pt Level 4 (61908) Diagnoses Strain of left trapezius muscle, initial encounter S46.812A Encounter type: initial encounter Assessment & Plan Assessment & Plan (1) Strain of left trapezius muscle: Code(s): S46.812A - Strain of other muscles, fascia and tendons at shoulder and upper arm level, left arm, initial encounter Category: Medical Qualifiers: Encounter type: initial encounter Qualified Code(s): S46.812A - Strain of other muscles, fascia and tendons at shoulder and upper arm level, left arm, initial encounter Plan: Plan - Prescribe meloxicam, a nonsteroidal anti-inflammatory drug, to be taken once daily for two to three days to manage inflammation and pain, then as needed. - Adjust cyclobenzaprine dosage to 5 mg (from 10mg) to reduce drowsiness while managing muscle spasms. - Ordered physical therapy to address neck and shoulder pain and provide guidance on reducing pressure from bras. - Added prednisone to the patient's allergy list due to adverse reaction causing vaginal spotting. Patient was informed and verbally consented to the use of an ambient scribe for clinic note documentation during this visit. Orders: Orders PT Evaluation and Treatment Today M54.2 - Cervicalgia, S46.812A - Strain of other muscles, fascia and tendons at shoulder and upper arm level, left arm, initial encounter Medications: New cyclobenzaprine 5 mg PO Q8H PRN 20 tabs 0RF Muscle Spasm meloxicam 15 mg PO DAILY PRN 15 tabs 0RF pain, moderate Discontinued fluticasone propionate 50 mcg/actuation administer into each nostril Discontinued Reason: Doctor's Order 1 spray intranasal DAILY 16 grams 1RF J30.2 - Other seasonal allergic rhinitis
[2024-10-11 09:00] VITALS: BP 100/70; PULSE 88; RESP 16; TEMP 36.9; O2SAT 97; BMI 32.4
--- OUTSIDE RECORDS SUMMARY | 2024-10-11 09:28 | XMS_ITS | Clinical Summary ---
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 15 tablet 5 Active methylPREDNISol one (MEDROL DOSPAK) 4 mg tablet Take 1 tablet by mouth as directed on the package. 21 tablet 5 10/04/19 25 Active Problems Problem Noted Date Diagnosed Date [...] Last Assessment & Plan: I explained to Leonardo that, based on her history and her [...] Encounters Date Type Department Care Team Description 10/04/2024 8:45 AM EDT Office Visit Obstetrics and Gynecology - [address] [phone] Natalee Neumann MD IUD (intrauterine device) in place (Primary Dx); Prolonged menstruation 09/27/2024 12:12 AM EDT - 09/27/2024 3:05 AM EDT Emergency [facility] Emergency [address] [place] [id number] Ioana Goodman MD Costochondral chest pain (Primary Dx); Cervical radiculopathy Discharge Disposition: Home or Self Care 08/23/2024 8:45 AM EDT Office Visit Obstetrics and Gynecology - [address] [phone] Natalee Neumann MD IUD (intrauterine device) in place (Primary Dx); Lesion of endometrium; Prolonged menstruation 07/11/2024 11:15 AM EDT Procedure visit Obstetrics and Gynecology [address] [phone] Natalee Neumann MD Prolonged menstruation (Primary Dx); examination or test, negative result from Last 3 Months Surgical History Surgery Date Site/Laterality Comments OTHER SURGICAL HISTORY PROCEDURE: SD LIG/TRNSXJ FLP TUBE ABDL/VAG APPR UNI/BI Medical History Medical History Date Comments IBS (irritable bowel syndrome) D X:IBS (irritable bowel syndrome) Hypercholesteremia DX:Hyperchole steremia Family History Medical History Relation Name Comments Breast cancer Aunt [address] [place] in her 40s Breast cancer Aunt 2 [...] your loved ones. For example, early childhood associate or elderly care for an older adult? [...] Sign Reading Time Taken Comments Blood Pressure 108/76 10/04/2024 8:50 AM EDT Pulse 98 10/04/2024 8:50 AM EDT Temperature 36.6 ??C (97.8 ??F) 09/26/2024 1 1:07 PM EDT Respiratory Rate 18 09/26/2024 11:0 7 PM EDT Oxygen Saturation 99% 09/26/2024 11: 07 PM EDT Inhaled Oxygen Concentration - - Weight 86.5 kg (190 lb 12.8 oz) 10/04/2024 8:50 AM EDT Height 160 cm (5' 3 ) 09/26/2024 11:07 PM EDT Body Mass Index 33.8 09/26/2024 11:07 PM EDT Plan of Treatment Health Maintenance Due Date Last Done Comments Breast Cancer Screening 1978 DTaP,Tdap,and Td Vaccines (1 - Tdap) 1997 Hepatitis B Vaccines (1 of 3 - 19+ 3-dose series) 1997 Colorectal Cancer Screening: Colonoscopy 05/27/2023 HIV Screening 05/27/2023 Hepatitis C Screening 05/27/2023 COVID-19 Vaccine ( - 2023-2 5 season) 2024 11/30/2020, 11/07/2020 [...] Procedure Name Priority Date/Time Associated Diagnosis Comments XR CHEST 2 VIEWS STAT 09/27/2024 2:00 AM EDT POC , URINE DIAGNOSTIC STAT 09/27/2024 1:53 AM EDT CBC WITH AUTO DIFFERENTIAL STAT 09/27/2024 12:24 AM EDT B-TYPE NATRIURETIC PEPTIDE STAT 09/27/2024 12:24 AM EDT MAGNESIUM STAT 09/27/2024 12:24 AM EDT LIPASE STAT 09/27/2024 12:24 AM EDT COMPREHENSIVE METABOLIC PANEL STAT 09/27/2024 12:24 AM EDT CBC AND DIFFERENTIAL STAT 09/27/2024 12:24 AM EDT TROPONIN I HIGH SENSITIVITY STAT 09/27/2024 12:24 AM EDT ECG ANNOTATED 09/27/2024 ECG 12-LEAD STAT 09/26/2024 11:04 PM EDT TISSUE EXAM Routine 08/23/2024 9:12 AM EDT Lesion of endometrium POC , URINE DIAGNOSTIC Routine 07/11/2024 11:36 AM EDT examination or test, negative result HM HPV Routine 12/20/2023 from Last 3 Months or Most Recently Relevant to Health Maintenance Results * XR Chest 2 Views (09/27/2024 2:00 AM EDT) Anatomical Region Laterality Modality Body Radiographic Tatum ging 09/27/2024 8:12 AM EDT Impressions 09/27/2024 8:13 AM EDT No acute findings. -------- FINAL REPORT -------- Dictated By: Miles Easley Dictated Date: 09/27/2024 08:12 ET Assigned Physician: Miles Easley Reviewed and Electronically Signed By: Miles Easley Signed Date: 09/27/2024 08:13 ET Workstation ID: [id number] Transcribed By: Self Edit Transcribed Date: 09/27/2024 08:12 ET Narrative 09/27/2024 8:13 AM EDT PROCEDURE: PA and lateral radiographs of the chest. HISTORY: chest pain. COMPARISON: 04/08/2024. FINDINGS: Lungs, pleural spaces, pulmonary vasculature, and cardiomediastinal contours are normal. ??Mild leftward curvature and mild degenerative changes of the thoracic spine. Procedure Note Miles Easley MD - 09/27/2024 PROCEDURE: PA and lateral radiographs of the chest. HISTORY: chest pain. COMPARISON: 04/08/2024. FINDINGS: Lungs, pleural spaces, pulmonary vasculature, and cardiomediastinalcontours are normal. Mild leftward curvature and mild degenerativechanges of the thoracic spine. IMPRESSION: No acute findings. -------- FINAL REPORT -------- Dictated By: Miles Easley Dictated Date: 09/27/2024 08:12 ET Assigned Physician: Miles Easley Reviewed and Electronically Signed By: Miles Easley Signed Date: 09/27/2024 08:13 ET Workstation ID: [id number] Transcribed By: Self Edit Transcribed Date: 09/27/2024 08:12 ET Luis Graves MD IMG XR PROCEDURES Final Result * POC , urine manually resulted (09/27/2024 1:53 AM EDT) Only the most recent of2 resultswithin the time period is included. HCG, Ur POC Negative Negative POC hCG Int QC Pass? Yes Yes Urine Urine specimen obtained by clean catch procedure / Unknown 09/27/2024 1:53 AM EDT Ioana Goodman MD POINT OF CARE TEST ENTER /EDIT ORDERABLES Final Result * Troponin I high sensitivity (09/27/2024 12:24 AM EDT) Pathologist [facility] High Sensitivity Troponin I 3 <=54 ng/L LAB CHEMISTRY METHOD 09/27/2024 1:22 AM EDT [facility] Blood Venous blood specimen / Unknown Venipuncture / Unknown 09/27/2024 12:24 AM EDT 09/27/2024 12:51 AM EDT Narrative [facility] - 09/27/2024 1:22 AM EDT High levels of biotin in samples may falsely decrease hsTroponin values. ??Use caution when interpreting hsTroponin results in patients taking biotin who exhibit renal impairment (eGFR <60) or in patients taking more than 20 mg/day of biotin. Luis Graves MD LAB BLOOD ORDERABLES Final Resu lt [facility] [address] [place] [address], [place] [phone] * (ABNORMAL) CBC auto differential (09/27/2024 12:24 AM EDT) [facility] WBC 8.4 4.8 - 10.8 K/mcL LAB HEMETOLOGY METHOD 09/27/2024 12:57 AM [facility] RBC 4.30 3.80 - 4.80 M/mcL LAB HEMETOLOGY METHOD 09/27/2024 12:57 AM [facility] Hemoglobin 10.0(L) 11.5 - 16.0 g/dL LAB HEMETOLOGY METHOD 09/27/2024 12:57 AM [facility] Hematocrit 33.1(L) 35.0 - 47.0 % LAB HEMETOLOGY METHOD 09/27/2024 12:57 AM [facility] MCV 77.7(L) 79.0 - 98.0 FL LAB HEMETOLOGY METHOD 09/27/2024 12:57 AM [facility] MCH 23.5(L) 27.0 - 32.0 pcg LAB HEMETOLOGY METHOD 09/27/2024 12:57 AM [facility] MCHC 30.2(L) 32.0 - 37.0 g/dL LAB HEMETOLOGY METHOD 09/27/2024 12:57 AM [facility] RDW 16.2(H) 11.0 - 15.0 % LAB HEMETOLOGY METHOD 09/27/2024 12:57 AM [facility] Platelets 261 130 - 400 K/mcL LAB HEMETOLOGY METHOD 09/27/2024 12:57 AM [facility] MPV 11.2(H) 7.0 - 11.0 FL LAB HEMETOLOGY METHOD 09/27/2024 12:57 AM [facility] NRBC 0.0 <1.0 % LAB HEMETOLOGY METHOD 09/27/2024 12:57 AM [facility] NRBC Absolute 0.00 <0.10 K/mcL LAB HEMETOLOGY METHOD 09/27/2024 12:57 AM [facility] Neutrophils Relative 71.4 % LAB HEMETOLOGY METHOD 09/27/2024 12:57 AM [facility] Lymphocytes Relative 20.2 % LAB HEMETOLOGY METHOD 09/27/2024 12:57 AM [facility] Monocytes Relative 6.4 % LAB HEMETOLOGY METHOD 09/27/2024 12:57 AM [facility] Eosinophils Relative 0.8 % LAB HEMETOLOGY METHOD 09/27/2024 12:57 AM [facility] Basophils Relative 1.0 % LAB HEMETOLOGY METHOD 09/27/2024 12:57 AM [facility] Immature Granulocytes Relative 0.2 % LAB HEMETOLOGY METHOD 09/27/2024 12:57 AM [facility] Neutrophils Absolute 5.98 1.50 - 7.00 K/mcL LAB HEMETOLOGY METHOD 09/27/2024 12:57 AM [facility] Lymphocytes Absolute 1.69 1.00 - 5.00 K/mcL LAB HEMETOLOGY METHOD 09/27/2024 12:57 AM [facility] Monocytes Absolute 0.54 0.20 - 1.00 K/mcL LAB HEMETOLOGY METHOD 09/27/2024 12:57 AM [facility] Eosinophils Absolute 0.07 0.00 - 0.50 K/mcL LAB HEMETOLOGY METHOD 09/27/2024 12:57 AM [facility] Basophils Absolute 0.08 0.00 - 0.20 K/mcL LAB HEMETOLOGY METHOD 09/27/2024 12:57 AM [facility] Immature Granulocytes Absolute 0.02 0.00 - 0.03 K/mcL LAB HEMETOLOGY METHOD 09/27/2024 12:57 AM EDT [facility] Blood Venous blood specimen / Unknown Venipuncture / Unknown 09/27/2024 12:24 AM EDT 09/27/2024 12:52 AM EDT us Luis Graves MD LAB BLOOD ORDERABLES Final Resu lt Performing Organization Address City/[facility]/ZIP Co de Phone Number [facility] [address] [place] [address], [place] [phone] * B-type natriuretic peptide (09/27/2024 12:24 AM EDT) BNP 5 <=100 pcg/mL LAB CHEMISTRY METHOD 09/27/2024 1:41 AM EDT [facility] Blood Venous blood specimen / Unknown Venipuncture / Unknown 09/27/2024 12:24 AM EDT 09/27/2024 12:52 AM EDT us Luis Graves MD LAB BLOOD ORDERABLES Final Resu lt Performing Organization Address [facility]/ZIP Co de Phone Number [facility] [address] [place] [address], [place] [phone] * Magnesium (09/27/2024 12:24 AM EDT) Magnesium 2.2 1.9 - 2.6 mg/dL LAB CHEMISTRY METHOD 09/27/2024 1:22 AM EDT [facility] Blood Venous blood specimen / Unknown Venipuncture / Unknown 09/27/2024 12:24 AM EDT 09/27/2024 12:51 AM EDT us Luis Graves MD LAB BLOOD ORDERABLES Final Resu lt Performing Organization Address City/[facility]/ZIP Co de Phone Number [facility] [address] [place] [address], [place] [phone] * Lipase (09/27/2024 12:24 AM EDT) Pathologist [facility] Lipase 37 13 - 75 unit/L LAB CHEMISTRY METHOD 09/27/2024 1:22 AM [facility] Blood Venous blood specimen / Unknown Venipuncture / Unknown 09/27/2024 12:24 AM EDT 09/27/2024 12:51 AM EDT us Luis Graves MD LAB BLOOD ORDERABLES Final Resu lt [facility] [address] [place] [address], [place] [phone] * Comprehensive metabolic panel (09/27/2024 12:24 AM EDT) [facility] Sodium 138 133 - 145 mmol/L LAB CHEMISTRY METHOD 09/27/2024 1:22 AM [facility] Potassium 4.0 3.5 - 5.5 mmol/L LAB CHEMISTRY METHOD 09/27/2024 1:22 AM [facility] Chloride 107 96 - 110 mmol/L LAB CHEMISTRY METHOD 09/27/2024 1:22 AM [facility] CO2 27 21 - 32 mmol/L LAB CHEMISTRY METHOD 09/27/2024 1:22 AM [facility] Anion Gap 4 3 - 11 LAB CHEMISTRY METHOD 09/27/2024 1:22 AM [facility] Glucose 93 70 - 100 mg/dL LAB CHEMISTRY METHOD 09/27/2024 1:22 AM [facility] BUN 13 5 - 25 mg/dL LAB CHEMISTRY METHOD 09/27/2024 1:22 AM [facility] Creatinine 0.77 0.50 - 1.10 mg/dL LAB CHEMISTRY METHOD [facility]/27[facility]24 [facility] e[facility] 97 >=60 mL/min/1. 73m2 LAB CHEMISTRY METHOD 09/27/2024 1:22 AM [facility] Comment:Calculation based on the Chronic Kidney Disease Epidemiology Collaboration (CKD-EPI) equation refit without adjustment for race. BUN/Creatinine Ratio 16.9 LAB CHEMISTRY METHOD 09/27/2024 1:22 AM [facility] Calcium 8.9 8.5 - 10.5 mg/dL LAB CHEMISTRY METHOD 09/27/2024 1:22 AM [facility] AST (SGOT) 13 10 - 42 unit/L LAB CHEMISTRY METHOD 09/27/2024 1:22 AM [facility] ALT (SGPT) 17 10 - 60 unit/L LAB CHEMISTRY METHOD 09/27/2024 1:22 AM [facility] Alkaline Phosphatase 57 42 - 121 unit/L LAB CHEMISTRY METHOD 09/27/2024 1:22 AM [facility] Total Protein 7.0 6.0 - 8.0 g/dL LAB CHEMISTRY METHOD 09/27/2024 1:22 AM [facility] Albumin 3.6 3.2 - 5.0 g/dL LAB CHEMISTRY METHOD 09/27/2024 1:22 AM [facility] Total Bilirubin 0.3 0.0 - 1.4 mg/dL LAB CHEMISTRY METHOD 09/27/2024 1:22 AM [facility] Blood Venous blood specimen / Unknown Venipuncture / Unknown 09/27/2024 12:24 AM EDT 09/27/2024 12:51 AM EDT us Luis Graves MD LAB BLOOD ORDERABLES Final Resu lt [facility] [address] [place] [address], * ECG-Annotated (09/27/2024) Provider Ondelroy JAY ECG ORDERABLES Final Result * ECG 12 lead (09/26/2024 11:04 PM EDT) Ventricular Rate ECG 95 BPM GEMUSE Atrial Rate 95 BPM GEMUSE P-R Interval 138 ms GEMUSE QRS Duration 66 ms GEMUSE Q-T Interval 348 ms GEMUSE QTc 437 ms GEMUSE P Wave [place] 18 degrees GEMUSE R [place] 11 degrees GEMUSE T [place] 29 degrees GEMUSE ECG Interpretation Normal sinus rhythm Normal ECG When compared with ECG of 08-APR-2024 09:49, No significant change was found Confirmed by Alcon AGOSTO YUFENG ([id number]) on 09/27/2024 7:19:48 PM GEMUSE 09/26/2024 11:0 4 PM EDT 09/27/2024 7:19 PM EDT Luis Graves MD ECG ORDERABLES Final Result GEMUSE * Tissue exam (08/23/2024 9:12 AM EDT) Final Diagnosis Endometrial biopsy: Necrotic and inflamed decidua/pseudo-d ecidualized endometrium No trophoblastic tissue identified No viable endometrium identified 08/27/2024 10:16 AM EDT [facility] Comment Given the patient's history of a Mirena IUD, this likely represents necrotic endometrium with progestin effect giving the pseudo-deciduali zed appearance. 08/27/2024 10:16 AM EDT [facility] Clinical Information Lesion of endometrium N85.9 08/27/2024 10:16 AM EDT [facility] Gross Description A. Endometrium, biopsy: [...] x 2. DUNCAN 08/27/2024 10:16 AM EDT [facility] Disclaimer Unless otherwise specified, all tissue is 10% NB formalin fixed and paraffin embedded. 08/27/2024 10:16 AM EDT [facility] Tissue Endometrial structure / Unknown Non-blood Collection / Unknown 08/23/2024 9:12 AM EDT 08/23/2024 9:12 AM EDT Natalee Neumann MD LAB PATHOLOGY ORDERABLES Fi nal Result [facility] [address] [place] [address], * Cervical Cancer Screening: HPV (12/20/2023) Cervical Cancer Screening: HPV Negative, Abstracted Historical Provider HEALTH MAINTENANCE Final Result from Last 3 Months or Most Recently Relevant to Health Maintenance Insurance [facility] [place] [id number] [facility] Care Teams Cotton Ball Machine Tender Relationship Specialty Start Date End Date Latosha Cherry MD [address] [place] [address] PCP - General Internal Medicine 08/22/24
== END 2024-10-11 09:34 | disposition home or self-care (01) ==
LOC: HO.HMCC 08:55
PROVIDERS: PCP Internal Medicine; Visit Provider Physician Assistant
DX: S46.812A Strain of other muscles, fascia and tendons at shoulder and upper arm level, left arm, initial encounter (principal)

== ENCOUNTER → 2024-10-11 08:54 | Outpatient (BNVA) | payer OTHER, SELFPAY | PROVIDERS: PCP Internal Medicine; Visit Provider Physician Assistant | DX: S46.812A Strain of other muscles, fascia and tendons at shoulder and upper arm level, left arm, initial encounter (principal); M54.12 Radiculopathy, cervical region; R07.1 Chest pain on breathing; K58.9 Irritable bowel syndrome, unspecified; J30.2 Other seasonal allergic rhinitis; X58.XXXA Exposure to other specified factors, initial encounter; Y93.9 Activity, unspecified; Y92.9 Unspecified place or not applicable; Y99.9 Unspecified external cause status; Z79.899 Other long term (current) drug therapy | CPT/HCPCS: 99212 ==

== ENCOUNTER 2024-11-21 11:22 | Outpatient (REF) | payer OTHER, SELFPAY ==
--- NOTE | ~2024-11-21 | US_ITS ---
EXAMINATION: MM DIAGNOSTIC DIGITAL BREAST TOMOSYNTHESIS, LEFT Limited left breast ultrasound. CLINICAL INFORMATION: Call back from screening for asymmetry in the upper left breast middle to posterior depth on MLO view with associated questioned distortion. COMPARISON: Mammography: Priors on PACS. TECHNIQUE: Digital breast tomosynthesis is performed in both the craniocaudal and mediolateral oblique views along with computer-aided detection (CAD). Synthesized 2D images are generated from the tomosynthesis. FINDINGS: There are scattered areas of fibroglandular density (ACR BI-RADS breast composition Category b). Asymmetry superior breast middle to posterior depth with questioned distortion on MLO view does not persist on additional imaging projections and likely represented overlapping breast tissue. There are no significant masses, abnormal calcifications, or other abnormalities. Targeted color Doppler ultrasound scanning from 10-2 o'clock in the retroareolar region and upper outer breast demonstrates normal fibronodular breast tissue. There is no sonographic abnormal finding. US/US breast LT limited mamm only IMPRESSION: No mammographic evidence of malignancy. ASSESSMENT: BI-RADS BI-RADS 1 - Negative RECOMMENDATION: 1 year F/U Results were provided to the patient at time of visit by the technologist. This patient's information was entered into a reminder system with a target due date for their next mammogram. Electronically signed by: Renee Yu DO 11/21/2024 12:03 PM EDT
--- OUTSIDE RECORDS SUMMARY | 2024-11-21 12:23 | XMS_ITS | Patient Health Record ---
Author Organization [facility] Address [address] [address] [place] [address] Care Team Providers Care Lunchroom Monitor Name Role Phone TIERNEY TELLO Unavailable [phone] Allergies No Known Allergies Reason For Referral [...] day Active Vitamin D (Ergocalciferol) 1.25 MG (09192 UT) 1 capsule Orally Once a week Active Cetirizine HCl 5 MG 1 tablet Orally Once a day Active Incassia 0.35 MG TAKE 1 TABLET BY OLY TH EVERY DAY Orally Once a day; Duration: 84 days Active Social History Tobacco Use: [...] Date Coverage End Date YOLIE MEHTA [address] [place] [address] [id number] ZHENG LEONARDO Self - patient is the insured Medical (General) History Medical History History ICD Code Unspecified asthma, uncomplicated J45.90 9 Anxiety disorder, unspecified F41.9 Major depressive disorder, recurrent, mo derate F33.1 Nontoxic multinodular goiter E04.2 Mixed irritable bowel syndrome K58.2 COVID-19 U07.1 Surgical History Surgery Date(Month/Year) Tubal ligation 01/25/2008 Hospitalization History Reason Date(Month/Year) childbirth 01/12/2006 childbirth 01/24/2008
--- OUTSIDE RECORDS SUMMARY | 2024-11-21 12:23 | XMS_ITS | Clinical Summary ---
Author Organization [facility] [address] [place] [address] [place] [phone] Phone Care Team Providers Care Mobility Specialist Name Role Phone Latosha Cherry MD Primary Care Provider [phone] Allergies No known active allergies Medications OMEPRAZOLE [...] to 10 days. 15 tablet 5 Active Active Problems Problem Noted Date Diagnosed [...] EDT Office Visit Obstetrics and Gynecology - [address] [phone] Natalee Neumann MD IUD (intrauterine device) in place (Primary Dx); Prolonged menstruation 09/27/2024 12:12 AM EDT - 09/27/2024 3:05 AM EDT Emergency [facility] Emergency [address] [place] [address] Ioana Goodman MD Costochondral chest pain (Primary Dx); Cervical radiculopathy Discharge Disposition: Home or Self Care 08/23/2024 8:45 AM EDT Office Visit Obstetrics and Gynecology - [address] [phone] Natalee Neumann MD IUD (intrauterine device) in place (Primary Dx); Lesion of endometrium; Prolonged menstruation from Last 3 Months Surgical History Surgery Date Site/Laterality Comments OTHER SURGICAL HISTORY PROCEDURE: [place] LIG/TRNSXJ FLP TUBE ABDL/VAG APPR UNI/BI Medical [...] for your loved ones. For example, child center assistant or elderly care for an older [...] 2024 11/30/2020, 11/07/2020 Influenza Vaccine (#1) 2024 Social Influencers of Health Screening 07/11/2025 07/11/2024 Cervical Cancer Screening: HPV 12/19/2028 12/20/2023 Depression Screening Completed 07/11/2024 HIB Vaccines Aged Out No longer eligi [...] 5 Years) and At-Risk Patients (6 to 49 Years) Aged Out No longer eligible b [...] Signed Date: 09/27/2024 08:13 ET Workstation ID: [id number] Transcribed By: Self Edit Transcribed Date: 09/27/2024 [...] Signed Date: 09/27/2024 08:13 ET Workstation ID: [id number] Transcribed By: Self Edit Transcribed Date: 09/27/2024 08:12 ET Luis Graves MD IMG XR PROCEDURES Final Result * POC , urine manually resulted (09/27/2024 1:53 AM EDT) HCG, Ur POC Negative Negative POC hCG Int QC Pass? Yes Yes Urine Urine specimen obtained by clean catch procedure / Unknown 09/27/2024 1:53 AM EDT Ioana Goodman MD POINT OF CARE TEST ENTER /EDIT ORDERABLES Final Result * Troponin I high sensitivity (09/27/2024 12:24 AM EDT) [facility] High Sensitivity Troponin I 3 <=54 [...] taking more than 20 mg/day of biotin. us Luis Graves MD LAB BLOOD ORDERABLES Final Resu lt [facility] [address] [place] [address], [place] [phone] * (ABNORMAL) CBC auto differential (09/27/2024 12:24 AM EDT) [facility] WBC 8.4 4.8 - 10.8 K/mcL LAB HEMETOLOGY METHOD 09/27/2024 12:57 AM EDT [facility] RBC 4.30 3.80 - 4.80 M/mcL LAB HEMETOLOGY METHOD 09/27/2024 12:57 AM EDT [facility] Hemoglobin 10.0(L) 11.5 - 16.0 g/dL LAB HEMETOLOGY METHOD 09/27/2024 12:57 AM EDT [facility] Hematocrit 33.1(L) 35.0 - 47.0 % LAB HEMETOLOGY METHOD 09/27/2024 12:57 AM [facility] MCV 77.7(L) 79.0 - 98.0 FL LAB HEMETOLOGY METHOD 09/27/2024 12:57 AM [facility] MCH 23.5(L) 27.0 - 32.0 pcg LAB HEMETOLOGY METHOD 09/27/2024 12:57 AM [facility] MCHC 30.2(L) 32.0 - 37.0 g/dL LAB HEMETOLOGY METHOD 09/27/2024 12:57 AM [facility] RDW 16.2(H) 11.0 - 15.0 % LAB HEMETOLOGY METHOD 09/27/2024 12:57 AM [facility] Platelets 261 130 - 400 K/mcL LAB HEMETOLOGY METHOD 09/27/2024 12:57 AM [facility] MPV 11.2(H) 7.0 - 11.0 FL LAB HEMETOLOGY METHOD 09/27/2024 12:57 AM [facility] NRBC 0.0 <1.0 % LAB HEMETOLOGY METHOD 09/27/2024 12:57 AM [facility] NRBC Absolute 0.00 <0.10 K/mcL LAB HEMETOLOGY METHOD 09/27/2024 12:57 AM [facility] Neutrophils Relative 71.4 % LAB HEMETOLOGY METHOD 09/27/2024 12:57 AM [facility] Lymphocytes Relative 20.2 % LAB HEMETOLOGY METHOD 09/27/2024 12:57 AM [facility] Monocytes Relative 6.4 % LAB HEMETOLOGY METHOD 09/27/2024 12:57 AM [facility] Eosinophils Relative 0.8 % LAB HEMETOLOGY METHOD 09/27/2024 12:57 AM EDT [facility] Basophils Relative 1.0 % LAB HEMETOLOGY METHOD 09/27/2024 12:57 AM EDT [facility] Immature Granulocytes Relative 0.2 % LAB HEMETOLOGY METHOD 09/27/2024 12:57 AM EDT [facility] Neutrophils Absolute 5.98 1.50 - 7.00 K/mcL LAB HEMETOLOGY METHOD 09/27/2024 12:57 AM EDT [facility] Lymphocytes Absolute 1.69 1.00 - 5.00 K/mcL LAB HEMETOLOGY METHOD 09/27/2024 12:57 AM EDT [facility] Monocytes Absolute 0.54 0.20 - 1.00 K/mcL LAB HEMETOLOGY METHOD 09/27/2024 12:57 AM EDT [facility] Eosinophils Absolute 0.07 0.00 - 0.50 K/mcL LAB HEMETOLOGY METHOD 09/27/2024 12:57 AM EDT [facility] Basophils Absolute 0.08 0.00 - 0.20 K/mcL LAB HEMETOLOGY METHOD 09/27/2024 12:57 AM EDT [facility] Immature Granulocytes Absolute 0.02 0.00 - 0.03 K/mcL LAB HEMETOLOGY METHOD 09/27/2024 12:57 AM EDT [facility] Blood Venous blood specimen / Unknown Venipuncture / Unknown 09/27/2024 12:24 AM EDT 09/27/2024 12:52 AM EDT us Luis Graves MD LAB BLOOD ORDERABLES Final Resu lt [facility] [address] [place] [address], * B-type natriuretic peptide (09/27/2024 12:24 AM EDT) [facility] BNP 5 <=100 pcg/mL LAB CHEMISTRY METHOD 09/27/2024 1:41 AM EDT [facility] Blood Venous blood specimen / Unknown Venipuncture / Unknown 09/27/2024 12:24 AM EDT 09/27/2024 12:52 AM EDT us Luis Graves MD LAB BLOOD ORDERABLES Final Resu lt Performing Organization Address [facility]/ZIP Ca de Phone Number [facility] [address] [place] [address], [place] [phone] * Magnesium (09/27/2024 12:24 AM EDT) [facility] Magnesium 2.2 1.9 - 2.6 mg/dL LAB CHEMISTRY METHOD 09/27/2024 1:22 AM EDT [facility] Blood Venous blood specimen / Unknown Venipuncture / Unknown 09/27/2024 12:24 AM EDT 09/27/2024 12:51 AM EDT us Luis Graves MD LAB BLOOD ORDERABLES Final Resu lt Performing Organization Address [facility] de Phone Number [facility] [address] [place] [address], [place] [phone] * Lipase (09/27/2024 12:24 AM EDT) [facility] Lipase 37 13 - 75 unit/L LAB CHEMISTRY METHOD 09/27/2024 1:22 AM EDT [facility] Blood Venous blood specimen / Unknown Venipuncture / Unknown 09/27/2024 12:24 AM EDT 09/27/2024 12:51 AM EDT us Luis Graves MD LAB BLOOD ORDERABLES Final Resu lt Performing Organization Address City/[facility]/ZIP Co de Phone Number [facility] [address] [place] [address], [place] [phone] * Comprehensive metabolic panel (09/27/2024 12:24 AM EDT) Sodium 138 133 - 145 mmol/L LAB CHEMISTRY METHOD 09/27/2024 1:22 AM [facility] Potassium 4.0 3.5 - 5.5 mmol/L LAB CHEMISTRY METHOD 09/27/2024 1:22 AM [facility] Chloride 107 96 - 110 mmol/L LAB CHEMISTRY METHOD 09/27/2024 1:22 AM [facility] CO2 27 21 - 32 mmol/L LAB CHEMISTRY METHOD 09/27/2024 1:22 AM [facility] Anion Gap 4 3 - 11 LAB CHEMISTRY METHOD 09/27/2024 1:22 AM [facility] Glucose 93 70 - 100 mg/dL LAB CHEMISTRY METHOD 09/27/2024 1:22 AM [facility] BUN 13 5 - 25 mg/dL LAB CHEMISTRY METHOD 09/27/2024 1:22 AM [facility] Creatinine 0.77 0.50 - 1.10 mg/dL LAB CHEMISTRY METHOD 09/27/2024 1:22 AM [facility] eGFR 97 >=60 mL/min/1. 73m2 LAB CHEMISTRY METHOD 09/27/2024 1:22 AM [facility] Comment:Calculation based on the Chronic Kidney Disease Epidemiology Collaboration (CKD-EPI) equation refit without adjustment for race. BUN/Creatinine Ratio 16.9 LAB CHEMISTRY METHOD 09/27/2024 1:22 AM [facility] Calcium 8.9 8.5 - 10.5 mg/dL LAB CHEMISTRY METHOD 09/27/2024 1:22 AM [facility] AST (SGOT) 13 10 - 42 unit/L LAB CHEMISTRY METHOD 09/27/2024 1:22 AM EDT [facility] ALT (SGPT) 17 10 - 60 unit/L LAB CHEMISTRY METHOD 09/27/2024 1:22 AM [facility] Alkaline Phosphatase 57 42 - 121 unit/L LAB CHEMISTRY [facility]24 [facility] Protein 7.0 6.0 - 8.0 g/dL LAB CHEMISTRY METHOD 09/27/2024 1:22 AM [facility] Albumin 3.6 3.2 - 5.0 g/dL LAB CHEMISTRY METHOD 09/27/2024 1:22 AM [facility] Total Bilirubin 0.3 0.0 - 1.4 mg/dL LAB CHEMISTRY METHOD 09/27/2024 1:22 AM [facility] Blood Venous blood specimen / Unknown Venipuncture / Unknown 09/27/2024 12:24 AM EDT 09/27/2024 12:51 AM EDT Luis Graves MD LAB BLOOD ORDERABLES Final Resu lt [facility] [address] [place] [address], * ECG-Annotated (09/27/2024) us Provider Onbase ECG ORDERABLES Final Result * ECG 12 lead (09/26/2024 11:04 PM EDT) Ventricular Rate ECG 95 BPM GEMUSE Atrial Rate 95 BPM GEMUSE P-R Interval 138 ms GEMUSE QRS Duration 66 ms GEMUSE Q-T Interval 348 ms GEMUSE QTc 437 ms GEMUSE P Wave Pyatt 18 degrees GEMUSE R Pyatt 11 degrees GEMUSE T Pyatt 29 degrees GEMUSE ECG Interpretation Normal sinus [...] viable endometrium identified 08/27/2024 10:16 AM EDT [facility] Comment Given the patient's history of a Mirena IUD, this likely represents necrotic endometrium with progestin effect giving the pseudo-deciduali zed appearance. 08/27/2024 10:16 AM EDT [facility] Clinical Information Lesion of endometrium N85.9 08/27/2024 10:16 AM EDT [facility] Gross Description A. Endometrium, biopsy: [...] fixed and paraffin embedded. 08/27/2024 10:16 AM T [facility] Tissue Endometrial structure / Unknown Non-blood Collection / Unknown 08/23/2024 9:12 AM EDT 08/23/2024 9:12 AM EDT us Natalee Neumann MD LAB PATHOLOGY ORDERABLES Fi nal Result [facility] AVENDANO [place] ([facility]) [facility] [address] [place] [address], * Cervical Cancer Screening: HPV (12/20/2023) Cervical Cancer Screening: HPV Negative, Abstracted us Historical Provider HEALTH MAINTENANCE Final Result from Last 3 Months or Most Recently Relevant to Health Maintenance Insurance [facility] [employer] Care Teams Mobility Specialist Relationship Specialty Start Date End Date Latosha Cherry MD [address] [facility] [place] [address] PCP - General Internal Medicine 08/22/24
--- OUTSIDE RECORDS SUMMARY | 2024-11-21 12:23 | XMS_ITS | Clinical Summary ---
Author Organization [email or web address] Address [address] [facility] 7[address] [place] [address] Care Team Providers Care Solo Truck Driver Name Role Phone Unavailable Primary Care Provider [...] 1978 FIT 1978 FOBT 1978 Sigmoidoscopy 1978 Disability Screening 1978 Alcohol/Substance Use Screening 1990 Tobacco Screening 1990 Family Planning (PISQ) 1993 DTaP/Tdap/Td Vaccines (1 - Tdap) 1997 Hepatitis B Vaccines (1 of 3 - 19+ 3-dose series) 1997 Pap Smear 11/05/1999 Mammogram 2018 COVID-19 Vaccine (2023-2 5 season) 2024 Cervical Cancer Screening 06/26/2024 HPV/Cotest 06/26/2024 06/26/2019 Influenza Vaccine (#1) 2024 Zoster Vaccines (1 of 2) 2028 RSV [...] Years) and At-Risk Patients (6 to 49) Years Aged Out No longer eligi ble based on patient's age to complete this topic RSV under 20 months Aged Out No longe r eligible based on patient's age to complete this topic Rotavirus Vaccines Aged Out No longer eligible based on patient's age to complete this topic Procedures Procedure Name Priority Date/Time Associated Diagnosis Comments CECI HISTORICAL HPV MRNA E6/E7 Routine 06/26/2019 3:53 PM EST from Last 3 Months or Most Recently Relevant to Health Maintenance Results * HPV mRNA E6/E7 (06/26/2019 3:53 PM EST) HPV mRNA E6/E7 Not Detected NOT DETECTED [facility] Comment: This test was performed using the APTIMA(R) HPV Assay ([employer] This assay detects E6/E7 viral messenger RNA (mRNA) from 14 high-risk HPV types (16,18,31,33,35,39,45,51, 52,56,58,59,66,68). For additional information please refer to: http://education.[employer]/faq/WUT367l3 (This link is being provided for informational/ educational purposes only.) The analytical performance characteristics of this assay have been determined by [employer] [place], [place]. The modifications have not been cleared or approved by the FDA. This assay has been validated pursuant to the CLIA regulations and is used for clinical purposes. Test Performed by [facility], [address], [address] [place] [address] Tin Pierre M.D., Ph.D., Director of Laboratories , CLIA [id number] Please note: Effective 01/12/2016, HPV testing will be performed using [employer]'s APTIMA test which targets mRNA. Detecting mRNA instead of DNA, as in older methods, offers significant improvements in specificity. 06/26/2019 3:53 PM EST us May Medina CNM HISTORICAL/NON ORDERABLE LABS Final Result [facility] Anywhere [address] from Last 3 Months or Most Recently Relevant to Health Maintenance
== END 2024-11-21 11:23 | disposition home or self-care (01) ==
LOC: HO.MAMMO 11:22
PROVIDERS: PCP Internal Medicine; Visit Provider Internal Medicine
DX: N64.89 Other specified disorders of breast (principal)
CPT/HCPCS: 76642; 77061; 77065

== ENCOUNTER → 2024-11-21 11:30 | Outpatient (BNV) | payer OTHER, SELFPAY | PROVIDERS: PCP Internal Medicine; Visit Provider Internal Medicine | DX: R92.8 Other abnormal and inconclusive findings on diagnostic imaging of breast (principal); R92.322 Mammographic fibroglandular density, left breast | CPT/HCPCS: 76642; 77061; 77065 ==

== ENCOUNTER 2025-03-06 08:52 | Outpatient (AMB) | payer OTHER, SELFPAY ==
--- NOTE | 2025-03-06 08:57 | MHC.OFFVIS ---
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 Intake Note: New dx chest pain was checked in [place] about 6 years ago but the palpitations are stronger and more now Neuropsychiatric Aide Required: No Allergies prednisone Adverse Reaction (Intermediate, Verified 10/11/24 09:23) vaginal bleeding pollen Allergy (Mild, Uncoded 08/08/24 08:55) Itchy Eyes Medication List - Last Reconciled 03/06/25 by Emliiano Escamilla MD albuterol sulfate 90 mcg/actuation 2 puffs inhalation QID PRN albuterol sulfate 0.63 mg (3 mL) inhalation QID PRN 30 days buspirone 5 mg PO TID cyclobenzaprine 5 mg PO Q8H PRN dicyclomine 10 mg PO TID PRN levonorgestrel (Mirena) intrauterine meloxicam 15 mg PO DAILY PRN omeprazole 20 mg PO DAILY HPI Comments Details: Renee was referred to cardiology for precordial chest discomfort and numbness in his left arm along with rapid heart rate. Patient has prior history of hyperlipidemia, family history of father dying at age 28 of unclear reason but cardiac question congenital heart disease, she is not sure, anxiety, obesity has been having precordial chest discomfort which she describes as electric pain in his chest with radiation with numbness down the left arm. Symptoms can happen under stressful situation with anxiety or with exertion but also at rest. Symptoms are not consistent. Can last for about half an hour but also longer period time. She says she suffers from anxiety and when she gets this is comfort she gets very anxious about it. She also notices when she is exercising she notices rapid heart rate with pounding in his year's. She is concerned about these symptoms as well. She has exertional shortness of breath. No orthopnea, PND, leg edema. No prolonged palpitation at rest. No lightheadedness, syncope. She is currently not on any therapy for hyperlipidemia. [facility] Medical History Adenomyosis of the uterus Irregular menstrual bleeding Left thyroid nodule Dyslipidemia Dyslipidemia (high LDL; low HDL) Vitamin D deficiency Lumbago with sciatica, right side Depression with anxiety Mild intermittent asthma COVID-19 virus infection Hemorrhoids Gastric ulcer Seasonal allergic rhinitis Menorrhagia IBS (irritable bowel syndrome) Surgical History History of esophagogastroduodenoscopy (EGD) H/O colonoscopy Hx of tubal ligation Family History Father No problems noted. Paternal Grandmother No problems noted. Paternal Uncle Mental health disorder Paternal Grandmother Mental health disorder Mother Mental health disorder Social History Housing: Apartment Alcohol intake: current Alcohol intake frequency: does not drink Patient Tobacco Use Status: Never used Tobacco e-Cigarette/Vaping Use: Never Used Second Hand Smoke Exposure: No service: No Current occupational status: employed Cognitive needs: No Hearing needs: No Vision needs: Yes Review of Systems Const Denies chills, Denies daytime sleepiness, Denies fatigue, Denies fever(s), Denies frequent falls, Denies poor appetite, Denies snoring, Denies stops breathing during sleep, Denies weakness, Denies weight gain and Denies weight loss Eyes Denies loss of vision ENT Denies dizziness and Denies hearing loss Card Reports chest pain, Denies claudication, Denies leg edema, Denies lightheadedness, Reports palpitations, Reports dyspnea, Reports dyspnea on exertion and Reports orthopnea Resp Denies cough, Denies excessive phlegm production, Reports dyspnea, Reports dyspnea on exertion, Denies snoring and Denies wheezing GI Denies abdominal pain, Denies hematochezia, Denies change in bowel habits, Denies nausea and Denies vomiting Denies urinary frequency and Denies dysuria Musc Denies arthralgias, Denies muscle weakness and Denies numbness Skin/Breast Denies nail changes and Denies rash Neuro Denies Abnormal speech present, Denies dizziness, Denies frequent falls, Denies loss of vision, Denies memory loss, Denies numbness and Denies weakness Psych Denies depression and Denies memory loss Endo Denies fatigue and Reports palpitations Trent/Lymph Reports easy bruising and Reports other (anemia) Aller/Immun Denies wheezing Physical Exam Vital Signs: Last Vital Signs Pulse 84 03/06/25 08:58 BP 126/82 03/06/25 08:58 BMI result Body Mass Index 32.5 Const General: cooperative, comfortable, no acute distress, alert and awake Nutritional Appearance: obese Orientation/consciousness: patient oriented x3 Limitations: no limitations HEENT Head: Yes normocephalic and Yes atraumatic Neck Neck: Yes trachea midline, Yes supple and Yes no JVD Resp Effort & Inspection: normal respiratory effort Auscultation: clear to auscultation bilaterally Cardio Jugular venous distension: no JVD Rate: regular rate Rhythm: regular rhythm Heart sounds: S1 normal heart sound present, S2 normal heart sound present, no click, no gallops, no murmurs and no rubs GI Auscultation: normal bowel sounds Skin General skin exam: no rashes or lesions noted Neuro General: patient oriented x3 and no focal motor deficits Speech: No Abnormal speech present Extrem General: Yes no clubbing, cyanosis or edema Psych Appearance: grossly normal Affect: Anxious affect present Office Procedures EKG Details: EKG shows normal sinus rhythm with poor R-wave progression most likely due to lead placement and body habitus. [id number], Complete Assessment & Plan Assessment & Plan (1) Chest pain of uncertain etiology: Comment: with numbness and tingling down left arm Code(s): R07.9 - Chest pain, unspecified Category: Medical Plan: Patient was symptoms of precordial chest pain with risk factors of obesity, hyperlipidemia as well as unclear family history. I think she would benefit from a stress test to evaluate for myocardial ischemia although likelihood is low. This was discussed with the clearly. She has a EKGs that shows poor R-wave progression most likely due to lead placement body habitus although echocardiogram would suggest any wall motion abnormality and also evaluate LV function as well as evaluation for hypertensive heart disease and pulmonary hypertension given her body habitus and possibility of obesity hypoventilation syndrome. Patient will also need a Holter monitor given her symptoms of rapid heart rate. Further treatment based on the findings. The stress test is normal and she has no evidence of obstructive coronary artery disease I recommend her to pursue coronary calcium score if she is interested. Rationale for this test was discussed with her in details as well. Will follow up in the clinic if need be. Thank you for allowing me to partake in her care Orders: Orders CA stress test Today R07.9 - Chest pain, unspecified CA echo transthoracic complete Today R07.9 - Chest pain, unspecified ECG 3 day holter monitor Today R07.9 - Chest pain, unspecified Coding Level of Care Code New Pt Level 4 (29471) Complex EM visit Add On G2211 Diagnoses Chest pain of uncertain etiology R07.9 CPT Codes EKG - CPT: 38127-[id number], Complete ([id number])
[2025-03-06 08:58] VITALS: BP 126/82; PULSE 84; BMI 32.5
--- OUTSIDE RECORDS SUMMARY | 2025-03-06 09:23 | XMS_ITS | Clinical Summary ---
Author Organization [employer] Address [address] [facility] [address] [place] [address] Care Team Providers Care Associate Editor Name Role Phone Unavailable Primary Care Provider [...] series) 1997 Pap Smear 11/05/1999 Mammogram 2018 Cervical Cancer Screening 06/26/2024 HPV/Cotest 06/26/2024 06/26/2019 COVID-19 Vaccine (1 - 2023-2 5 season) 2024 Influenza Vaccine (#1) 2024 Zoster Vaccines (1 [...] HPV mRNA E6/E7 Not Detected NOT DETECTED [facility] Comment: This test was performed using the APTIMA(R) HPV Assay ([employer] This assay detects E6/E7 viral messenger RNA (mRNA) from 14 high-risk HPV types (16,18,31,33,35,39,45,51, 52,56,58,59,66,68). For additional information please refer to: http://education.[employer]/faq/PKO522w0 (This link is being provided for informational/ educational purposes only.) The analytical performance characteristics of this assay have been determined by [employer] [place], [place]. The modifications have not been cleared or approved by the FDA. This assay has been validated pursuant to the CLIA regulations and is used for clinical purposes. Test Performed by [facility], [address], [address] [place] [address] Tin Pierre M.D., Ph.D., Director of Laboratories , CLIA [id number] Please note: Effective 01/12/2016, HPV testing will be performed using [employer]'s APTIMA test which targets mRNA. Detecting mRNA instead of DNA, as in older methods, offers significant improvements in specificity. 06/26/2019 3:53 PM EST us May Medina CNM HISTORICAL/NON ORDERABLE LABS Final Result [facility] Anywhere [address] from Last 3 Months or Most Recently Relevant to Health Maintenance
--- OUTSIDE RECORDS SUMMARY | 2025-03-06 09:23 | XMS_ITS | Clinical Summary ---
Author Organization [facility] [address] [place] [address] [place] [phone] Phone Care Team Providers Care Dehairer Name Role Phone Latosha Cherry MD Primary [...] US ordered for early Jun. Anemia 12/01/2023 Surgical History Surgery Date Site/Laterality Comments OTHER SURGICAL HISTORY PROCEDURE: [place] LIG/TRNSXJ FLP TUBE ABDL/VAG APPR UNI/BI Medical [...] for your loved ones. For example, child welfare counselor or elderly care for an older adult? [...] Date Recorded What is your living situation? Unrecognized valu e 07/11/2024 Comments No Sex and Gender Information Value Date Recorded Sex Assigned at Not on file Legal Sex Female 8:55 PM EST Gender Identity Not on file Sexual Orientation Not on file Obstetrics History Para Term AB IAB SAB Ectopic Multiple Livin g Live Births 2 2 2 0 0 0 0 0 Date Outcome [...] Last Done Comments Breast Cancer Screening 1978 Colorectal Cancer Screening: Colonoscopy 1978 DTaP,Tdap,and Td Vaccines (1 - Tdap) 1997 Hepatitis B Vaccines (1 of 3 - 19+ 3-dose series) 1997 HIV Screening 05/27/2023 Hepatitis C Screening 05/27/2023 COVID-19 Vaccine (3 - 2024-2 6 season) 2024 11/30/2020, 11/07/2020 Influenza Vaccine (#1) 2024 Social Influencers of Health Screening 07/11/2025 07/11/2024 Cervical Cancer Screening: HPV 12/19/2028 12/20/2023 RSV Immunization Adult Patients (1 - 1-dose 75+ series) 2053 Depression Screening Completed 07/11/2024 HIB Vaccines Aged [...] Procedure Name Priority Date/Time Associated Diagnosis Comments HPV Routine 12/20/2023 from Last 3 Months or Most Recently Relevant to Health Maintenance Results * Cervical Cancer Screening: HPV (12/20/2023) Cervical Cancer Screening: HPV Negative, Abstracted Historical Provider MD HEALTH MAINTENANCE Final Result from Last 3 Months or Most Recently Relevant to Health Maintenance Insurance [facility] PUBLIC PLANS [place] [id number] Care Teams Dehairer Relationship Specialty Start Date End Date Latosha Cheryr MD [address] [facility] [place] [address] PCP - General Internal Medicine 08/22/24
== END 2025-03-06 09:25 | disposition home or self-care (01) ==
PROVIDERS: PCP Internal Medicine; Visit Provider Internal Medicine Cardiovascular Disease
DX: R07.9 Chest pain, unspecified (principal)
CPT/HCPCS: 93010; 99204

== ENCOUNTER → 2025-03-06 08:52 | Outpatient (BNVA) | payer OTHER, SELFPAY | PROVIDERS: PCP Internal Medicine; Visit Provider Internal Medicine Cardiovascular Disease | DX: R07.9 Chest pain, unspecified (principal); E66.9 Obesity, unspecified; E78.5 Hyperlipidemia, unspecified | CPT/HCPCS: 93005; 99202 ==

== ENCOUNTER 2025-03-11 09:18 | Outpatient (AMB) | payer OTHER, SELFPAY ==
[2025-03-11 09:27] VITALS: BP 118/80; PULSE 106; TEMP 36.9; O2SAT 98; BMI 32.8
--- NOTE | 2025-03-11 09:27 | AM.OFFWIN_ITS ---
Intake Vital Signs 03/11/25 09:27 Height 5 ft 4 in Weight 191 lb BMI 32.8 BP 118/80 Blood Pressure Location Rt brachial Position Sitting Pulse 106 H Pulse Source Pulse Oximeter Temp 98.5 F Temp Source Oral Pulse Oximetry (%) 98 Oxygen Delivery Method Room Air Intake Visit Reasons: EP Runny nose, cough, body pain left side, anxiety Intake Note: Patient presents with c/o cold x2 weeks that has not gone away - has tried OTC things but does not feel it was helpful. Patient also presents with anxiety related to information given to her by a research affiliate about a heart attack & related to pain in left arm/shoulder & left flank, only when she is doing something. Patient Tobacco Use Status: Never used Tobacco Allergies prednisone Adverse Reaction (Intermediate, Verified 03/11/25 09:36) vaginal bleeding pollen Allergy (Mild, Uncoded 03/11/25 09:36) Itchy Eyes Do you need a note to return to daycare/school/sports/work: Yes HPI HPI Comments History of Present Illness Details 44 y/o Female presents to the walk[facility]in [facility] with c/o posterior neck pain radiating to the left arm, associated with numbness and tingling in the fingers. Also reports chest tightness, pressure, and heart palpitations. States she was evaluated by Cardiology on 03/06, had an ECG, and was informed she had a prior ?heart attack.? Stress test, echocardiogram, and 3-day Holter monitor have been ordered, pending scheduling. Patient reports history of anxiety, currently on medication, and seeing a therapist. Believes current symptoms may be due to panic attacks related to fear of having another PR. Reports recent nasal congestion and cold symptoms for a few days. Denies fever, chills, nausea, or vomiting. [facility] Medical History (Updated 03/11/25 @ 10:49 by Blanka Mena NP) Atypical chest pain Adenomyosis of the uterus Irregular menstrual bleeding Left thyroid nodule Dyslipidemia Dyslipidemia (high LDL; low HDL) Vitamin D deficiency Lumbago with sciatica, right side Depression with anxiety Mild intermittent asthma COVID-19 virus infection Hemorrhoids Gastric ulcer Seasonal allergic rhinitis Menorrhagia IBS (irritable bowel syndrome) Surgical History History of esophagogastroduodenoscopy (EGD) H/O colonoscopy Hx of tubal ligation Family History Father No problems noted. Paternal Grandmother No problems noted. Paternal Uncle Mental health disorder Paternal Grandmother Mental health disorder Mother Mental health disorder Social History Housing: Apartment Alcohol intake: current Alcohol intake frequency: does not drink Patient Tobacco Use Status: Never used Tobacco e-Cigarette/Vaping Use: Never Used Second Hand Smoke Exposure: No service: No Current occupational status: employed Cognitive needs: No Hearing needs: No Vision needs: Yes Review of Systems Const All systems reviewed & are unremarkable except as noted in HPI and below Physical Exam Vital Signs: Last Vital Signs Temp 98.5 F 03/11/25 09:27 Pulse 106 H 03/11/25 09:27 BP 118/80 03/11/25 09:27 Pulse Ox 98 03/11/25 09:27 Oxygen Delivery Method Room Air 03/11/25 09:27 BMI result Body Mass Index 32.8 Const General: no acute distress, anxious and other (Very emotional - crying in the visit.) Nutritional Appearance: obese Orientation/consciousness: patient oriented x3 HEENT Head: Yes normocephalic Ears: external ears normal and TM abnormal with fluid behind the TM bilateral; not retracted General nose exam: Abnormal mucous membranes and turbinates present boggy and Nasal discharge present Face and sinus: Yes sinus tenderness Mouth: moist mucous membranes Throat: Yes uvula midline Neck Neck: Yes no lymphadenopathy Resp Effort & Inspection: normal respiratory effort Cardio Rate: tachycardic Heart sounds: S1 normal heart sound present and S2 normal heart sound present Back/Spine/Pelvis Cervical Spine: cervical muscular tenderness, pain with cervical ROM, cervical spasm and Cervical spine tenderness Neuro General: patient oriented x3, gait normal and moves all extremities Psych Speech and movement: Normal speech and movement present Assessment & Plan Assessment & Plan (1) Anxiety: Code(s): F41.9 - Anxiety disorder, unspecified Plan: Cervical radiculopathy vs. musculoskeletal strain ? likely contributing to neck and arm symptoms. Chest discomfort/palpitations ? ongoing cardiac evaluation pending; need to rule out cardiac etiology. Anxiety with possible panic attacks ? likely exacerbating physical symptoms. Viral upper respiratory infection (URI) ? mild and self-limiting. Continue follow-up with Cardiology as scheduled for stress test, echocardiogram, and Holter monitor. Discuss return precautions: worsening chest pain, shortness of breath, syncope, or new neurological deficits ? go to ED. For neck pain: recommend warm compresses, gentle stretching, and OTC NSAIDs/Tylenol PRN for pain. Encourage stress management techniques; continue therapy and current anxiety medications. Supportive care for URI (hydration, rest, saline nasal spray, decongestant PRN). Follow up with PCP or clinic if symptoms persist or worsen. (2) Chest pain of uncertain etiology: Comment: with numbness and tingling down left arm Code(s): R07.9 - Chest pain, unspecified Plan: Cervical radiculopathy vs. musculoskeletal strain ? likely contributing to neck and arm symptoms. Chest discomfort/palpitations ? ongoing cardiac evaluation pending; need to rule out cardiac etiology. Anxiety with possible panic attacks ? likely exacerbating physical symptoms. Viral upper respiratory infection (URI) ? mild and self-limiting. Continue follow-up with Cardiology as scheduled for stress test, echocardiogram, and Holter monitor. Discuss return precautions: worsening chest pain, shortness of breath, syncope, or new neurological deficits ? go to ED. For neck pain: recommend warm compresses, gentle stretching, and OTC NSAIDs/Tylenol PRN for pain. Encourage stress management techniques; continue therapy and current anxiety medications. Supportive care for URI (hydration, rest, saline nasal spray, decongestant PRN). Follow up with PCP or clinic if symptoms persist or worsen. Medications: Changed From cyclobenzaprine 5 mg PO Q8H PRN 20 tabs 0RF Muscle Spasm M54.2 - Cervicalgia To cyclobenzaprine 5 mg PO BEDTIME 20 tabs 0RF Muscle Spasm M54.2 - Cervicalgia Coding Level of Care Code Est Pt Level 4 (34727) Diagnoses Anxiety F41.9 Chest pain of uncertain etiology R07.9 Time Spent (min) 20
--- OUTSIDE RECORDS SUMMARY | 2025-03-11 10:06 | XMS_ITS | Clinical Summary ---
Author Organization [facility] [address] [place] [address] [place] [phone] Phone Care Team Providers Care Training Representative Name Role Phone Latosha Cherry MD Primary [...] Date Site/Laterality Comments OTHER SURGICAL HISTORY PROCEDURE: [place] LIG/TRNSXJ FLP TUBE ABDL/VAG APPR UNI/BI Medical [...] your loved ones. For example, early childhood assistant or elderly care for an older [...] Most Recently Relevant to Health Maintenance Insurance [facility] PUBLIC PLANS [place] [id number] Care Teams Training Representative Relationship Specialty Start Date End Date Latosha Cherry MD [address] [place] [address] PCP - General Internal Medicine 08/22/24
--- OUTSIDE RECORDS SUMMARY | 2025-03-11 10:06 | XMS_ITS | Patient Health Record ---
Author Organization [facility] Address [address] [facility] [address] [place] [address] Care Team Providers Care Radar Engineering Teacher Name Role Phone TIERNEY TELLO Unavailable [phone] Allergies No Known Allergies Reason For Referral [...] day Active Vitamin D (Ergocalciferol) 1.25 MG (55033 UT) 1 capsule Orally Once a week [...] Date Coverage End Date YOLIE MEHTA [id number] [place] [address] [id number] ZHENG LEONARDO Self - patient is the [...]
--- OUTSIDE RECORDS SUMMARY | 2025-03-11 10:06 | XMS_ITS | Clinical Summary ---
Author Organization [employer] Address [address] [facility] [address] [place] [address] Care Team Providers Care Public Health Veterinarian Name Role Phone Unavailable Primary Care Provider [...] was performed using the APTIMA(R) HPV Assay ([employer] This assay detects E6/E7 viral messenger RNA (mRNA) from 14 high-risk HPV types (16,18,31,33,35,39,45,51, 52,56,58,59,66,68). For additional information please refer to: http://education.Impulsiv/faq/PVZ654d8 (This link is being provided for informational/ educational purposes only.) The analytical performance characteristics of this assay have been determined by [employer], [place]. The modifications have not been cleared or approved by the FDA. This assay has been validated pursuant to the CLIA regulations and is used for clinical purposes. Test Performed by [facility], [facility] [place], [address] [place] [address] Tin Pierre M.D., Ph.D., Director of Laboratories , CLIA [id number] Please note: Effective 01/12/2016, HPV testing will be performed using [id number]'s APTIMA test which targets mRNA. Detecting mRNA instead of DNA, as in older methods, offers significant improvements in specificity. 06/26/2019 3:53 PM EST us May Medina CNM HISTORICAL/NON ORDERABLE LABS Final Result [facility] [address] from Last 3 Months or Most Recently Relevant to Health Maintenance
== END 2025-03-11 10:38 | disposition home or self-care (01) ==
PROVIDERS: PCP Internal Medicine; Visit Provider Nurse Practitioner Family
DX: F41.9 Anxiety disorder, unspecified (principal); R07.9 Chest pain, unspecified

== ENCOUNTER → 2025-03-11 09:18 | Outpatient (BNVA) | payer OTHER, SELFPAY | PROVIDERS: PCP Internal Medicine; Visit Provider Nurse Practitioner Family | DX: M54.2 Cervicalgia (principal); R00.2 Palpitations; R07.9 Chest pain, unspecified; F41.9 Anxiety disorder, unspecified | CPT/HCPCS: 99212 ==

== ENCOUNTER 2025-03-14 08:31 | Outpatient (AMB) | payer OTHER, SELFPAY ==
--- NOTE | 2025-03-14 08:36 | A.OFFVIS_ITS ---
Vital Signs 03/14/25 08:37 Height 5 ft 4 in Weight 188 lb BMI 32.3 BP 120/73 Blood Pressure Location Lt brachial Position Sitting Pulse 97 Intake Visit Reasons: dysphagia and BS results Intake Note: Patient follow up for dysphagia and BS results Patient cc: Nauseas after coffee, abdominal bloating, and between diarrhea and constipation on and off. Staff Nuclear Medicine Technologist Required: No Accompanied by: Self / Same As Patient Allergies prednisone Adverse Reaction (Intermediate, Verified 03/14/25 09:31) vaginal bleeding pollen Allergy (Mild, Uncoded 03/11/25 09:36) Itchy Eyes Medication List - Last Reconciled 03/14/25 by David Grace MD albuterol sulfate 90 mcg/actuation 2 puffs inhalation QID PRN albuterol sulfate 0.63 mg (3 mL) inhalation QID PRN 30 days buspirone 5 mg PO TID cyclobenzaprine 5 mg PO BEDTIME dicyclomine 10 mg PO BID levonorgestrel (Mirena) intrauterine omeprazole 20 mg PO DAILY HPI HPI dysphagia and BS results: Details: GI clinic visit for this 43 YF for FU of GERD, epigastric pain and history of gastric ulcer. Patient had an EGD and colonoscopy in October,. TODAY'S VISIT: Patient reports Nauseas after coffee, abdominal bloating, and between diarrhea and constipation on and off. Feels bloated after she eats - Has a BM once a day. Constipation is rare Gets diarrhea after certain foods - avoids triggers garlic and onions Takes Lactaid milk Tries to follow a FODMAP diet. Started taking probiotics recently - advised to switch to Align PAST VISITS: Pt complains of post prandial chest pain - can feel the food in her throat Symptoms are related to diet. Can eat a salad and get the worst stomach pain and a lot of gas Last night she had pizza with Marinara sauce and had nausea Denies recent change in bowel habits, constipation, diarrhea, black stools or rectal bleeding. Has a BM daily. Sometimes can have diarrhea related to her diet. Avoids lactose and gluten (gluten causes bloating) Denies smoking and drinks socially Patient denies major cardiac or pulmonary problems, and admits to loud snoring due to sinus issues Denies problems with anesthesia in the past. Denies being on chronic anticoagulation. Patient denies known family history of colon polyps, colon cancer or other GI malignancies. Maternal GF had prostate cancer LABS IN [employer] : Reviewed IMAGING STUDIES: ENDOSCOPIC STUDIES: 10/2023 EGD AND COLONOSCOPY SHOWED: ESOPHAGUS: Normal - biopsies were obtained from distal esophagus to check for esophagitis STOMACH: Ulcer seen on past EGD has healed Plan: If pt continues to have symptoms, consider obtaining a barium swallow to assess severity of GERD BIOPSIES SHOWED: A. Stomach, antrum, biopsy: Antral-type mucosa with mild chronic inactive inflammation; no Helicobacter organisms seen. B. Esophagus, distal, biopsy: Squamous epithelium within normal limits; no inflammation seen 01/2020 EGD AND COLON SHOWED: Endoscopy Findings: STOMACH: A 1.5 to 2 cms chronic appearing ulcer in the antrum - biopsied. Mild gastric erythema. Biopsies were obtained to check for H Pylori. Grade 2 flap valve on retroflexed examination of the cardia (pt admits to taking Alleve 2 tab 3 times a week for neck pains). DUODENUM: Normal - biopsied to check for celiac sprue. Colonoscopy Findings: No polyps were detected. Random biopsies were obtained from the TI, right and left colon and rectum. Mild diverticulosis seen in the sigmoid colon Moderate hemorrhoids in hypertrophied anal papillae on retroflexed exam. Plan: Start Omeprazole 20 mg daily for PUD and hold NSAID use. Repeat EGD in 12 weeks to confirm gastric ulcer has healed. Repeat Colonoscopy in 10 years if Colon biopsies are normal. BIOPSIES SHOWED: A. Small bowel, biopsy: Duodenal mucosa within normal limits. B. Stomach, antrum, biopsy: Antral-type and oxyntic mucosa with mild chronic inactive inflammation; no Helicobacter organisms seen. C. Stomach, ulcer, biopsy: Ulcerative gastritis; no Helicobacter organisms seen; no atypia or malignancy identified. D. Terminal ileum, biopsy: Terminal ileal mucosa within normal limits. E. Colon, right, biopsy: Colonic mucosa within normal limits. F. Colon, left, biopsy: Colonic mucosa within normal limits. G. Rectum, biopsy: Rectal mucosa within normal limits PAST GI HISTORY BY REVIEW OF MEDICAL RECORDS: 09/2022 patient was seen by COOKIE Miller: She was last seen about 1 year ago-she has not been taking PPI, many issues insurance related She does have acid reflux, intermittent epigastric pain after eating. Symptoms have been ongoing however due to insurance she has not follow through. She has been taking dicyclomine for IBS She has not had any nausea or vomiting no hematemesis, hematochezia fever chills Review procedure report and pathology, as well as recommendation from 2022 [facility] Medical History Atypical chest pain Adenomyosis of the uterus Irregular menstrual bleeding Left thyroid nodule Dyslipidemia Dyslipidemia (high LDL; low HDL) Vitamin D deficiency Lumbago with sciatica, right side Depression with anxiety Mild intermittent asthma COVID-19 virus infection Hemorrhoids Gastric ulcer Seasonal allergic rhinitis Menorrhagia IBS (irritable bowel syndrome) Surgical History History of esophagogastroduodenoscopy (EGD) H/O colonoscopy Hx of tubal ligation Family History Father No problems noted. Paternal Grandmother No problems noted. Paternal Uncle Mental health disorder Paternal Grandmother Mental health disorder Mother Mental health disorder Social History Housing: Apartment Alcohol intake: current Alcohol intake frequency: holidays/special occasions only Patient Tobacco Use Status: Never used Tobacco e-Cigarette/Vaping Use: Never Used Second Hand Smoke Exposure: No service: No Current occupational status: employed Cognitive needs: No Hearing needs: No Vision needs: Yes Review of Systems Const Reports fatigue, Denies fever(s), Reports headache(s), Reports weight gain (of 5 lbs) and Denies weight loss Eyes Denies eye discharge and Denies irritation ENT Reports Normal hearing present, Denies dysphagia, Denies dizziness and Reports headache(s) Card Denies chest pain, Denies leg edema, Denies dyspnea on exertion and Reports other (Palpitations) Resp Denies cough, Denies dyspnea on exertion and Denies wheezing GI Denies abdominal pain, Reports bloating, Denies change in bowel habits, Denies dysphagia, Reports early satiety and Denies heartburn Denies difficulty voiding, Denies dysuria and Reports other (Urinary frequency) Musc Denies back pain and Reports arthralgias Skin/Breast Denies pruritus, Denies rash and Denies jaundice Neuro Reports Normal hearing present, Denies Abnormal speech present, Denies dizziness, Reports headache(s) and Denies seizure-like activity Psych Reports anxiety, Reports depression and Denies panic attacks Endo Denies cold intolerance, Reports fatigue, Denies flushing and Denies heat intolerance Trent/Lymph Denies easy bleeding and Denies easy bruising Aller/Immun Denies wheezing Physical Exam Vital Signs: Last Vital Signs Pulse 97 03/14/25 08:37 BP 120/73 03/14/25 08:37 BMI result Body Mass Index 32.3 Const General: healthy appearing and no acute distress Nutritional Appearance: obese Orientation/consciousness: patient oriented x3 Limitations: no limitations HEENT Head: Yes normal to inspection Ears: hearing grossly normal bilaterally Mouth: Normal oral and palatal mucosa present Eyes Sclerae: sclerae normal Pupils: Equal, round and reactive pupils present Neck Neck: Yes normal visual inspection Chest Chest palpation & inspection: normal inspection of the chest Resp Effort & Inspection: normal respiratory effort Auscultation: clear to auscultation bilaterally Cardio Palpation: normal PMI Rate: regular rate Rhythm: regular rhythm Heart sounds: S1 normal heart sound present, S2 normal heart sound present and no murmurs GI Palpation (GI): Soft to palpation, nontender and No hepatosplenomegaly present Auscultation: normal bowel sounds Rectal Exam - Female: deferred Skin General skin exam: no rashes or lesions noted Neuro General: patient oriented x3, gait normal and moves all extremities Cranial nerves: Yes Equal, round and reactive pupils present and Yes Normal hearing present Speech: No Abnormal speech present Psych Appearance: grossly normal Mental Status: mental status grossly normal Assessment & Plan Assessment & Plan (1) GERD (gastroesophageal reflux disease): Code(s): K21.9 - Gastro-esophageal reflux disease without esophagitis Category: Medical (2) Gastric ulcer: Comment: reDiscussed repeat EGD She will begin omeprazole 40mg daily-try to identify and avoid Agrees to EGD-with Dr. Grace Code(s): K25.9 - Gastric ulcer, unspecified as acute or chronic, without hemorrhage or perforation Category: Medical Qualifiers: Gastric ulcer chronicity: unspecified ulcer chronicity Gastric ulcer complication status: without hemorrhage or perforation Qualified Code(s): K25.9 - Gastric ulcer, unspecified as acute or chronic, without hemorrhage or perforation (3) IBS (irritable bowel syndrome): Comment: extremely anxious regards to insurance coverage, many social stressors, upset about weight gain Continue FODMAP, identify triggers, dicyclomine Code(s): K58.9 - Irritable bowel syndrome, unspecified Category: Medical (4) Diverticulosis: Comment: maintain high-fiber diet , discuss diverticulosis/diverticulitis plan of care Code(s): K57.90 - Diverticulosis of intestine, part unspecified, without perforation or abscess without bleeding Category: Medical (5) Other lactose intolerance: Code(s): E73.8 - Other lactose intolerance Category: Medical (6) Irritable bowel syndrome with predominant constipation: Code(s): K58.1 - Irritable bowel syndrome with constipation Category: Medical (7) Colon cancer screening: Comment: 01/2020 colonoscopy showed diverticulosis and no polyps were detected. Repeat colonoscopy advised in 10 years (due 01/2030) Code(s): Z12.11 - Encounter for screening for malignant neoplasm of colon Category: Medical Plan 44 YF, with history of dyslipidemia, adenomyosis of the uterus, with irregular menstrual bleeding, history of left thyroid nodule with ultrasound done in 2021 showing a 0.6 x 0.4 x 0.6 cm nodule, with no FNA biopsy indicated, has mild intermittent asthma and history of gastric ulcer and IBS, 05/03/24 Pt complains of post prandial chest pain - can feel the food in her throat Symptoms are related to diet. Can eat a salad and get the worst stomach pain and a lot of gas Last night she had pizza with Marinara sauce and had nausea Denies recent change in bowel habits, constipation, diarrhea, black stools or rectal bleeding. Has a BM daily. Sometimes can have diarrhea related to her diet. Pt advised to schedule a barium swallow and continue Omeprazole 20 mg daily 07/20/24 Barium swallow was normal 03/14/25 Feels bloated after she eats - Has a BM once a day. Constipation is rare Gets diarrhea after certain foods - avoids triggers garlic and onions Takes Lactaid milk Tries to follow a FODMAP diet. Started taking probiotics recently - advised to switch to Align Pt advised a trail of probiotics and advised to continue a FODMAP diet FU in 4 months Coding Level of Care Code Est Pt Level 4 (94978) Diagnoses GERD (gastroesophageal reflux disease) K21.9 Gastric ulcer without hemorrhage or perforation, unspecified chronicity K25.9 Gastric ulcer chronicity: unspecified ulcer chronicity Gastric ulcer complication status: without hemorrhage or perforation IBS (irritable bowel syndrome) K58.9 Diverticulosis K57.90 Other lactose intolerance E73.8 Irritable bowel syndrome with predominant constipation K58.1 Colon cancer screening Z12.11 Time Spent (min) 22
[2025-03-14 08:37] VITALS: BP 120/73; PULSE 97; BMI 32.3
--- OUTSIDE RECORDS SUMMARY | 2025-03-14 08:51 | XMS_ITS | Clinical Summary ---
Author Organization [facility] [address] [place] [address] [place] [id number] Phone Care Team Providers Care Belt Back Operator Name Role Phone Latosha Cherry MD Primary Care Provider [phone] Allergies No known active allergies Medications OMEPRAZOLE [...] for your loved ones. For example, child adolescent care or elderly care for an older adult? [...] Most Recently Relevant to Health Maintenance Insurance [facility] PUBLIC [employer] [place] [id number] Care Teams Belt Back Operator Relationship Specialty Start Date End Date Latosha Cherry MD [address] [place] [id number] PCP - General Internal Medicine 08/22/24
--- OUTSIDE RECORDS SUMMARY | 2025-03-14 08:52 | XMS_ITS | Patient Health Record ---
Author Organization [facility] Address [address] [facility] [address] [place] [address] Care Team Providers Care Tree Fruit And Nut Crops Farmer Name Role Phone TIERNEY TELLO Unavailable [phone] Allergies No Known Allergies Reason For Referral [...] day Active Vitamin D (Ergocalciferol) 1.25 MG (93217 UT) 1 capsule Orally Once a week [...] Date Coverage End Date YOLIE MEHTA [address] [place] [address] [id number] ZHENG LEONARDO Self - patient is the [...]
--- OUTSIDE RECORDS SUMMARY | 2025-03-14 08:52 | XMS_ITS | Clinical Summary ---
Author Organization [employer] Address [address] [facility] [address] [place] [address] Care Team Providers Care Diesel Engine Fitter Name Role Phone Unavailable Primary Care Provider [...] HPV/Cotest 06/26/2024 06/26/2019 COVID-19 Vaccine (1 - 2024-2 6 season) 2024 Influenza Vaccine (#1) 2024 Zoster [...] HPV mRNA E6/E7 Not Detected NOT DETECTED [facility] Comment: This test was performed using the APTIMA(R) HPV Assay ([employer] This assay detects E6/E7 viral messenger RNA (mRNA) from 14 high-risk HPV types (16,18,31,33,35,39,45,51, 52,56,58,59,66,68). For additional information please refer to: http://education.Physicians Formula/faq/ASI869p8 (This link is being provided for informational/ educational purposes only.) The analytical performance characteristics of this assay have been determined by [employer] [place], [place]. The modifications have not been cleared or approved by the FDA. This assay has been validated pursuant to the CLIA regulations and is used for clinical purposes. Test Performed by [facility], [email or web address] [place], [address] [place] [address] Tin Pierre M.D., Ph.D., Director of Laboratories , CLIA [id number] Please note: Effective 01/12/2016, HPV testing will be performed using [employer]'s APTIMA test which targets mRNA. Detecting mRNA instead of DNA, as in older methods, offers significant improvements in specificity. 06/26/2019 3:53 PM EST us May Medina CNM HISTORICAL/NON ORDERABLE LABS Final Result [facility] [address] from Last 3 Months or Most Recently Relevant to Health Maintenance
== END 2025-03-14 09:11 | disposition home or self-care (01) ==
LOC: HO.HGI 08:32
PROVIDERS: PCP Internal Medicine; Visit Provider Internal Medicine Gastroenterology
DX: K21.9 Gastro-esophageal reflux disease without esophagitis (principal); K25.9 Gastric ulcer, unspecified as acute or chronic, without hemorrhage or perforation; K58.1 Irritable bowel syndrome with constipation; K57.90 Diverticulosis of intestine, part unspecified, without perforation or abscess without bleeding; E73.8 Other lactose intolerance
CPT/HCPCS: 99214

== ENCOUNTER → 2025-03-14 08:31 | Outpatient (BNVA) | payer OTHER, SELFPAY | PROVIDERS: PCP Internal Medicine; Visit Provider Internal Medicine Gastroenterology | DX: K21.9 Gastro-esophageal reflux disease without esophagitis (principal); K25.9 Gastric ulcer, unspecified as acute or chronic, without hemorrhage or perforation; K58.1 Irritable bowel syndrome with constipation; K57.90 Diverticulosis of intestine, part unspecified, without perforation or abscess without bleeding; E73.8 Other lactose intolerance; Z12.11 Encounter for screening for malignant neoplasm of colon | CPT/HCPCS: 99212 ==

== ENCOUNTER 2025-03-14 09:13 | Emergency (ER) | payer OTHER, SELFPAY ==
--- NOTE | ~2025-03-14 | XR_ITS ---
EXAMINATION: XR CHEST CLINICAL INFORMATION: CP COMPARISON: October 15, 2021 TECHNIQUE: Frontal view of the chest was obtained. FINDINGS: No hyperinflation. Poor inspiratory film. No consolidation, pleural effusion or pneumothorax. Cardiomediastinal silhouette size is normal. Mild S-shaped curvature of the thoracic spine. XR/XR chest 1V IMPRESSION: No acute airspace disease. Mild scoliosis versus patient positioning. Electronically signed by: Adam Quarles MD 03/14/2025 12:15 PM MADONNA CHANG
[2025-03-14 09:25] VITALS: BP 123/61; PULSE 94; RESP 18; TEMP 36.8; O2SAT 100; BMI 33.6
--- NOTE | 2025-03-14 09:33 | ECG_ITS ---
Test Reason : edmd Blood Pressure : */* mmHG Vent. Rate : 77 BPM Atrial Rate : 77 BPM P-R Int : 144 ms QRS Dur : 64 ms QT Int : 356 ms P-R-T Axes : 23 11 8 degrees QTcB Int : 402 ms Normal sinus rhythm Cannot rule out Anterior infarct , age undetermined Abnormal ECG No previous ECGs available Referred By: Generic ED Physician Electronically Signed By: NEFTALY RYAN MD
[2025-03-14 09:58] LABS: MANUAL DIFF FLAG NO
[2025-03-14 09:59] VITALS: BP 143/89; PULSE 92; RESP 14; TEMP 37.1; O2SAT 99
[2025-03-14 10:01] LABS: Hematocrit 36.7 % (37.0-47.0); Hemoglobin 11.4 g/dl (12.0-16.0); Imm Gran Abs Auto 0.01 X10*3/uL (0.00-0.03); Imm Gran Pct Auto 0.2 % (0.0-0.4); Lymphocytes Absolute Auto 1.7 X10*3/uL (1.2-4.9); Mean Corpuscular HGB Conc 31.1 g/dl (31.0-35.0); Mean Corpuscular Hemoglobin 23.9 pg (27.0-33.0); Mean Corpuscular Volume 76.9 fL (80.0-98.0); NRBC Abs Auto 0.000 X10*3/uL (0.0-0.012); NRBC Pct Auto 0.0 /100WBC (0.0-0.2); Platelet Count 267 X10*3/uL (160-400); Red Blood Count 4.77 X10*6/uL (4.20-5.50); White Blood Count 5.2 X10*3/uL (4.8-10.8)
[2025-03-14 10:03] VITALS: BP 143/89; PULSE 92; RESP 14; TEMP 37.1; O2SAT 99
[2025-03-14 10:28] LABS: Alanine Aminotransferase 14 U/L (0-31); Albumin Level 4.3 g/dL (3.5-5.0); Alkaline Phosphatase 55 U/L (39-117); Anion Gap 10 (12-20); Aspartate Amino Transferase 17 U/L (5-31); Blood Urea Nitrogen 10 mg/dL (9-16); Calcium 9.4 mg/dL (8.4-10.2); Carbon Dioxide 25 mmol/L (22-29); Chloride 108 mmol/L (96-108); Creatinine Clr Calc Pharmacy 90.2; Estimated Glomerular Filt Rate > 60; Lipase 22 U/L (8-78); Potassium 4.1 mmol/L (3.3-5.1); Sodium 139 mmol/L (135-145); Total Protein 7.2 g/dL (6.5-8.0); Troponin-I High Sensitivity < 2.7 ng/L (<3.5-17.0)
--- NOTE | 2025-03-14 11:17 | ED_ITS ---
HPI - Chest Pain General Chief Complaint: Chest Pain Stated Complaint: pain l side from neck down arm Time Seen by Provider: 03/14/25 11:08 Source: patient Mode of arrival: ambulatory Limitations: no limitations History of Present Illness ED Provider: DR. Calle HPI narrative: 44-year-old female history anxiety presented today for chest pain started 5 days ago that was radiating to the left arm and forearm with tingling of the 4th and 5th fingers, pain is more with movement or taking breath, pain is also worse with turning her neck to the left side no history of fall injury, patient was cleaning the house last week, patient had similar chest pain in the past and was diagnosed with anxiety, no recent travel, no lower extremity swelling or tenderness, no history of pulmonary embolism, no chest trauma, no rash or redness on the chest, no fever, no chills, cough. Related Data Home Medications ?Medication ?Instructions ?Recorded ?Confirmed levonorgestrel (Mirena) intrauterine 08/08/24 dicyclomine 10 mg capsule 10 mg PO BID for abdominal p ain 03/11/25 03/14/25 Previous Rx's ?Medication ?Instructions ?Recorded albuterol sulfate 0.63 mg/3 mL 0.63 mg (3 mL) inhalati on QID PRN 10/15/21 solution for nebulization shortness of breath or wheez ing 30 days #75 mL albuterol sulfate 90 mcg/actuation 2 puff inhalation Q ID PRN 12/29/23 aerosol inhaler shortness of breath or wheez ing #8.5 grams buspirone 5 mg tablet 5 mg PO TID #90 tabs 4 omeprazole 20 mg capsule,delayed 20 mg PO DAILY #90 ca ps 01/29/25 release cyclobenzaprine 5 mg tablet 5 mg PO BEDTIME [employer] sm #20 03/11/25 tabs ibuprofen 800 mg tablet 800 mg PO Q8H PRN pain #14 t abs 03/14/25 Allergies Allergy/AdvReac Type Severity Reaction Status Date / Time prednisone AdvReac Intermediate vaginal Verified 03/14/25 09:31 bleeding pollen Allergy Mild Itchy Eyes Uncoded 03/11/25 09:36 Review of Systems 2 Review of Systems: All other systems are reviewed and are negative Constitutional: Reports as per HPI and Reports no additional constitutional complaints Eyes: Reports as per HPI and Reports no additional eye complaints Reports system reviewed and no additional complaints, except as documented Cardiovascular: Reports as per HPI and Reports no additional cardiovascular complaints Respiratory: Reports as per HPI and Reports no additional respiratory complaints Gastrointestinal: Reports as per HPI and Reports no additional gastrointestinal complaints Genitourinary: Reports no additional female genitourinary complaints Musculoskeletal: Reports no additional musculoskeletal complaints Skin/Breast: Reports system reviewed and no additional complaints, except as docu Psychiatric: Reports no additional psychiatric complaints Endocrine: Reports no additional endocrine complaints Hematologic/Lymphatic: Reports no additional hematologic/lymphatic complaints Allergic/Immunologic: Reports no additional allergic/immunologic complaints Reports system reviewed and no additional complaints, except as documented and Reports Abnormal speech present [facility] Past Medical History Medical History Atypical chest pain Adenomyosis of the uterus Irregular menstrual bleeding Left thyroid nodule Dyslipidemia Dyslipidemia (high LDL; low HDL) Vitamin D deficiency Lumbago with sciatica, right side Depression with anxiety Mild intermittent asthma COVID-19 virus infection Hemorrhoids Gastric ulcer Seasonal allergic rhinitis Menorrhagia IBS (irritable bowel syndrome) Surgical History History of esophagogastroduodenoscopy (EGD) H/O colonoscopy Hx of tubal ligation Family History Family History Father No problems noted. Paternal Grandmother No problems noted. Paternal Uncle Mental health disorder Paternal Grandmother Mental health disorder Mother Mental health disorder Social History Social History Housing: Apartment Alcohol intake: current Alcohol intake frequency: holidays/special occasions only Patient Tobacco Use Status: Never used Tobacco Smoked in Last 30 Days: No e-Cigarette/Vaping Use: Never Used Second Hand Smoke Exposure: No Use of substances other than those prescribed or required for medical reasons: No Advance Directives: No Advance Directives Information Provided: Yes Patient : No service: No Current occupational status: employed Cognitive needs: No Hearing needs: No Vision needs: Yes Physical Exam 2 Vital Signs: Vital Signs: Last Vital Signs Temp 97.1 F 03/14/25 12:32 Pulse 78 03/14/25 12:32 Resp 14 03/14/25 12:32 BP 128/75 03/14/25 12:32 Pulse Ox 100 03/14/25 12:32 O2 Del Method Nasal Cannula 03/14/25 12:32 BMI result Body Mass Index 33.6 Vital signs have been reviewed and appear to be correct. Blood pressure elevated. Heart rate normal. Respiratory rate normal. Temperature normal. Oxygen saturation normal. Appearance: Alert. Oriented X3. No acute distress. Head: Normal external exam. Normocephalic. Atraumatic. No Rodas signs noted. No raccoon eyes noted Eyes: PERRLA. EOMI. Conjunctiva and sclera normal. Eyelids normal. ENT: TM's Normal. Pharynx normal. Uvula midline. Moist mucous membranes. No trismus noted. No drooling noted. No muffled voice noted. Neck:Increased shooting pain to the left shoulder with turning the head to the right Normal inspection. Neck supple. FROM. No adenopathy. Thyroid Normal. No meningeal signs. No neck mass noted. CVS: Normal heart rate and rhythm. Heart sound normal. No murmurs noted. Pulses normal throughout. Respiratory: No respiratory distress. Painless inspiration. Breath sounds normal. No wheezes/rales/rhonchi noted. Chest nontender. No accessory muscle usage noted or decreased air movement noted. Abdomen: Soft and nontender. Bowel sounds normal in all 4 quadrants. No distention noted. No organomegaly noted. No visible injury noted. Back: No CVA tenderness. Full range of motion noted. Skin: Skin warm and dry. Normal skin color. Normal skin turgor. No rashes/lesions/lacerations noted. Extremities: No lower extremity edema. Extremities exhibit normal range of motion. Extremities nontender. Neuro: Oriented X 3. Cranial nerve exam: II-XII are grossly intact No motor deficit. No sensory deficit. Reflexes normal. Course Reevaluation(s) Reevaluation #1: Physical exam and finding consistent with left cervical radiculopathy. Patient was instructed to rest, use ibuprofen if needed for pain if symptoms get worse follow-up with PCP. has muscle relaxant at home cyclobenzaprine was recommended to take 1 at bedtime Time: 13:17 Medical Decision Making Differential Diagnosis Differential Diagnoses: The differential diagnosis associated with the presentation includes (Chest wall pain, costochondritis, muscular pain, ACS, pulmonary embolism, cervical radiculopathy, anxiety, shingle, electrolyte derangement, severe anemia.) Admission/Observation Consideration of admission/observation: Escalation of care including admission/observation considered Lab Data MDM Lab Attestation statement: I reviewed the patient's lab results. 03/14/25 09:53 03/14/25 09:53 Labs: Lab Results 03/14/25 03/14/25 Range/Units 09:53 11:27 WBC 5.2 (4.8-10.8) X10*3/uL RBC 4.77 (4.20-5.50) X10*6/uL Hgb 11.4 L (12.0-16.0) g/dl Hct 36.7 L (37.0-47.0) % MCV 76.9 L (80.0-98.0) fL MCH 23.9 L (27.0-33.0) pg MCHC 31.1 (31.0-35.0) g/dl RDW 16.7 H (11.0-16.0) % Plt Count 267 (160-400) X10*3/uL MPV 10.6 (9.4-12.3) fL Immature Gran % (Auto) 0.2 (0.0-0.4) % Neut % (Auto) 58.6 (45-73) % Lymph % (Auto) 32.4 (20-40) % [place] % (Auto) 6.5 (2-11) % Eos % (Auto) 0.8 (0-4) % Baso % (Auto) 1.5 (0-2) % Lymph # (Auto) 1.7 (1.2-4.9) X10*3/uL [place] # (Auto) 0.3 (0.1-1.2) X10*3/uL Eos # (Auto) 0.0 (0.0-0.4) X10*3/uL Baso # (Auto) 0.1 (0.0-0.2) X10*3/uL Abs Immat Gran (auto) 0.01 (0.00-0.03) X10*3/uL Absolute Neuts (auto) 3.1 (2.0-8.3) x10*3/uL Absolute Nucleated RBC 0.000 (0.0-0.012) X10*3/uL Nucleated RBC % (auto) 0.0 (0.0-0.2) /100WBC D-Dimer High Sensitivty < 150 NG/ML Sodium 139 (135-145) mmol/L Potassium 4.1 (3.3-5.1) mmol/L Chloride 108 (96-108) mmol/L Carbon Dioxide 25 (22-29) mmol/L Anion Gap 10 L (12-20) BUN 10 (9-16) mg/dL Creatinine 0.81 (0.5-1.4) mg/dL Estim Creat Clear Calc 90.2 Estimated GFR > 60 Random Glucose 93 (60-115) mg/dL Calcium 9.4 (8.4-10.2) mg/dL Total Bilirubin 0.5 (0.0-1.0) mg/dL AST 17 (5-31) U/L ALT 14 (0-31) U/L Alkaline Phosphatase 55 (39-117) U/L Troponin I High Sens < 2.7 < 2.7 (<3.5-17.0) ng/L Total Protein 7.2 (6.5-8.0) g/dL Albumin 4.3 (3.5-5.0) g/dL Lipase 22 (8-78) U/L Independent Interpretation I performed an independent interpretation of an: Plain X-Ray (Chest: No acute intrathoracic pathology.) Radiology Impression Discussion of test interpretation with radiology: I have reviewed the radiologist's reading. Discharge Plan Discharge Clinical Impression: Cervical radiculopathy Patient Disposition: Home, Self-Care Instructions: Cervical Radiculopathy (ED) Prescriptions: New ibuprofen 800 mg tablet 800 mg PO Q8H PRN (Reason: pain) Qty: 14 0RF No Action buspirone 5 mg tablet 5 mg PO TID Qty: 90 1RF omeprazole 20 mg capsule,delayed release(DR/EC) 20 mg PO DAILY Qty: 90 1RF albuterol sulfate 0.63 mg/3 mL solution for nebulization 0.63 mg inhalation QID PRN (Reason: shortness of breath or wheezing) 30 Days Qty: 75 0RF albuterol sulfate 90 mcg/actuation HFA aerosol inhaler 2 puff inhalation QID PRN (Reason: shortness of breath or wheezing) Qty: 8.5 0RF Mirena 21 mcg/24hr (up to 8 yrs) 52 mg intrauterine device intrauterine dicyclomine 10 mg capsule 10 mg PO BID cyclobenzaprine 5 mg tablet 5 mg PO BEDTIME Qty: 20 0RF Referrals: aLtosha Cherry MD [Primary Care Provider, Internal Medicine] Print Language: Croatian
[2025-03-14 11:52] LABS: Troponin-I High Sensitivity < 2.7 ng/L (<3.5-17.0)
[2025-03-14 12:15] LABS: D Dimer High Sensitivity < 150 NG/ML
[2025-03-14 12:32] VITALS: BP 128/75; PULSE 78; RESP 14; TEMP 36.2; O2SAT 100
[2025-03-14 13:50] VITALS: BP 128/75; PULSE 78; RESP 14; TEMP 36.2; O2SAT 100
[2025-03-14 13:59] VITALS: BP 128/75; PULSE 78; RESP 14; TEMP 36.2; O2SAT 100
== END 2025-03-14 14:00 | disposition home or self-care (01) ==
PROVIDERS: Emergency Provider Emergency Medicine; PCP Internal Medicine
DX: M54.12 Radiculopathy, cervical region (principal); R07.89 Other chest pain; M54.2 Cervicalgia; Z79.899 Other long term (current) drug therapy
CPT/HCPCS: 36415; 71045; 80053; 83690; 84484; 85025; 85379; 93005; 99285

== ENCOUNTER → 2025-03-14 09:33 | Outpatient (BNV) | payer OTHER, SELFPAY | PROVIDERS: Emergency Provider Emergency Medicine; PCP Internal Medicine; Visit Provider Internal Medicine Cardiovascular Disease | DX: R94.31 Abnormal electrocardiogram [ECG] [EKG] (principal); G71.09 Other specified muscular dystrophies | CPT/HCPCS: 93010 ==

== ENCOUNTER → 2025-03-14 11:24 | Outpatient (BNV) | payer OTHER, SELFPAY | PROVIDERS: Emergency Provider Emergency Medicine; PCP Internal Medicine; Visit Provider Radiology Diagnostic Radiology | DX: R07.9 Chest pain, unspecified (principal) | CPT/HCPCS: 71045 ==